=== PATIENT | female | born 1990 | race American Indian/Alaskan Native ===

== ENCOUNTER 2021-11-17 08:17 | Outpatient (CLI) | payer BC, SELFPAY ==
[2021-11-17 08:31] LABS: Glucose Fasting Check 85 mg/dl (60-115)
[2021-11-17 14:13] LABS: Glucose 1 Hour Gest 194 mg/dl (70-180)
[2021-11-17 14:13] LABS: Glucose GTT-Gestational 3 Hr 141 mg/dl (70-140)
== END 2021-11-17 08:18 | disposition home or self-care (01) ==
LOC: NFLDREF 08:18
PROVIDERS: Visit Provider Advanced Practice Midwife
DX: Z34.83 Encounter for supervision of other normal pregnancy, third trimester (principal); Z3A.31 31 weeks gestation of pregnancy
CPT/HCPCS: 82951; 82952

== ENCOUNTER 2021-12-27 08:40 | Outpatient (CLI) | payer BC, SELFPAY ==
--- OUTSIDE RECORDS SUMMARY | 2021-12-27 08:42 | XMS_ITS | Clinical Summary ---
:1990 Author Organization [address] [employer] [facility] [place] [address] Care Team Providers Name Role Phone Pierre Dyson MD Primary Care Provider [phone] Sang Vogt CNM Unavailable Allergies Active Allergy Reactions Severity Noted Date Comments Cats (Fur, Dander, Saliva) Throat Swelling/Closing High Cefaclor Hives 01/13/2020 Medications Medication Sig Dispensed Refills Start Date End Date Status albuterol HFA 90 Inhale 1-2 Puffs 1 Inhaler 0 01/13/2020 Active mcg/actuation inhaler by mouth every 4 hours if needed. fluticasone (50 mcg Inhale 2 Sprays 1 Bottle 0 01/13/2020 Active per actuation) nasal into both nostrils solution (FLONASE) once daily. flunisolide, 25 mcg INHALE 2 SPRAYS 25 mL 12 04/10/2021 Active per actuation, nasal INTO BOTH NOSTRILS (NASALIDE) 25 mcg TWO TIMES A DAY (0.025 %) nasal sprayIndications: Mild persistent asthma with exacerbation Breo Ellipta 100-25 INHALE ONE PUFF BY 60 Each 12 04/10/2021 Active mcg/dose MOUTH EVERY DAY inhalerIndications: Mild persistent asthma with exacerbation multivitamin Take 1 Tablet by 90 Tablet 3 05/25/2021 Active () 27 mg iron- mouth once daily 800 mcg with a meal. folicIndications: Encounter for supervision of other normal in first trimester Active Problems Problem Noted Date complicated by abdominal mass Estimated Date of Delivery Comments Yes 01/14/2022 Encounters Date Type Specialty Care Team Description 10/05/2021 Orders Only Scanner <No scans attac hed> 10/02/2021 Hospital Encounter [facility]idan Michel [facility] Travel from Last 3 Months Immunizations Name Administration Dates Next Due Influenza, IIV4 01/13/2020 Tdap 04/29/2018 Family History Medical History Relation Name Comments Diabetes Father Diabetes Mother Stroke Mother mini strokes Thyroid Disease Sister Relation Name Status Comments Father Alive Mother Alive Sister Social History Tobacco Use Types Packs/Day Years Used Date Never Smoker Smokeless Tobacco: Never Used Alcohol Use Standard Drinks/Week Comments Never 0 (1 standard drink = 0.6 oz pure alcoho l) Alcohol Habits Answer Date Recorded How often do you have a drink containing alcohol? Never 01/13/2020 How many drinks containing alcohol do you have on a typical Not asked day when you are drinking? How often do you have six or more drinks on one occasion? 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 See encounter summary. Progress Notes 05/25/2021 - 6w4d - Tiffany Ruiz RN OB Education. This is her 3 . H er significant other is involved. HPI: Currently she is feeling tired. Past Medical History: . Date ? ? Asthma ? ? Deaf ? ? Migraine headache ? ? Varicella OB History Para Term 3 2 2 There is no problem list on file for pablo s patient. Current Outpatient Rx Medication Sig Dispense Refill ? ? albuterol HFA 90 mcg/actuation inhaler Inhale 1-2 Puffs by mouth every 4 hours if needed. 1 Inhaler 0 ? ? Breo Ellipta 100-25 mcg/dose inhaler INHALE ONE PUFF BY MOUTH EVERY DAY 60 Each 12 ? ? Crutch For home use. 1 Device 0 ? ? flunisolide, 25 mcg per actuation, nasal (NASALIDE) 25 mcg (0.025 %) nasal spray INHALE 2 SPRAYS INTO BOTH NOSTRILS TWO TIMES A DAY 25 mL 12 ? ? fluticasone (50 mcg per actuation) nasal solution (FLONASE) Inhale 2 Sprays into both nostrils once daily. 1 Bottle 0 Medications have been reviewed by me and are current to the best of my knowledge and ability. Discussed and given written information on the following topics: 1. Alcohol/Chemical Use: none 2. She does not smoke, and has not smoke d in the past. Quit smoking: none 3. Physical Activity: discussed Current activity:walk 2 miles 4. Screened for Domestic Abuse: none 5. Mood:goodnone 6. Meds, Herbs, Vitamins: discussed Given list of over the counter medicatio n that could be used in at the approval of the OB provider. 7. Nutrition: discussed Calcium intake is adequate. She does not take supplements. Caffeine: discussed Sugar substitute:none Fish:counseled, information provided and discussed Lunch meats:counseled Avoid foods high in calories from sugar and fat. Iron/protein intake Fluids 8. Sleep: adequate 9. Toxoplasmosis Precaution: none Exposure to cats:allegries 10.Quad Screen: none 11. Ultrasound 18-20 weeks. 12. Avoidance of sauna/hot tubes emphasi zed. 13. Frequency of visits: Monthly until 28 weeks then biweekly unt il 36 weeks, then weekly until 40 weeks unless problems. 14. Usual weight gain: 25-35 for women s tarting with normal weight. 15. Need for Rhogam shots based on blood typing done with labwork today. Rhogam shots at 28 weeks and [address] if still for Rh - mothers. Another Rhogam within 72 hours of delive ry if baby Rh positive. 16. Discussed CEA classes and Babystop a long with given written information. Breast or bottle feeding: breast Discussed resources available, nurses, O Camryn JAEGER, lacatation healthcare network consultant and Babystop class. Advised to check on breastpumps with in surance. 17. Reviewed Bloodwork to be done at [facility] [place] OB: CBC, Hepatitis B, HIV, RPR, Gonorrhea, Chlamydia, UA, URINE CULTURE, Drug screen, TSH, Blood type. RPR testing also done at 28 weeks and delivery. RPR at 28 weeks and after delivery. Tdap shot at end of . 18. visits: Bring list of questions. Warning signs: vaginal bleeding, fluid l eaking from your vagina, severe abdominal pain, nausea/vomiting more than 4-5 times a day or if not able to keep anything down, fever more than 100.4, problems wi th urination and headache that doesn't g o away with tylenol. A/P: OB Education. OB labs are ordered. She is in need of a prescription for vitamins and she has her next OB visit scheduled with Dr. Ugarte . 90 minutes spent with patient and greate r than 50% was spent on counseling. Tiffany Ruiz RN .................... 05/25/2021 10:21 AM NESS OPERATIONS ANALYST Last Filed Vital Signs Vital Sign Reading Time Taken Comments Blood Pressure 108/63 03/15/2020 2:45 PM BUSINESS OPERATIONS ANALYST Pulse 110 03/15/2020 2:45 PM BUSINESS OPERATIONS ANALYST Temperature 36.6 ??C (97.9 ??F) 03/15/2020 1:15 PM BUSINESS OPERATIONS ANALYST Respiratory Rate 16 03/15/2020 3:00 PM BUSINESS OPERATIONS ANALYST Oxygen Saturation 99% 03/15/2020 2:45 PM BUSINESS OPERATIONS ANALYST Inhaled Oxygen Concentration - - Weight 66.2 kg (146 lb) 09/12/2020 10:39 AM CDT Height 157.5 cm (5' 2.01) 09/12/2020 10:39 AM CDT Body Mass Index 26.7 09/12/2020 10:39 AM CDT Plan of Treatment Health Maintenance Due Date Last Done Comments Pneumococcal series for age 19-64 09/08/1995 (1 - PCV) Hepatitis C screening for age 0509/08/2007 18-79 Pap test for age 21-65 2010 Depression screening for age 12+ 01/12/2021 01/13/2020 BMI (ht and wt on same day) for 09/12/2021 09/12/2020, 08/2020, age 18+ 03/10/2020, Additional history exists Influenza for age 9-49 12/28/2021 01/13/2020 Tetanus booster 04/29/2028 04/29/2018 Tdap Completed 04/29/2018 COVID-19 vaccine series Completed 04/19/2021, 09/02/2020, 08/11/2020 Medical Devices Implanted Type Area Millwright Helper Device Shelf Model / Identifier Expiration Serial / Date Lot Sys Meniscal Cvd 360 Fast-Fix - [id number] Left: Chavez Kelly nd Nephew 10/26/2022 [id number] / Implanted: Qty: 3 on 03/15/2020 by Marcello Arellano MD at [facility] / [id number] Description: From vendors stock Procedures Procedure Name Priority Date/Time Associated Diagnosis Comme nts SCAN-ULTRASOUND 10/05/2021 12:00 AM Resul ts for this REPORT CDT procedure are i n the results section. US OB DETAIL Routine 10/02/2021 1:46 PM High-risk pregna ncy Results for this ANATOMY SINGLE CDT in second trimester proced ure are in the results section. from Last 3 Months Results SCAN-ULTRASOUND REPORT (10/05/2021 12:00 AM CDT) Narrative This result has an attachment that is no t available. Scanner OTHER US OB DETAIL ANATOMY SINGLE (10/02/2021 1:46 PM CDT) Anatomical Region Laterality Modality , 2or 3 TRIMESTER Ult rasound Specimen (Source) Anatomical Collection Method Collection Time Re ceived Time Location / / Volume Laterality 10/02/2021 1:26 PM CDT Narrative 10/02/2021 1:50 PM CDT Referred By: SANG ??AUDELIA ??CNM Indications Code 24 weeks gestation of Z3A.24 Suspected right adrenal mass on ou tside ultrasound measuring 1.2 cm Normal NIPT Hx C/S x1 Pt is deaf Detail ultrasound IMPRESSION: Intrauterine at 24w 0d. presentation is Variable. EFW 678 grams, percentile: 53. ?? Growth parameters and estimated we ight are appropriate for gestational age. ? No major structural anomalies identified . No markers for aneuploidy identified. Normal Deepest Vertical Pocket of amniot ic fluid: 4.8 cm. Placental location: Anterior. ?? There is no evidence of placenta previa. The transabdominal cervical length is 3. 3 cm. ?? RECOMMENDATIONS: -Return to primary provider for continue d care. -No alterations in the delivery plan are necessary. -No medication changes are indicated. -No BPPs or NSTs suggested. -No further ultrasounds are necessary fo r the present indication. COMMENT: New government regulations related to Cures Act require that this note be released to the patient immediately, anai etimes before the referring provider has been contacted. ??The following information i s being provided to the patient. Present findings are reassuring. The cy ielivia was seen by the Perinatologist today. ??The previous ultrasound and the rec ords were reviewed. ??The results of today's ultrasound were communicated to the patient. Concern of adrenal mass in the fetus: No evidence of adrenal hemorrhage or masses were seen today. ??Although adrenal masses and hem orrhage are common causes of abdominal mass, I see no evidence of mass or hemorrhage. ??Ty pically a resolving hemorrhage will leave some residual area of echogenicity. ??When these resol ve, they rarely cause problems. ??Prior images were unable to be visualized for comparison reilly pedroza, however, detailed imaging as well as additional real-time ultrasound performed by myself are without any evidence of masses or abnormalities. ?? Reassurance was given. Patient was seen today with the assistan ce of an splicing technician. ??All questions were answered to her satisfact ion. Medical Decision Making: Low Level [address]0627 ?Limited Diagnoses including two or more self-limited problems, and concern of abdominal mass. ?Limited Data including review of p rior ultrasound and review of prior external notes ?Minimal risk of mortality to the f etus from additional testing. Services Provided: Procedures Code DETAIL ANATOMY 27607.0 Procedure Note Aidan Michel MD - 10/02/2021Format ting of this note might be different from the original. Referred By: SANG VOGT [facility] IndicationsCode 24 weeks gestation of [id number].24 Suspected right adrenal mass on ou tside ultrasound measuring 1.2 cm Normal NIPT Hx C/S x1 Pt is deaf Detail ultrasound IMPRESSION: Intrauterine at 24w 0d. presentation is Variable. EFW 678 grams, percentile: 53. Growth parameters and estimated we ight are appropriate for gestational age. No major structural anomalies identified . No markers for aneuploidy identified. Normal Deepest Vertical Pocket of amniot ic fluid: 4.8 cm. Placental location: Anterior. There is no evidence of placenta previa. The transabdominal cervical length is 3. 3 cm. RECOMMENDATIONS: -Return to primary provider for continue d care. -No alterations in the delivery plan are necessary. -No medication changes are indicated. -No BPPs or NSTs suggested. -No further ultrasounds are necessary fo r the present indication. COMMENT: New government regulations related to Cures Act require that this note be released to the patient immediately, anai etimes before the referring provider has been contacted. The following information is being provided to the patient. Present findings are reassuring. The pat ient was seen by the Perinatologist today. The previous ultrasound and the rec ords were reviewed. The results of today's ultrasound were communicated to the patient. Concern of adrenal mass in the fetus: No evidence of adrenal hemorrhage or masses were seen today. Although adrenal masses and hemor rhage are common causes of abdominal mass, I see no evidence of mass or hemorrhage. Typi ritu a resolving hemorrhage will leave some residual area of echogenicity. When these resolve , they rarely cause problems. Prior images were unable to be visualized for comparison t yovany, however, detailed imaging as well as additional real-time ultrasound performed by myself are without any evidence of masses or abnormalities. Reassurance was given. Patient was seen today with the assistan ce of an splicing technician. All questions were answered to her satisfact ion. Medical Decision Making: Low Level 50086 Limited Diagnoses including two or more self-limited problems, and concern of abdominal mass. Limited Data including review of prior ultrasound and review of prior external notes Minimal risk of mortality to the fetus from additional testing. Services Provided: ProceduresCode DETAIL [id number] Sang Vogt CNM from Last 3 Months Insurance Payer Benefit Plan / Subscriber ID Effective Dates Phone Addre ss Type AddThis [id number] 2019-Present [address] [place] [address] Advance Directives Latest Code Status on File Code Status Date Activated Date Inactivated Comments Full Code 03/15/2020 6:34 AM 03/15/2020 6:06 PM Code Status Discussion: Discussed Care Teams Certified Energy Manager Relationship Specialty Start Date End Date Pierre Dyson PCP - General Family Practice 03/01/20 MD [address] [place] [address] Sang Vogt CNM Referring Provider Certified Nurse Dimensional Integration Engineer 09/21/211999 [place] [address]
--- NOTE | 2021-12-27 08:45 | CRLHL7_ITS ---
For Patients: As a result of the Century Cures Act, medical imaging exams and procedure reports are released immediately into your electronic medical record. You may view this report before your referring provider. If you have questions, please contact your health care provider. INDICATION: Maternal care. TECHNIQUE: Ultrasound OB pelvis transabdominal. Real-time ayala-scale imaging of the fetus was performed without stress testing. COMPARISON: Ultrasound 09/11/2021. FINDINGS: Sonographic imaging demonstrates a single living intrauterine gestation. Fetus demonstrates a regular cardiac rate of 146 beats per minute. Fetus has a cephalic orientation. Amniotic fluid volume is normal with single deepest pocket measuring 7.1 cm. Placenta is anterior. Cervix is not visualized. Biometric measurements: Biparietal diameter: 9.3 cm, 37 week 6 day, 93rd percentile. Head circumference: 34.3 cm, 39 week 4 day, 91 percentile. Abdominal circumference: 35 cm, 38 week 5 day, greater than 97th percentile. Femur length: 6.8 cm, 34 week 5 day, 13th percentile. Estimated weight: 3322 grams, 89th percentile. Estimated ultrasound age by today`s measurements is 37 week 5 day. Amniotic fluid volume appears normal. breathing movements, motion, and tone were all observed. IMPRESSION: Single viable intrauterine with adequate interval growth. Fetus is 89th percentile based on estimated weight. Dictated by Fabricio Mason MD @ 12/27/2021 11:46:53 AM (Electronically Signed)
== END 2021-12-27 08:41 | disposition home or self-care (01) ==
LOC: US 08:41
PROVIDERS: Visit Provider Obstetrics & Gynecology
DX: O99.013 Anemia complicating pregnancy, third trimester (principal); Z3A.37 37 weeks gestation of pregnancy
CPT/HCPCS: 76816

== ENCOUNTER 2021-12-27 09:45 | Outpatient (CLI) | payer BC, SELFPAY ==
--- OUTSIDE RECORDS SUMMARY | 2021-12-27 09:46 | XMS_ITS | Clinical Summary ---
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 Advised to check on breastpumps with in surance. 17. Reviewed Bloodwork to be done at [facility] OB: CBC, Hepatitis B, HIV, RPR, Gonorrhea, [...] Tiffany Ruiz RN .................... 05/25/2021 10:21 AM AL FEEDER Last Filed Vital Signs Vital Sign Reading Time Taken Comments Blood Pressure 108/63 03/15/2020 2:45 PM ANIMAL FEEDER Pulse 110 03/15/2020 2:45 PM ANIMAL FEEDER Temperature 36.6 ??C (97.9 ??F) 03/15/2020 1:15 PM ANIMAL FEEDER Respiratory Rate 16 03/15/2020 3:00 PM ANIMAL FEEDER Oxygen Saturation 99% 03/15/2020 2:45 PM ANIMAL FEEDER Inhaled Oxygen Concentration - - Weight 66.2 [...] 09/02/2020, 08/11/2020 Medical Devices Implanted Type Area Molasses Coloring Operator Device Shelf Model / Identifier Expiration Serial / Date Lot Sys Meniscal Cvd 360 Fast-Fix - [id number] Left: Chavez Kelly nd Nephew 10/26/2022 [id number] / Implanted: Qty: 3 on 03/15/2020 by Marcello Arellano MD at [facility] / [id number] Description: From vendors stock Procedures Procedure Name [...] today with the assistan ce of an telecommunication systems designer. ??All questions were answered to her satisfact ion. Medical Decision Making: Low Level 77795 ?Limited Diagnoses including two or more self-limited problems, and concern of abdominal mass. ?Limited Data including review of p rior ultrasound and review of prior external notes ?Minimal risk of mortality to the f etus from additional testing. Services Provided: Procedures Code DETAIL ANATOMY 06460.0 Procedure Note Aidan Michel MD - 10/02/2021Format ting of this note might be different from the original. Referred By: SANG VOGT [facility] IndicationsCode 24 weeks gestation of [id number].24 Suspected right adrenal mass on ou tside [...] today with the assistan ce of an telecommunication systems designer. All questions were answered to her satisfact ion. Medical Decision Making: Low Level 18705 Limited Diagnoses including two or more self-limited problems, and concern of abdominal mass. Limited Data including review of prior ultrasound and review of prior external notes Minimal risk of mortality to the fetus from additional testing. Services Provided: ProceduresCode DETAIL [id number] Sang Vogt CNM from Last 3 Months Insurance Payer Benefit Plan / Subscriber ID Effective Dates Phone Addre ss Type Berg [id number] 2019-Present [address] [place] [address] Advance Directives Latest Code Status on File Code Status Date Activated Date Inactivated Comments Full Code 03/15/2020 6:34 AM 03/15/2020 6:06 PM Code Status Discussion: Discussed Care Teams Associate Professor Of Mathematics Relationship Specialty Start Date End Date Pierre Dyson PCP - General Family Practice 03/01/20 MD [address] [place] [address] Sang Vogt CNM Referring Provider Certified Nurse Logistics Support 09/21/211999 [place] [address]
[2021-12-28 11:39] LABS: Strep B DNA Probe NEGATIVE (Negative)
== END 2021-12-27 09:46 | disposition home or self-care (01) ==
LOC: NFLDREF 09:45
PROVIDERS: Visit Provider Obstetrics & Gynecology
DX: Z34.93 Encounter for supervision of normal pregnancy, unspecified, third trimester (principal)
CPT/HCPCS: 87081; 87653

== ENCOUNTER 2022-01-05 11:05 | Inpatient (IN) | payer BC, SELFPAY ==
[2022-01-05] VITALS (19 sets, daily range): BP systolic 106–125; BP diastolic 67–77; PULSE 86–104; RESP 16–20; TEMP 36.7–37.2; O2SAT 96–97; BMI 30.4
--- OUTSIDE RECORDS SUMMARY | 2022-01-05 10:56 | XMS_ITS | Clinical Summary ---
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 Advised to check on breastpumps with in surance. 17. Reviewed Bloodwork to be done at [facility] OB: CBC, Hepatitis B, [...] Tiffany Ruiz RN .................... 05/25/2021 10:21 AM AVING MACHINE OPERATOR Last Filed Vital Signs Vital Sign Reading Time Taken Comments Blood Pressure 108/63 03/15/2020 2:45 PM CONCAVING MACHINE OPERATOR Pulse 110 03/15/2020 2:45 PM CONCAVING MACHINE OPERATOR Temperature 36.6 ??C (97.9 ??F) 03/15/2020 1:15 PM CONCAVING MACHINE OPERATOR Respiratory Rate 16 03/15/2020 3:00 PM CONCAVING MACHINE OPERATOR Oxygen Saturation 99% 03/15/2020 2:45 PM CONCAVING MACHINE OPERATOR Inhaled Oxygen Concentration - - Weight 66.2 [...] wt on same day) for 09/12/2021 09/12/2020, 01/0 08/2020, age 18+ 03/10/2020, Additional history exists Influenza for age 9-49 12/28/2021 01/13/2020 Tetanus booster 04/29/2028 04/29/2018 Tdap Completed 04/29/2018 COVID-19 vaccine series Completed 04/19/2021, 09/02/2020, 08/11/2020 Medical Devices Implanted Type Area Collision Repair Technician Device Shelf Model / Identifier Expiration Serial / Date Lot Sys Meniscal Cvd 360 Fast-Fix - [id number] Left: Byrne A nd Nephew 10/26/2022 [id number] / Implanted: Qty: 3 on 03/15/2020 by Marcello Arellano MD at [facility] [employer] / [id number] Description: From vendors stock Procedures Procedure Name Priority Date/Time Associated Diagnosis Comme nts SCAN-ULTRASOUND 10/05/2021 12:00 AM Resul ts for this REPORT CDT procedure are i n the results section. from Last 3 Months Results SCAN-ULTRASOUND REPORT (10/05/2021 12:00 AM CDT) Narrative This result has an attachment that is no t available. Scanner OTHER from Last 3 Months Insurance Payer Benefit Plan / Subscriber ID Effective Dates Phone Addre ss Type Group [employer] [id number] 2019-Present [address] [place] [address] Advance Directives Latest Code Status on File Code Status Date Activated Date Inactivated Comments Full Code 03/15/2020 6:34 AM 03/15/2020 6:06 PM Code Status Discussion: Discussed Care Teams Inspector And Mender Relationship Specialty Start Date End Date Pierre Dyson PCP - General Family Practice 03/01/20 MD [address] [place] [address] Raine Vogt CNM Referring Provider Certified Nurse Student Services Counselor 09/21/211999 [place] [address]
[2022-01-05 12:00] LABS: Eosinophils Absolute Auto 0.03 K/uL (0.00-0.50); Eosinophils Percent Auto 0.3 % (0.0-7.0); Hematocrit 35.3 % (33.0-51.0); Hemoglobin* 12.1 gm/dL (12.0-16.0); Immature Granulocytes Abs Auto 0.02 K/uL (0.00-0.30); Lymphocytes Percent Auto 16.4 % (20-44); Mean Corpuscular HGB Conc 34 gm/dL (32-36); Mean Corpuscular Hemoglobin 32 pg (26-34); Mean Corpuscular Volume 92 fL (80-100); Monocytes Percent Auto 5.6 % (0.0-11.0); Neutrophils Percent Auto 77.5 % (42.0-72.0); Platelet Count* 212 K/uL (140-440); RDW Coefficient of Variation % 14.1 % (11.5-15.5); Red Blood Count 3.82 m/uL (4.00-5.20); White Blood Count* 9.26 K/uL (4.50-11.00)
[2022-01-05 12:02] LABS: Slide Review Reflex No
--- NOTE | 2022-01-05 12:24 | P.LDBA_ITS ---
Subjective History of Present Illness Time Seen by Provider: 12:25 Date Seen: 01/05/22 Narrative: Miriam is a 31yo with viable male fetus at 37w4d GA. SYLVAIN determined by sonogram at 7w4d, not consistent with LMP. She experieced SROM of copious clear fluid about 0800 today. movements normal. Some uterine contractions. course included late initiation of care with [facility] at 31w. Gestational diabetes with moderately good diet control. She took oral iron supplement for hemoglobin 10.6; declines blood transfusion. Flonase prn. GBS negative. Rh positive. Her first child was born vaginally, second was delivered by due to maternal exhaustion. She desires TOLAC; signed consent in clinic. Patient is being admitted to Labor and Delivery with SROM at 37w4d GA. Her full history and physical was dictated by Dr. Cassidy on 01.03.2022. Please see this for further details. Miriam is deaf; diplomatic interpreter/translator present. OB - H&P: Exam Physical Exam: Vital signs: Temp Pulse Resp BP Pulse Ox 98.9 F 88 16 107/69 96 01/05/22 11:54 01/05/22 11:54 01/05/22 11:54 01/05/22 11:54 01/05/22 10:18
--- NOTE | 2022-01-05 13:18 | PM.OBPNL ---
Pain Control Time Seen by Provider: 13:18 Date Seen: 01/05/22 Pain control: tolerating well Contractions Contraction pattern: Irregular Contraction intensity: Moderate Pelvic Exam Dilation (cm): 4 Effacement (%): 80 Station: -1 Comments: Copious fluid. Cervix soft, midposition. Fetus (Single) Amniotic Membrane Status: SROM status: Category l Assessment and Plan Comments: Will recheck cervix in 2-3 hours. Pitocin if no significant change. Check CBG 1H postprandial. If abnormal, consider insulin drip.
[2022-01-05 15:32] LABS: SARS PCR* Negative SARS-CoV-2 (Negative)
[2022-01-05] MEDS: LACTATED RINGERS 1000 ML 1,000 ML 125 ML IV (23:39)
[2022-01-05] MEDS: OXYTOCIN 30 unit/500 ML in NS 30 UNIT/500 ML BAG IVPB (23:40)
[2022-01-06] VITALS (16 sets, daily range): BP systolic 102–149; BP diastolic 59–86; PULSE 78–104; RESP 16–20; TEMP 36.6–37.1; O2SAT 95–96
[2022-01-06] MEDS: LIDOCAINE 1% MDV 20 ML INJECTION (03:28)
--- NOTE | 2022-01-06 04:00 | P.OBPRC_ITS ---
Procedure Delivery date: 01/06/22 Procedure Done: Global Procedure Details: Miriam is a 31yo now para 3003 who gave by to a vigorous viable male Violeta at 37w5d GA; baby is breastfed. SROM of clear fluid occurred about 0800 on 01.05.2022. Cervix was completely dilated at 0215 on 01.06.2022; she used nitrous oxide during Stage 2. Baby was born in OA position at 0309 on 01.06.2022. Placenta was spontaneous at 0313. A right lateral second-degree laceration was repaired in the usual fashion with 3- 0 Vicryl after adequate local anesthetic with lidocaine. QBL 150mL. Sponge and sharp counts correct. Mother and stable in room 202. She is GBS negative, Rh positive, rubella immune. Her was complicated history of for maternal exhaustion, by GDM A1--with excellent postprandial CBG at Center--as well as by mild anemia of treated with oral iron. 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
[2022-01-06] MEDS: IBUPROFEN 600 MG TABLET PO ×4 (05:41→22:16)
[2022-01-06] MEDS: bisacodyL 5 MG TABLET DR PO (21:33)
[2022-01-07] MEDS: IBUPROFEN 600 MG TABLET PO ×2 (05:22→11:15)
[2022-01-07 05:41] VITALS: BP 99/65; PULSE 84; RESP 16; TEMP 36.6; O2SAT 96
[2022-01-07 07:08] LABS: Hemoglobin* 11.2 gm/dL (12.0-16.0)
--- NOTE | 2022-01-07 10:33 | PM.OBDSVD1 ---
DS: Providers Provider Time Seen by Provider: 10:33 Date Seen: 01/07/22 Date of admission: 01/05/22 11:05 Primary care physician: Not a Local Provider Admitting Clinician: Jeremy Montenegro MD Attending Physician on discharge: Jeremy Montenegro MD Date of Discharge: 01/07/22 DS: Diagnosis Discharge Diagnosis (1) Gestational diabetes: Status: Acute Problem details: Diet controlled. (2) Deaf: Status: Acute Problem details: Needs ASL interpretor (3) Vaginal after (): Status: Acute Problem details: with right oblique second-degree perineal laceration DS: Medications Discharge Medications Other Medication Instructions: OTC ibuprofen 600mg PO Q6H PRN. OTC acetaminophen 500-1000mg PO Q6H PRN pain not relieved >1H after ibuprofen. Exam Const: Vital Signs, click to edit/add: Vital Signs - 24 hr 01/06/22 13:00 01/06/22 16:14 01/06/22 21:18 Temperature 98.2 F 98.4 F 97.8 F Pulse Rate [Pulse Oximeter] 88 86 90 Respiratory Rate 20 18 16 Blood Pressure [Ri ght Arm] 102/76 103/74 113/79 Pulse Oximetry 95 95 96 Oxygen Delivery Me thod Room Air Room Air Room Air 01/07/22 05:41 Temperature 97.8 F Pulse Rate [Pulse Oximeter] 84 Respiratory Rate 16 Blood Pressure [Ri ght Arm] 99/65 Pulse Oximetry 96 Oxygen Delivery Me thod Room Air Documenting provider has reviewed patient's vital signs: yes Common normals: no apparent distress and healthy appearing General appearance: cooperative, comfortable and well developed HENMT: General ear: hearing grossly impaired Neck & C-Spine: Common normals: full ROM General: normal visual inspection Resp: Common normals: normal respiratory effort and no use of accessory muscles Cardio: Common normals: regular rate Rate: regular rate Extremity: Common normals: normal to inspection and full ROM Neuro: Common normals: CN's II-XII intact bilaterally Psych: Common normals: mental status grossly normal, cooperative and affect normal OB - DS: Summary Hospital Course Hospital Course: Miriam wright a 31 year old now P 3003 who was admitted to the Center on 01/05/22 for TOLAC after onset of spontaneous labor. She gave to a viable vigorous male Violeta by vaginal delivery on 01.06.2022. A right oblique second-degree perineal laceration was repaired in the usual fashion. PPD#1 hemoglobin 11.2. Uterine and perineal pain is well controlled. Lochia is moderate and decreasing. She is voiding completely. Passing flatus; no N/v. She is breast feeding, and has a pump at home. She is Rh positive, rubella immune; she received Tdap in October. Asthma stable with daily Flonase. Peripartum Data complications: none [place] Gender: Male Discharge Plan: Home Time Spent with Patient Time attestation: Total time spent providing and/or coordinating discharge services: Discharge Plan Discharge Disposition: Home, Self-Care Date of Admission: 01/05/22 11:05 Attending Provider on Discharge: Jeremy Montenegro Primary Care Provider: Provider,Not a Local Condition: Stable Anticipated Discharge Date/Time: 01/07/22 00:29 Discharge Medications: New acetaminophen 500 mg Tablet 1,000 mg PO Q6H PRN (Reason: refractory pain 1H after NSAID) Qty: 1 0RF bisacodyl [Gentle Laxative (bisacodyl)] 5 mg Tablet,Delayed Release (Dr/Ec) 5 mg PO BID PRN (Reason: constipation) Qty: 1 0RF guaifenesin [Mucinex] 600 mg Tablet Extended Release 12hr 1,200 mg PO BID Qty: 1 0RF ibuprofen 600 mg Tablet 600 mg PO Q6H Qty: 1 0RF pramoxine 1 % Foam 1 applic topical QID PRNQty: 15 0RF Lanolin (HPA) 100 % Cream 1 applic topical Q1H PRNQty: 7 0RF Continued fluticasone furoate-vilanterol 100-25 mcg/dose blister with device 1 inh inhalation DAILY prenat.vits,david,[id number] Tablet 1 tab PO QDAY fluticasone propionate [Flonase Allergy Relief] 50 mcg/actuation spray,suspension 1 spray intranasal QDAY Rx Instructions: administer into each nostril Discontinued ferrous sulfate 325 mg (65 mg iron) tablet 325 mg PO QDAY Qty: 60 1RF (DME) Blood Glucose Meter Misc See Rx Instructions .MEDSUPPLY Qty: 1 0RF Rx Instructions: As directed (DME) lancets Misc See Rx Instructions .MEDSUPPLY Qty: 100 3RF Rx Instructions: Test blood sugar 4 times daily. (DME) Blood Glucose Meter Misc See Rx Instructions .MEDSUPPLY Qty: 1 0RF Rx Instructions: As directed (DME) Test Strips Misc See Rx Instructions .MEDSUPPLY Qty: 100 3RF Rx Instructions: Test blood sugar 4 times daily. Discharge Orders: Discharge Order (Routine); Ordered 01/07/22 Ordered By: Jeremy Montenegro Patient Education: OB Vaginal/Breast Feeding Activity Level: Activity as Tolerated Discharge Diet: High Fiber Follow Up Appointments: Provider,Not a Local [Primary Care Provider] - Forms: MyHealth Info Instructions
== END 2022-01-07 11:49 | disposition home or self-care (01) | DRG 560 ==
LOC: OB CLI 11:15 → OB 11:15
PROVIDERS: Admitting Provider Obstetrics & Gynecology; Visit Provider Obstetrics & Gynecology
DX: O34.211 Maternal care for low transverse scar from previous cesarean delivery (principal); O24.420 Gestational diabetes mellitus in childbirth, diet controlled; O70.1 Second degree perineal laceration during delivery; O99.02 Anemia complicating childbirth; D64.9 Anemia, unspecified; H91.90 Unspecified hearing loss, unspecified ear; Z3A.37 37 weeks gestation of pregnancy; Z37.0 Single live birth
CPT/HCPCS: 36415; 85018; 85025; 86850; 86900; 86901; 87635; 99213; A9270; J7120

== ENCOUNTER 2023-06-03 08:40 | Outpatient (CLI) | payer BC, SELFPAY ==
--- OUTSIDE RECORDS SUMMARY | 2023-06-03 08:42 | XMS_ITS | Clinical Summary ---
Author Name Unknown Organization [facility] Address [place], [place] [address] Care Team Providers Care Websphere Commerce Developer Name Role Phone Pierre Dyson MD Primary Care Provider Raine Vogt CNM Unavailable [phone] Allergies Active Allergy Reactions Criticality Noted Date Comments Cats (Fur, Dander, Saliva) Throat Swelling/Closing High 01/13/2020 Cefaclor Hives 01/13/2020 Medications Medication Sig Dispensed Refills Start Date End Date Status fluticasone (50 mcg per actuation) nasal solution (FLONASE) Inhale 2 Sprays into both nostrils once daily. 1 Bottle 0 01/13/2020 Active multivitamin () 27 mg iron- 800 mcg folicIndications:Enco unter for supervision of other normal in first trimester Take 1 Tablet by mouth once daily with a meal. 90 Tablet 3 05/25/2021 Active levothyroxine (SYNTHROID) 75 mcg tabletIndications:Hyp othyroidism (acquired) Take 1 Tablet (75 mcg) by mouth before breakfast. 90 Tablet 3 09/10/2022 Active diclofenac topical (VOLTAREN) 1 % gelIndications:Acute pain of left knee,Knee strain, left, initial encounter Apply 4 g topically to affected area(s) four times daily. 50 g 0 03/15/2023 Active albuterol HFA (PRO-AIR; VENTOLIN; PROVENTIL) 90 mcg/actuation inhalerIndications:Mi ld persistent asthma with exacerbation Inhale 2 Puffs by mouth every 4 hours if needed for Shortness Of Breath. 18 g 12 04/10/2023 Active flunisolide, 25 mcg per actuation, nasal (NASALIDE) 25 mcg (0.025 %) nasal sprayIndications:Mild persistent asthma with exacerbation Inhale 2 Sprays to both nostrils two times daily. 50 mL 12 04/10/2023 Active fluticasone furoate-vilanteroL (Breo Ellipta) 100-25 mcg/dose inhalerIndications:Mi ld persistent asthma with exacerbation Inhale 1 Puff by mouth once daily. 120 Each 04/10/2023 Active Active Problems Problem Noted Date Diagnosed Date Primary osteoarthritis of left knee 05/10/2023 Chondromalacia of left knee 05/10/2023 Bodies, loose, joint, knee, left 05/10/2023 Bilateral sensorineural hearing loss 04/02/2022 ASCUS with positive high risk HPV cervical 02/02 Overview: 01/30/2022: NIL/HPV 18+ 03/05/2022: Charlotte and ECC - NED 1 04/10/2023: ASCUS/HPV 18+ Plan: Colposcopy complicated by abdominal mass Comments Yes Encounters Date Type Department Care Team Description 05/10/2023 9:00 AM MULTICULTURAL SERVICES LIBRARIAN Office Visit [facility] [address] [phone] Marcello Valenzuela MD Follow Up (left knee MRI results) 05/09/2023 Travel 05/08/2023 11:00 AM MULTICULTURAL SERVICES LIBRARIAN - 05/08/2023 11:59 PM MULTICULTURAL SERVICES LIBRARIAN Hospital Encounter [facility] [address] [place] [address] Marcello Valenzuela MD Acute pain of left knee 05/08/2023 Travel 04/25/2023 Telephone [facility] [address] [place] [address] Pierre Dyson MD Pap Plan (Colposcopy ) 04/10/2023 1:20 PM MULTICULTURAL SERVICES LIBRARIAN Office Visit [facility] [address] [place] [address] Pierre Dyson MD Physical; Immunization/Injecti on (COVID-19 vaccine) 04/10/2023 Travel 03/18/2023 4:20 PM MULTICULTURAL SERVICES LIBRARIAN Ancillary Procedure [facility] [address] [place] [phone] 03/18/2023 4:00 PM MULTICULTURAL SERVICES LIBRARIAN Office Visit [facility] [address] [place] [phone] Marcello Valenzuela MD [facility] Med (Left Knee- 03/14/2023) 03/18/2023 Travel 03/15/2023 3:10 PM MULTICULTURAL SERVICES LIBRARIAN Ancillary [address] [address] 03/15/2023 2:20 PM MULTICULTURAL SERVICES LIBRARIAN Office Visit [facility] [address] [place] [address] [place] [phone] Jose Hirsch PA Knee Injury (L knee injury; WC 03/14/23 s/p turning quickly to tend to child she felt her knee lock up, immediate pain and could not bear weight on L leg. ) 03/15/2023 12:30 PM MULTICULTURAL SERVICES LIBRARIAN Office Visit [facility] [address] [place] [address] [place] [phone] No Show 03/15/2023 Travel from Last 3 Months Immunizations Name Administration Dates Next Due COVID-19 Vaccine Spikevax (M oderna 50mcg/0.5mL) 12YO+ [id number] Formula PF 04/10/2023 COVID-19 vaccine (Smarty RingBio NTech 30mcg/0.3mL) 12YO+ BIVALENT PF, MDV 01/30/2022 Influenza, IIV4 01/28/2023, 2,06/09/2021,2019 Pneumococcal Conj 20-valent (Prevnar 20) 04/10/2023 Tdap 11/09/2021,04/29/2018 Family History Medical History Relation Name Comments No Known Problems Brother No Known Problems Daughter Diabetes Father No Known Problems Half-Brother No Known Problems Half-Sister No Known Problems Maternal Aunt No Known Problems Maternal Grandfather No Known Problems Maternal Grandmother No Known Problems Maternal Uncle Diabetes Mother Stroke Mother mini strokes No Known Problems Other No Known Problems Paternal Aunt No Known Problems Paternal Grandfather No Known Problems Paternal Grandmother No Known Problems Paternal Uncle Thyroid Disease Sister No Known Problems Son Relation Name Status Comments Brother Daughter Father Alive Half-Brother Half-Sister Maternal Aunt Maternal Grandfather Maternal Grandmother Maternal Uncle Mother Alive Other Paternal Aunt Paternal Grandfather Paternal Grandmother Paternal Uncle Sister Son Social History Tobacco Use Types Packs/Day Years Used Date Smoking Tobacco: Never Smokeless Tobacco: Never Alcohol Use Standard Drinks/Week Comments Never 0 (1 standard drink = 0.6 oz pur e alcohol) PHQ-2 Answer Date Recorded PHQ-2 TOTAL SCORE 0 04/10/2023 Social Connections Answer Date Recorded Frequency of Communication with Friends and Fami ly 0 07/24/2022 Financial Resource Strain Answer Date R ecorded Difficulty of Paying Living Expenses 3 07/24/2022 Difficulty of Paying Living Expenses Not on file 07/24/2022 Food Insecurity Answer Date Recorded Worried About Running Out of Food in the Last Ye ar 1 07/24/2022 Transportation Needs Answer Date Record ed Lack of Transportation (Medical) 1 07/24/2022 Housing Stability Answer Date Recorded Unable to Pay for Housing in the Last Year 1 07/24/2022 Comments Yes Sex and Gender Information Value Date Recorded Sex Assigned at Female 04/30/2020 1:15 PM MULTICULTURAL SERVICES LIBRARIAN Gender Identity Female 04/30/2020 1:15 PM MULTICULTURAL SERVICES LIBRARIAN Sexual Orientation Choose not to disclose 2020 9:29 PM MULTICULTURAL SERVICES LIBRARIAN Obstetrics History Para Term AB IAB SAB Ectopic Multiple Livin g Live Births 4 2 2 Date Outcome GA Total Labor Labor/2nd/3rd Weight Sex Delivery Anes PTL Naomie A1 A5 Name Cl in Term F CS-Class i david Term M Vag Current Summary Episode Dates Number of Fetuses Estimated Date of Delivery 05/10/2023 - Present (06/03/2023) Unknown Dating Summary Based On SYLVAIN GA Diff Last Menstrual Period on 03/29/2023 (Exact Date) 01/03/2024 Last Filed Vital Signs Vital Sign Reading Time Taken Comments Blood Pressure 104/80 04/10/2023 1:32 PM MULTICULTURAL SERVICES LIBRARIAN Pulse 84 04/10/2023 1:32 PM MULTICULTURAL SERVICES LIBRARIAN Temperature 36.7 ??C (98 ??F) 03/15/2023 2:31 PM MULTICULTURAL SERVICES LIBRARIAN Respiratory Rate 18 03/15/2023 2:31 PM MULTICULTURAL SERVICES LIBRARIAN Oxygen Saturation 98% 03/15/2023 2:31 PM MULTICULTURAL SERVICES LIBRARIAN Inhaled Oxygen Concentration - - Weight 74.4 kg (164 lb) 04/10/2023 1:32 PM MULTICULTURAL SERVICES LIBRARIAN Height 160 cm (5' 3) 04/10/2023 1:32 PM MULTICULTURAL SERVICES LIBRARIAN Body Mass Index 29.05 04/10/2023 1:32 PM MULTICULTURAL SERVICES LIBRARIAN Plan of Treatment Upcoming Encounters Date Type Department Care Team (Late st Contact Info) Description 06/14/2023 11:15 AM MULTICULTURAL SERVICES LIBRARIAN OB Encounter [facility] [address] [place] [address] Jeanna Hernandez MD [address] [place] [address] Health Maintenance Due Date Last Done Comments HIV for age 15-65 2004 BMI (ht and wt on same day) for age 18+ 04/10/2024 04/10/2023, 09/06/2022, 07/24/2022, Additional history exists Depression screening for age 12+ 04/10/2024 04/10/2023, 01/30/2022, 01/09/2022, Additional history exists Pap test for age 21-65 04/10/2024 , 04/10/2023, 03/05/2022, Additional history exists Tetanus booster 11/10/2031 11/09/2021, 04/29/2018 Tdap Completed 11/09/2021, 04/29/2018 Hepatitis C screening for ag e 18-79 Completed 01/30/2022 Influenza for age 9-49 Completed 3, 01/30/2022, 06/09/2021, Additional history exists COVID-19 vaccine series Completed 04/10/20 23, 01/30/2022, 04/19/2021, Additional history exists Pneumococcal series for age 6-64 Completed 04/10/20 23 Medical Devices Implanted Type Area Mercury Recoverer Device Identifier Shelf Expiration Date Model / Serial / Lot Sys Meniscal Cvd 360 Fast-Fix - [id number] Implanted:Qty: 2 on 03/15/2020 by Marcello Valenzuela MD at [facility] Left: Knee [employer] 11/09/2022 [id number] / / [id number] Sys Meniscal Rev Cvd 360 Fast-Fix - [id number] Implanted:Qty: 1 on 03/15/2020 by Marcello Valenzuela MD at [facility] Left: Knee [employer] 05/27/2020 [id number] / / [id number] Sys Meniscal Cvd 360 Fast-Fix - [id number] Implanted:Qty: 3 on 03/15/2020 by Marcello Valenzuela MD at [facility] Left: Knee [employer] 10/26/2022 [id number] / / [id number] Description:From vendors sto ck Procedures Procedure Name Priority Date/Time Associated Diagnosis Comments MR KNEE LEFT WO Routine 05/08/2023 11:33 AM MULTICULTURAL SERVICES LIBRARIAN Acute pain of left knee STEAM HOIST OPERATOR THIN PREP PAP SCREEN IMAGED Routine 04/10/2023 5:30 PM MULTICULTURAL SERVICES LIBRARIAN Pap smear for cervical cancer screening HPV THIN PREP Routine 04/10/2023 5:30 PM MULTICULTURAL SERVICES LIBRARIAN Pap smear for cervical cancer screening TSH Routine 04/10/2023 2:24 PM MULTICULTURAL SERVICES LIBRARIAN Hypothyroidism (acquired) XR KNEE 1 VIEW LEFT Routine 03/18/2023 3 :59 PM MULTICULTURAL SERVICES LIBRARIAN Acute pain of left knee XR KNEE 3 VIEWS LEFT STAT 03/15/2023 3:23 PM MULTICULTURAL SERVICES LIBRARIAN Acute pain of left knee from Last 3 Months Results * MR KNEE LEFT WO CONTRAST (05/08/2023 11:33 AM MULTICULTURAL SERVICES LIBRARIAN) Anatomical Region Laterality Modality KNEE L Magnetic Resonan ce 05/09/2023 12:5 5 PM MULTICULTURAL SERVICES LIBRARIAN Impressions 05/09/2023 12:55 PM MULTICULTURAL SERVICES LIBRARIAN 1. Interval partial medial meniscectomy without recurrent meniscal tear. 2. ACL graft is again identified and is intact. 3. Loose bodies in the posterior aspect of the intercondylar notch and anterior aspect of the medial compartment are new in the interval. 4. Slight progression of the lateral compartment chondromalacia including focal area of full thickness chondromalacia. 5. Mild chondromalacia in the medial compartment. 6. Small knee joint effusion. Dictated by Eleuterio Massey MD @ 05/09/2023 12:55:48 PM (Electronically Signed) Narrative 05/09/2023 12:55 PM MULTICULTURAL SERVICES LIBRARIAN For Patients: ??As a result of the Century Cures Act, medical imaging exams and procedure reports are released immediately into your electronic medical record. ??You may view this report before your referring provider. ??If you have questions, please contact your health care provider. INDICATION: Acute knee pain. History of ACL and meniscal repairs. COMPARISON: 01/20/2020 MRI. TECHNIQUE: Unenhanced MRI of the left knee. FINDINGS: Medial compartment: Interval partial medial meniscectomy with resection of the bucket-handle fragment. No recurrent medial meniscal tear. The root attachments are intact. Articular cartilage: Mild chondral fissuring and thinning centrally remains unchanged. Lateral compartment: Lateral meniscus: Intact. Articular cartilage: High-grade partial thickness chondromalacia posteriorly including a focal 1.3 centimeter area full thickness chondromalacia. Findings have progressed the interval. Mild thinning and fissuring centrally. Patellofemoral compartment: Articular cartilage: The articular surfaces are smooth without focal articular cartilage defect or subchondral marrow changes. The patellofemoral compartment. Ligaments: Anterior cruciate ligament: The ACL graft is again identified. The graft is intact without tear or arthrofibrosis. Posterior cruciate ligament: Intact. Medial collateral ligament and posteromedial corner complex: Medial collateral ligament: Normal. The medial head of the gastrocnemius and semimembranosus tendons: Normal. The lateral collateral ligament complex and posterior lateral corner complex: Fibular collateral ligament: Normal. Biceps femoris tendon complex: Normal. Iliotibial band: Normal. Popliteus tendon: Normal. Posterolateral corner capsule: Normal. Extensor mechanism: Distal quadriceps tendon: Normal. Patellar tendon: Normal. Medial patellar retinaculum and medial patellofemoral ligament: Normal. Lateral patellar retinaculum: Normal. No patellar tilt or subluxation. Joint space and capsule: There are 2 new intra-articular bodies. There is an intra-articular body posterior to the PCL that measures up to 0.9 cm in size and a 2nd loose body at the anterior medial margin of the medial compartment adjacent to the medial femoral condyle that measures up to 1.1 cm in size. Small knee joint effusion. No popliteal cyst. Bones and soft tissues: No fracture or contusion. No osseous lesion. No subcutaneous edema or hematoma. Procedure Note Eleuterio Massey MD - 05/09/2023 For Patients: As a result of the Cures Act, medical imagingexams and procedure reports are released immediately into your electronicmedical record. You may view this report before your referring provider.If you have questions, please contact your health care provider. INDICATION: Acute knee pain. History of ACL and meniscal repairs. COMPARISON: 01/20/2020 MRI. TECHNIQUE: Unenhanced MRI of the left knee. FINDINGS: Medial compartment: Interval partial medial meniscectomy with resection ofthe bucket-handle fragment. No recurrent medial meniscal tear. The rootattachments are intact. Articular cartilage: Mild chondral fissuring and thinning centrallyremains unchanged. Lateral compartment: Lateral meniscus: Intact. Articular cartilage: High-grade partial thickness chondromalaciaposteriorly including a focal 1.3 centimeter area full thicknesschondromalacia. Findings have progressed the interval. Mild thinning andfissuring centrally. Patellofemoral compartment: Articular cartilage: The articular surfaces are smooth without focalarticular cartilage defect or subchondral marrow changes. The patellofemoral compartment. Ligaments: Anterior cruciate ligament: The ACL graft is again identified. The graftis intact without tear or arthrofibrosis. Posterior cruciate ligament: Intact. Medial collateral ligament and posteromedial corner complex: Medial collateral ligament: Normal. The medial head of the gastrocnemius and semimembranosus tendons:Normal. The lateral collateral ligament complex and posterior lateral cornercomplex: Fibular collateral ligament: Normal. Biceps femoris tendon complex: Normal. Iliotibial band: Normal. Popliteus tendon: Normal. Posterolateral corner capsule: Normal. Extensor mechanism: Distal quadriceps tendon: Normal. Patellar tendon: Normal. Medial patellar retinaculum and medial patellofemoral ligament: Normal. Lateral patellar retinaculum: Normal. No patellar tilt or subluxation. Joint space and capsule: There are 2 new intra-articular bodies. There isan intra-articular body posterior to the PCL that measures up to 0.9 cm insize and a 2nd loose body at the anterior medial margin of the medialcompartment adjacent to the medial femoral condyle that measures up to 1.1cm in size. Small knee joint effusion. No popliteal cyst. Bones and soft tissues: No fracture or contusion. No osseous lesion. Nosubcutaneous edema or hematoma. IMPRESSION: 1. Interval partial medial meniscectomy without recurrent meniscal tear. 2. ACL graft is again identified and is intact. 3. Loose bodies in the posterior aspect of the intercondylar notch andanterior aspect of the medial compartment are new in the interval. 4. Slight progression of the lateral compartment chondromalacia includingfocal area of full thickness chondromalacia. 5. Mild chondromalacia in the medial compartment. 6. Small knee joint effusion. Dictated by Eleuterio Massey MD @ 05/09/2023 12:55:48 PM (Electronically Signed) Marcello Valenzuela MD MR * (ABNORMAL) STEAM HOIST OPERATOR THIN PREP PAP SCREEN IMAGED (04/10/2023 5:30 PM MULTICULTURAL SERVICES LIBRARIAN) Case Report Gynecologic Cytology Report ? Case: [id number] ? Authorizing Provider: ??Pierre Dyson MD Collected: ? 04/10/2023 1730 ? [facility] ?Received: ?04/10/2023 1730 ? Clinic ? First Screen: ?Shanthi Bustamante ? Rescreen: ?Chappell, Swati ? Pathologist: ? Chely Jameson ? MD Arlette ? Specimen: ?STEAM HOIST OPERATOR ThinPrep Vial Screening, Cervical ? 04/24/2023 3:13 PM MULTICULTURAL SERVICES LIBRARIAN [facility] INTERPRETATION/ RESULT ATYPICAL SQUAMOUS CELLS OF UNDETERMINED SIGNIFICANCE (ASCUS)(A) (none) 04/24/2023 3:13 PM MULTICULTURAL SERVICES LIBRARIAN [facility] R NON-NEOPLASTIC FINDING(S) Parakeratosis 04/24/2023 3:13 PM MULTICULTURAL SERVICES LIBRARIAN [facility] SPECIMEN ADEQUACY Satisfactory for evaluation Endocervical component present 04/24/2023 3:13 PM MULTICULTURAL SERVICES LIBRARIAN [facility] ENTRAL LABORATORY HPV REQUEST HPV and PAP 04/24/2023 3:13 PM MULTICULTURAL SERVICES LIBRARIAN [facility] ENTRAL LABORATORY Date of LMP 03/29/2023 04/24/2023 3:13 PM MULTICULTURAL SERVICES LIBRARIAN [facility] ENTRAL LABORATORY Last Pap Date 01/30/22 04/24/2023 3:13 PM MULTICULTURAL SERVICES LIBRARIAN [facility] ENTRAL LABOR[facility]ORY Last Pap Result NIL 3:13 PM MULTICULTURAL SERVICES LIBRARIAN [facility] ENTRAL LABORATORY Abnormal Pap or Charlotte Bx in last 5 years Yes 04/24/2023 3:13 PM MULTICULTURAL SERVICES LIBRARIAN [facility] ENTRAL LABORATORY Menstrual Status Regular Periods 04/24/2023 3:13 PM MULTICULTURAL SERVICES LIBRARIAN [facility] ENTRDE LABORATORY Charlotte Bx Done Today No 04/24/2023 3:13 PM MULTICULTURAL SERVICES LIBRARIAN [facility] LAB[facility] Additional Information None given 04/24/2023 3:13 PM MULTICULTURAL SERVICES LIBRARIAN [facility] ENTRAL LABORATORY Comment: Cytology is screened at [facility] - [address] [address] and [facility] [place] [facility] - [address] [address] and [facility] - [address] [place] [address] Interpreted at [facility] - [address], [place] [address] Automated Review Successful 04/24/2023 3:13 PM MULTICULTURAL SERVICES LIBRARIAN [facility] ENTRDE LABORATORY Comment:Specimen processed s uccessfully by automated manager cable device, ThinPrep Imaging System, [employer] ANCILLARY TESTING STEAM HOIST OPERATOR HPV Ordered, Please see separate report 04/24/2023 3:13 PM MULTICULTURAL SERVICES LIBRARIAN [facility] Note The pap test is a screening technique, not a diagnostic procedure. It is used primarily to screen for squamous cancers and precursor lesions. Published studies have shown that it is subject to both false negative and false positive results. The pap test should not be used as the sole means to diagnose or exclude pre-malignant and malignant lesions. 04/24/2023 3:13 PM MULTICULTURAL SERVICES LIBRARIAN [facility] EN[facility]AL LABORAT[facility] Other (Cervical) Non-Blood / Unknown 04/10/2023 5:30 PM MULTICULTURAL SERVICES LIBRARIAN 04/10/2023 5:30 PM MULTICULTURAL SERVICES LIBRARIAN Pierre Dyson MD PATHOLOGY/CYTOL OGY Performing Organization Address [facility]/ZIP Co de Phone Number [facility] [address] [place] [address], * (ABNORMAL) HPV HIGH RISK (04/10/2023 5:30 PM MULTICULTURAL SERVICES LIBRARIAN) TYPE 16 Negative Negative 04/15/2023 11:31 AM MULTICULTURAL SERVICES LIBRARIAN [facility] TRAL LABORATORY TYPE 18 Positive(A) Negative 04/15/2023 11:31 AM MULTICULTURAL SERVICES LIBRARIAN [facility] TRAL LABORAT[facility] OTHER HIGH RISK TYPES Negative Negative 04/15/2023 11:31 AM MULTICULTURAL SERVICES LIBRARIAN [facility] TRA LABORATORY Other (Cervical) Non-Blood / Unknown 04/10/2023 5:30 PM MULTICULTURAL SERVICES LIBRARIAN 04/11/2023 2:46 PM MULTICULTURAL SERVICES LIBRARIAN Narrative [facility] - 04/15/2023 11:31 AM MULTICULTURAL SERVICES LIBRARIAN Specimen is positive for HPV type 18 DNA. ??HPV types 16, 31, 33, 35, 39, 45, 51, 52, 56, 58, 59, 66 and 68 DNA were undetectable or below the pre-set threshold. Methodology: Mee Omar 4800 HPV Test Pierre Dyson MD MICROBIOLOGY Performing Organization Address City/[facility]/ZIP Co de Phone Number [facility] [address] [place] [address], * TSH (04/10/2023 2:24 PM MULTICULTURAL SERVICES LIBRARIAN) TSH 0.44 0.27 - 4.20 uIU/mL 04/10/2023 3:06 PM MULTICULTURAL SERVICES LIBRARIAN [facility] Blood BLOOD SPECIMEN / Unknown Venipuncture / Unknown 04/10/2023 2:24 PM MULTICULTURAL SERVICES LIBRARIAN 04/10/2023 2:25 PM MULTICULTURAL SERVICES LIBRARIAN Narrative [facility] - 04/10/2023 3:06 PM MULTICULTURAL SERVICES LIBRARIAN In Adults, TSH values between 5.00 and 10.00 uIU/ml do not necessarily indicate the presence of Hypothyroidism. Correlation with clinical findings such as presence of goiter and/or Thyroperoxidase (TPO) Antibody may be helpful. For more information please refer to CLEMENTE 2004; 291: 228-238. Pierre Dyson MD CHEMISTRY [facility] [address] [place] [address] * XR KNEE 1 VIEW LEFT (03/18/2023 3:59 PM MULTICULTURAL SERVICES LIBRARIAN) Anatomical Region Laterality Modality KNEE L Computed Radiogr aphy 03/19/2023 7:22 AM MULTICULTURAL SERVICES LIBRARIAN Narrative 03/19/2023 7:22 AM MULTICULTURAL SERVICES LIBRARIAN For Patients: ??As a result of the Cures Act, medical imaging exams and procedure reports are released immediately into your electronic medical record. ??You may view this report before your referring provider. ??If you have questions, please contact your health care provider. INDICATION: Acute left knee pain. TECHNIQUE: One view left knee. COMPARISON: 03/15/2023. FINDINGS: Gerber weightbearing view. Arthritic spurring medial and lateral compartment with mild medial compartment narrowing. Prior ACL repair. No subarticular defects identified. Dictated by Jairo Valenzuela MD @ 03/19/2023 7:22:08 AM (Electronically Signed) Procedure Note Ochoa Valenzuela MD - 03/19/2023 For Patients: As a result of the Cures Act, medical imagingexams and procedure reports are released immediately into your electronicmedical record. You may view this report before your referring provider.If you have questions, please contact your health care provider. INDICATION: Acute left knee pain. TECHNIQUE: One view left knee. COMPARISON: 03/15/2023. FINDINGS: Gerber weightbearing view. Arthritic spurring medial and lateralcompartment with mild medial compartment narrowing. Prior ACL repair. Nosubarticular defects identified. Dictated by Jairo Valenzuela MD @ 03/19/2023 7:22:08 AM (Electronically Signed) Marcello Valenzuela MD GENERAL IMAGING * XR KNEE 3 VIEWS LEFT (03/15/2023 3:23 PM MULTICULTURAL SERVICES LIBRARIAN) Anatomical Region Laterality Modality KNEES, KNEE L Computed Radiogr aphy 03/15/2023 3:33 PM MULTICULTURAL SERVICES LIBRARIAN Narrative 03/15/2023 3:33 PM MULTICULTURAL SERVICES LIBRARIAN For Patients: ??As a result of the Cures Act, medical imaging exams and procedure reports are released immediately into your electronic medical record. ??You may view this report before your referring provider. ??If you have questions, please contact your health care provider. Indication: Acute pain of the left knee Technique: Three views Comparison: Left knee 01/25/2020 Findings/Impression: Bones: No evidence of fracture. Joint spaces: Status post anterior cruciate ligament repair with screw in the proximal tibia. Small marginal osteophytes at the medial and lateral compartments with moderate knee effusion. Soft tissues: Unremarkable. Dictated by Fabricio Newsome MD @ 03/15/2023 3:33:42 PM (Electronically Signed) Procedure Note Fabricio Newsome MD - 03/15/2023 For Patients: As a result of the Cures Act, medical imagingexams and procedure reports are released immediately into your electronicmedical record. You may view this report before your referring provider.If you have questions, please contact your health care provider. Indication: Acute pain of the left knee Technique: Three views Comparison: Left knee 01/25/2020 Findings/Impression: Bones: No evidence of fracture. Joint spaces: Status post anterior cruciate ligament repair with screw inthe proximal tibia. Small marginal osteophytes at the medial and lateralcompartments with moderate knee effusion. Soft tissues: Unremarkable. Dictated by Fabricio Newsome MD @ 03/15/2023 3:33:42 PM (Electronically Signed) [facility] from Last 3 Months Advance Directives Latest Code Status on File Code Status Date Activated Date Inactivated Comments Full Code 03/15/2020 6:34 AM 03/15/2020 6:06 PM Question Answer Comments Code Status Discussion: Discussed Care Teams Websphere Commerce Developer Relationship Specialty Start Date [place] [address] PCP - General Family Practice 03/01/20 Raine Vogt CNM [address] [place] [address] Referring Provider Certified Nurse Metal Window Frame Maker 09/21/21
--- NOTE | 2023-06-03 08:45 | CRLHL7_ITS ---
For Patients: As a result of the Cures Act, medical imaging exams and procedure reports are released immediately into your electronic medical record. You may view this report before your referring provider. If you have questions, please contact your health care provider. INDICATION: First trimester scan, establish dates. COMPARISON: None. TECHNIQUE: Real-time ayala-scale imaging of the pelvis was performed. FINDINGS: Sonographic imaging demonstrates a single living intrauterine gestation. The embryo demonstrates a regular cardiac rate measuring 166 beats per minute. The embryo`s crown-rump length measurement of 1.4 cm corresponds to a gestational age of 7 weeks 4 days with a sonographic due date of 01/22/2022. There is a normal-appearing yolk sac. There are no gross abnormalities noted within the embryo at this early state of development. The gestational sac has a normal appearance. There is a 0.4 x 1.3 x 1.7 cm perigestational hemorrhage. The amount of fluid within the sac appears appropriate for gestational age. The cervix is closed. The myometrium appears normal. The ovaries are of normal size. There are no suspicious fluid collections noted in the cul-de-sac. IMPRESSION: Single living intrauterine with sonographic gestational age 7 weeks 4 days and sonographic due date 01/22/2022. Small inferior subchorionic hemorrhage measuring 4 x 13 x 17 millimeters. Dictated by Filemon Siddiqui MD @ 06/03/2023 11:28:52 AM (Electronically Signed)
== END 2023-06-03 08:41 | disposition home or self-care (01) ==
LOC: US 08:41
PROVIDERS: Visit Provider Advanced Practice Midwife
DX: Z34.91 Encounter for supervision of normal pregnancy, unspecified, first trimester (principal); O20.9 Hemorrhage in early pregnancy, unspecified; Z3A.01 Less than 8 weeks gestation of pregnancy
CPT/HCPCS: 76817; 84443; 86703; 86706; 86803; 86850; 86900; 86901; 87086; 87340

== ENCOUNTER 2023-06-03 10:04 | Outpatient (CLI) | payer BC, SELFPAY ==
--- OUTSIDE RECORDS SUMMARY | 2023-06-03 10:08 | XMS_ITS | Clinical Summary ---
Author Name Unknown Organization [facility] Address [place], [place] [address] Care Team Providers Care Digital Media Designer Name Role Phone Pierre Dyson MD Primary Care Provider Raine Vogt CNM Unavailable [phone] Allergies Active Allergy Reactions Criticality Noted Date [...] cervical 02/02 Overview: 01/30/2022: NIL/HPV 18+ 03/05/2022: [place]amm[place] and ECC - NED 1 04/10/2023: ASCUS/HPV 18+ Plan: Colposcopy complicated by abdominal mass Comments Yes Encounters Date Type Department Care Team Description 05/10/2023 9:00 AM JAIL OFFICER Office Visit [facility] [address] [address] Marcello Valenzuela MD Follow Up (left knee MRI results) 05/09/2023 Travel 05/08/2023 11:00 AM JAIL OFFICER - 05/08/2023 11:59 PM JAIL OFFICER Hospital Encounter [facility] [address] [place] [address] Marcello Valenzuela MD Acute pain of left knee 05/08/2023 Travel 04/25/2023 Telephone [facility] [address] [place] [address] Pierre Dyson MD Pap Plan (Colposcopy ) 04/10/2023 1:20 PM JAIL OFFICER Office Visit [facility] [address] [place] [address] Pierre Dyson MD Physical; Immunization/Injecti on (COVID-19 vaccine) 04/10/2023 Travel 03/18/2023 4:20 PM JAIL OFFICER Ancillary Procedure [facility] [address] [place] [address] 03/18/2023 4:00 PM JAIL OFFICER Office Visit [facility] [address] [place] [address] Marcello Valenzuela MD [facility] (Left Knee- 03/14/2023) 03/18/2023 Travel 03/15/2023 3:10 PM JAIL OFFICER Ancillary Procedure [address] [address] 03/15/2023 2:20 PM JAIL OFFICER Office Visit [facility] [address] [place] [address] [place] [address] Jose Hirsch PA Knee Injury (L knee injury; WC 03/14/23 s/p turning quickly to tend to child she felt her knee lock up, immediate pain and could not bear weight on L leg. ) 03/15/2023 12:30 PM JAIL OFFICER Office Visit [facility] [address] [place] [address] [place] [address] No Show 03/15/2023 Travel from Last 3 Months Immunizations Name Administration Dates Next Due COVID-19 Vaccine Spikevax (M oderna 50mcg/0.5mL) 12YO+ 9912-0529 Formula PF 04/10/2023 COVID-19 vaccine (getbetter!Bio NTech 30mcg/0.3mL) 12YO+ BIVALENT PF, MDV 01/30/2022 [...] Sex Assigned at Female 04/30/2020 1:15 PM JAIL OFFICER Gender Identity Female 04/30/2020 1:15 PM JAIL OFFICER Sexual Orientation Choose not to disclose 2020 9:29 PM JAIL OFFICER Obstetrics History Para Term AB IAB SAB [...] Comments Blood Pressure 104/80 04/10/2023 1:32 PM JAIL OFFICER Pulse 84 04/10/2023 1:32 PM JAIL OFFICER Temperature 36.7 ??C (98 ??F) 03/15/2023 2:31 PM JAIL OFFICER Respiratory Rate 18 03/15/2023 2:31 PM JAIL OFFICER Oxygen Saturation 98% 03/15/2023 2:31 PM JAIL OFFICER Inhaled Oxygen Concentration - - Weight 74.4 kg (164 lb) 04/10/2023 1:32 PM JAIL OFFICER Height 160 cm (5' 3) 04/10/2023 1:32 PM JAIL OFFICER Body Mass Index 29.05 04/10/2023 1:32 PM JAIL OFFICER Plan of Treatment Upcoming Encounters Date Type Department Care Team (Late st Contact Info) Description 06/14/2023 11:15 AM JAIL OFFICER OB Encounter [facility] [address] [place] [address] Jeanna Hernandez MD [address] [place] [address] Health Maintenance Due Date Last Done Comments [...] 04/10/20 23 Medical Devices Implanted Type Area Biomedical Service Engineer Device Identifier Shelf Expiration Date Model / Serial / Lot Sys Meniscal Cvd 360 Fast-Fix - [id number] Implanted:Qty: 2 on 03/15/2020 by Marcello Valenzuela MD at [facility] Left: Knee [employer] 11/09/2022 [id number] / / [id number] Sys Meniscal Rev Cvd 360 Fast-Fix - [id number] Implanted:Qty: 1 on 03/15/2020 by Marcello Valenzuela MD at [facility] Left: Knee [employer] 05/27/2020 [id number]# / / [id number] Sys Meniscal Cvd 360 Fast-Fix - [id number] Implanted:Qty: 3 on 03/15/2020 by Marcello Valenzuela MD at [facility] Left: Knee [employer] 10/26/2022 [id number] / / [id number] Description:From vendors sto ck Procedures Procedure Name Priority Date/Time Associated Diagnosis Comments MR KNEE LEFT WO Routine 05/08/2023 11:33 AM JAIL OFFICER Acute pain of left knee [facility] THIN PREP PAP SCREEN IMAGED Routine 04/10/2023 5:30 PM JAIL OFFICER Pap smear for cervical cancer screening HPV THIN PREP Routine 04/10/2023 5:30 PM JAIL OFFICER Pap smear for cervical cancer screening TSH Routine 04/10/2023 2:24 PM JAIL OFFICER Hypothyroidism (acquired) XR KNEE 1 VIEW LEFT Routine 03/18/2023 3 :59 PM JAIL OFFICER Acute pain of left knee XR KNEE 3 VIEWS LEFT STAT 03/15/2023 3:23 PM JAIL OFFICER Acute pain of left knee from Last 3 Months Results * MR KNEE LEFT WO CONTRAST (05/08/2023 11:33 AM JAIL OFFICER) Anatomical Region Laterality Modality KNEE L Magnetic Resonan ce 05/09/2023 12:5 5 PM JAIL OFFICER Impressions 05/09/2023 12:55 PM JAIL OFFICER 1. Interval partial medial meniscectomy without recurrent [...] PM (Electronically Signed) Narrative 05/09/2023 12:55 PM JAIL OFFICER For Patients: ??As a result of the [...] Signed) Marcello Valenzuela MD MR * (ABNORMAL) [facility] THIN PREP PAP SCREEN IMAGED (04/10/2023 5:30 PM JAIL OFFICER) Case Report Gynecologic Cytology Report ? Case: [id number] ? Authorizing Provider: ??Pierre Dyson MD Collected: ? 04/10/2023 1730 ? Ordering Location: ? [facility] ?Received: ?04/10/2023 1730 ? Clinic ? First Screen: ?Shanthi Bustamante ? Rescreen: ?Chappell, Swati ? Pathologist: ? Chely Jameson ? MD Arlette ? Specimen: ?[facility] ThinPrep Vial Screening, Cervical ? 04/24/2023 3:13 PM JAIL OFFICER [facility] INTERPRETATION/ RESULT ATYPICAL SQUAMOUS CELLS OF UNDETERMINED SIGNIFICANCE (ASCUS)(A) (none) 04/24/2023 3:13 PM JAIL OFFICER [facility] R NON-NEOPLASTIC FINDING(S) Parakeratosis 04/24/2023 3:13 PM JAIL OFFICER [facility] [employer] [facility] ENTRAL LABORATORY SPECIMEN ADEQUACY Satisfactory for evaluation Endocervical component present 04/24/2023 3:13 PM JAIL OFFICER [facility] ENTRAL LABORATORY HPV REQUEST HPV and PAP 04/24/2023 3:13 PM JAIL OFFICER [facility] EN[facility]AL LAB[facility] Date of LMP 03/29/2023 04/24/2023 3:13 PM JAIL OFFICER [facility] Last Pap Date 01/30/22 04/24/2023 3:13 PM JAIL OFFICER [facility] EN[facility] Last Pap Result NIL 3:13 PM JAIL OFFICER [facility] EN[facility] LAB[facility] Abnormal Pap or Mammoth Bx in last 5 years Yes 04/24/2023 3:13 PM JAIL OFFICER [facility] EN[facility] LAB[facility]ORY Menstrual Status Regular Periods 04/24/2023 3:13 PM JAIL OFFICER [facility] LAB[facility] Mammoth Bx Done Today No 04/24/2023 3:13 PM JAIL OFFICER [facility] Additional Information None given 04/24/2023 3:13 PM JAIL OFFICER [facility] EN[facility]AL LABOR[facility]ORY Comment: Cytology is screened at [facility] - [address] [address] and [facility] - [address] [place] [address] and [facility] - [address] [place] [address] Interpreted at [facility] - [address], [place] [address] Automated Review Successful 04/24/2023 3:13 PM JAIL OFFICER [facility] Comment:Specimen processed s uccessfully by automated cutter operator tile device, ThinPrep Imaging System, [employer] ANCILLARY TESTING [facility] HPV Ordered, Please see separate report 04/24/2023 3:13 PM JAIL OFFICER [facility] Note The pap test is a screening technique, not a diagnostic procedure. It is used primarily to screen for squamous cancers and precursor lesions. Published studies have shown that it is subject to both false negative and false positive results. The pap test should not be used as the sole means to diagnose or exclude pre-malignant and malignant lesions. 04/24/2023 3:13 PM JAIL OFFICER [facility] ENTRAL LABORATORY Other (Cervical) Non-Blood / Unknown 04/10/2023 5:30 PM JAIL OFFICER 04/10/2023 5:30 PM JAIL OFFICER Pierre Dyson MD PATHOLOGY/CYTOL OGY Performing Organization Address [facility]/ZIP Co de Phone Number [facility] [address] [place] [address], * (ABNORMAL) HPV HIGH RISK (04/10/2023 5:30 PM JAIL OFFICER) TYPE 16 Negative Negative 04/15/2023 11:31 AM JAIL OFFICER [facility] TR[facility] TYPE 18 Positive(A) Negative 04/15/2023 11:31 AM JAIL OFFICER [facility] OTHER HIGH RISK TYPES Negative Negative 04/15/2023 11:31 AM JAIL OFFICER [facility] TRA [facility] Other (Cervical) Non-Blood / Unknown 04/10/2023 5:30 PM JAIL OFFICER 04/11/2023 2:46 PM JAIL OFFICER Narrative [facility] - 04/15/2023 11:31 AM JAIL OFFICER Specimen is positive for HPV type 18 DNA. ??HPV types 16, 31, 33, 35, 39, 45, 51, 52, 56, 58, 59, 66 and 68 DNA were undetectable or below the pre-set threshold. Methodology: Mee Omar 4800 HPV Test Pierre Dyson MD MICROBIOLOGY Performing Organization Address City/[facility]/ZIP Co de Phone Number [facility] [address] [place] [address], * TSH (04/10/2023 2:24 PM JAIL OFFICER) TSH 0.44 0.27 - 4.20 uIU/mL 04/10/2023 3:06 PM JAIL OFFICER [facility] Blood BLOOD SPECIMEN / Unknown Venipuncture / Unknown 04/10/2023 2:24 PM JAIL OFFICER 04/10/2023 2:25 PM JAIL OFFICER Narrative [facility] - 04/10/2023 3:06 PM JAIL OFFICER In Adults, TSH values between 5.00 and 10.00 uIU/ml do not necessarily indicate the presence of Hypothyroidism. Correlation with clinical findings such as presence of goiter and/or Thyroperoxidase (TPO) Antibody may be helpful. For more information please refer to CLEMENTE 2004; 291: 228-238. Pierre Dyson MD CHEMISTRY [facility] [address] [place] [address] * XR KNEE 1 VIEW LEFT (03/18/2023 3:59 PM JAIL OFFICER) Anatomical Region Laterality Modality KNEE L Computed Radiogr aphy 03/19/2023 7:22 AM JAIL OFFICER Narrative 03/19/2023 7:22 AM JAIL OFFICER For Patients: ??As a result of the [...] KNEE 3 VIEWS LEFT (03/15/2023 3:23 PM JAIL OFFICER) Anatomical Region Laterality Modality KNEES, KNEE L Computed Radiogr aphy 03/15/2023 3:33 PM JAIL OFFICER Narrative 03/15/2023 3:33 PM JAIL OFFICER For Patients: ??As a result of the [...] Comments Code Status Discussion: Discussed Care Teams Digital Media Designer Relationship Specialty Start Date [place] [address] PCP - General Family Practice 03/01/20 Raine Vogt CNM [address] [place] [address] Referring Provider Certified Nurse End Worker 09/21/21
== END 2023-06-03 10:05 | disposition home or self-care (01) ==
PROVIDERS: PCP Advanced Practice Midwife; Visit Provider Advanced Practice Midwife
DX: Z34.81 Encounter for supervision of other normal pregnancy, first trimester (principal)
CPT/HCPCS: 84443; 86592; 86703; 86704; 86706; 86762; 86787; 86803; 86850; 86900; 86901; 87086; 87340

== ENCOUNTER 2023-07-22 09:39 | Outpatient (CLI) | payer BC, SELFPAY | END 2023-07-22 09:40 | disposition home or self-care (01) | LOC: NFLDREF 09:40 | PROVIDERS: Visit Provider Advanced Practice Midwife | DX: Z34.92 Encounter for supervision of normal pregnancy, unspecified, second trimester (principal); Z3A.16 16 weeks gestation of pregnancy | CPT/HCPCS: 81511 ==

== ENCOUNTER 2023-12-31 12:56 | Outpatient (CLI) | payer BC, SELFPAY ==
--- OUTSIDE RECORDS SUMMARY | 2023-12-31 12:58 | XMS_ITS | Clinical Summary ---
Author Organization [facility] Address [place], [place] [address] Care Team Providers Care Hand Stoner Name Role Phone Pierre Dyson MD Primary Care Provider Raine Vogt CNM Unavailable [phone] Allergies Active Allergy Reactions Criticality Noted Date Comments Cats (Fur, Dander, Saliva) Throat Swelling/Closing High 01/13/2020 Cefaclor Hives 01/13/2020 Medications Medication Sig Dispensed Refills Start Date End Date Status fluticasone (50 mcg per actuation) nasal solution (FLONASE) Inhale 2 Sprays into both nostrils once daily. 1 Bottle 01/13/2020 Active multivitamin () 27 mg iron- 800 mcg folicIndications:Enco unter for supervision of other normal in first trimester Take 1 Tablet by mouth once daily with a meal. 90 Tablet 3 05/25/2021 Active diclofenac topical (VOLTAREN) 1 % gelIndications:Acute pain of left knee,Knee strain, left, initial encounter Apply 4 g topically to affected area(s) four times daily. 50 g 03/15/2023 Active albuterol HFA (PRO-AIR; VENTOLIN; PROVENTIL) [...] Puff by mouth once daily. 120 Each 12 04/10/2023 Active levothyroxine (SYNTHROID) 75 mcg tabletIndications:Hyp othyroidism (acquired) Take 1 Tablet (75 mcg) by mouth before breakfast. 30 Tablet 1 10/17/2023 Active Active Problems Problem Noted Date Diagnosed Date Primary osteoarthritis of left knee 05/10/2023 Chondromalacia of left knee 05/10/2023 Bodies, loose, joint, knee, left 05/10/2023 Bilateral sensorineural hearing loss 04/02/2022 ASCUS with positive high risk HPV cervical 02/02 Overview: 01/30/2022: NIL/HPV 18+ 03/05/2022: [place] and ECC - NED 1 04/10/2023: ASCUS/HPV 18+ Plan: Colposcopy complicated by abdominal mass Encounters Date Type Department Care Team Description 12/18/2023 1:15 PM CDT Orders Only [facility] [address] [place] [address] Lab, [place] [facility] 12/18/2023 Travel 12/16/2023 Travel 10/16/2023 Refill [facility] [address] [place] [address] Pierre Dyson MD Refill Request (Levothyroxine) from Last 3 Months Immunizations Name Administration Dates Next Due COVID-19 Vaccine Spikevax (M oderna 50mcg/0.5mL) 12YO+ 6427-1252 Formula PF 04/10/2023 COVID-19 vaccine (ExtendEvent-Bio NTech 30mcg/0.3mL) 12YO+ BIVALENT PF, MDV 01/30/2022 [...] of Communication with Friends and Fami ly Not on file 07/29/2023 Financial Resource Strain Answer Date R ecorded [...] Housing in the Last Year 1 07/24/2022 Sex and Gender Information Value Date Recorded Sex Assigned at Female 04/30/2020 1:15 PM ELEVATOR BUILDER Gender Identity Female 04/30/2020 1:15 PM ELEVATOR BUILDER Sexual Orientation Choose not to disclose 2020 9:29 PM ELEVATOR BUILDER Obstetrics History Para Term AB IAB SAB Ectopic Multiple Livin g Live Births 4 2 2 Date Outcome GA Total Labor Labor/2nd/3rd Weight Sex Type Anes PTL Naomie A1 A5 Name Clin Term F CS-Clas sical Term M Vag Summary Episode Dates Number of Fetuses Estimated Date of Delivery 05/10/2023 - Present (12/31/2023) Unknown Dating Summary Based On SYLVAIN GA Diff Last Menstrual Period on 03/29/2023 (Exact Date) 01/03/2024 Vitals Date GA Fund Present FHR Mvmt BP Weight Edema Alb Glu Ket Dil/ Eff/Sta 09/18/2023 Inpatient data n ot displayed here. See encounter summary. Last Filed Vital Signs Vital Sign Reading Time Taken Comments Blood Pressure 122/90 09/03/2023 1:05 PM CDT Pulse 80 09/03/2023 1:04 PM CDT Temperature 36.7 ??C (98 ??F) 09/03/2023 1:04 PM CDT Respiratory Rate 18 03/15/2023 2:31 PM ELEVATOR BUILDER Oxygen Saturation 98% 03/15/2023 2:31 PM ELEVATOR BUILDER Inhaled Oxygen Concentration - - Weight 70.8 kg (156 lb) 09/03/2023 1:04 PM CDT Height 160 cm (5' 3) 09/03/2023 1:04 PM CDT Body Mass Index 27.63 09/03/2023 1:04 PM CDT Plan of Treatment Health Maintenance Due Date Last Done Comments HIV for age 15-65 2004 Influenza for age 9-49 12/29/2023 , 01/30/2022, 06/09/2021, Additional history exists Depression screening for age 12+ 04/10/2024 04/10/2023, 01/30/2022, 01/09/2022, Additional history exists Pap test for age 21-65 04/10/2024 , 04/10/2023, 03/05/2022, Additional history exists BMI (ht and wt on same day) for age 18+ 09/02/2024 09/03/2023, 04/10/2023, 09/06/2022, Additional history exists Tetanus booster 11/10/2031 11/09/2021, 04/29/2018 Tdap Completed 11/09/2021, 04/29/2018 Hepatitis C screening for age 18-79 Completed 01/30/2022 COVID-19 vaccine series Completed 04/10/20 23, 01/30/2022, 04/19/2021, Additional history exists Pneumococcal series for age 6-64 Aged Out 04/10/2023 No longer eligible based on patient's age to complete this topic Medical Devices Implanted Type Area Consulting Property Manager Device Identifier Shelf Expiration Date Model / Serial / Lot Sys Meniscal Cvd 360 Fast-Fix - [id number] Implanted:Qty: 2 on 03/15/2020 by Marcello Valenzuela MD at [facility] Left: Knee [employer] 11/09/2022 [id number] / / [id number] Sys Meniscal Rev Cvd 360 Fast-Fix - [id number] Implanted:Qty: 1 on 03/15/2020 by Marcello Valenzuela MD at [facility] Left: Knee [employer] 05/27/2020 [id number] / / [id number] Sys Meniscal Cvd 360 Fast-Fix - [id number] Implanted:Qty: 3 on 03/15/2020 by Marcello Valenzuela MD at [facility] Left: Knee [employer] 10/26/2022 [id number] / / [id number] Description:From vendors sto ck Procedures Procedure Name Priority Date/Time Associated Diagnosis Comments TSH Routine 12/18/2023 1:05 PM CDT Hypothyroidism (acquired) HPV THIN PREP Routine 04/10/2023 5:30 PM ELEVATOR BUILDER Pap smear for cervical cancer screening ANTI HCV Routine 01/30/2022 2:51 PM CDT Need for hepatitis C screening test from Last 3 Months or Most Recently Relevant to Health Maintenance Results * TSH (12/18/2023 1:05 PM CDT) TSH 0.32 0.27 - 4.20 uIU/mL 12/19/2023 12:16 AM CDT [facility] Blood BLOOD SPECIMEN / Unknown Venipuncture / Unknown 12/18/2023 1:05 PM CDT 12/18/2023 1:06 PM CDT Narrative [facility]-CEN[facility]AL LAB[facility] - 12/19/2023 12:16 AM CDT In Adults, TSH values between 5.00 and 10.00 uIU/ml do not necessarily indicate the presence of Hypothyroidism. Correlation with clinical findings such as presence of goiter and/or Thyroperoxidase (TPO) Antibody may be helpful. For more information please refer to CLEMENTE 2004; 291: 228-238. Pierre Dyson MD CHEMISTRY Performing Organization Address City/[facility]/ZIP Co de Phone Number [facility] Is That [facility] [address] [place] [address], * (ABNORMAL) HPV HIGH RISK (04/10/2023 5:30 PM ELEVATOR BUILDER) TYPE 16 Negative Negative 04/15/2023 11:31 AM ELEVATOR BUILDER [facility] TYPE 18 Positive(A) Negative 04/15/2023 11:31 AM ELEVATOR BUILDER [facility] TRAL LABORATORY OTHER HIGH RISK TYPES Negative Negative 04/15/2023 11:31 AM ELEVATOR BUILDER [facility] Other (Cervical) Non-Blood / Unknown 04/10/2023 5:30 PM ELEVATOR BUILDER 04/11/2023 2:46 PM ELEVATOR BUILDER Narrative [facility] - 04/15/2023 11:31 AM ELEVATOR BUILDER Specimen is positive for HPV type 18 DNA. ??HPV types 16, 31, 33, 35, 39, 45, 51, 52, 56, 58, 59, 66 and 68 DNA were undetectable or below the pre-set threshold. Methodology: Mee Omar 4800 HPV Test Pierre Dyson MD MICROBIOLOGY Performing Organization Address [facility] Co de Phone Number [facility] Is That [facility] [address] [place] [address] * ANTI HCV (01/30/2022 2:51 PM CDT) HEPATITIS C ANTIBODY Non-React edgar Non-React edgar 02/01/2022 12:31 AM CDT [facility] Comment:Antibodies to HCV no t detected; does not exclude the possibility of exposure to HCV. Blood BLOOD SPECIMEN / Unknown Venipuncture / Unknown 01/30/2022 2:51 PM CDT 01/30/2022 2:54 PM CDT Pierre Dyson MD SEND OUTS Performing Organization Address City/[facility]/ZIP Co de Phone Number [facility] Is That [facility] [address] [place] [address], from Last 3 Months or Most Recently Relevant to Health Maintenance Advance Directives * Full Code (Latest Code Status on File) Date Activated Date Inactivated Comments 03/15/2020 6:34 AM 03/15/2020 6:06 PM Question Answer Comments Code Status Discussion: Discussed Care Teams Hand Stoner Relationship Specialty Start Date End Date Pierre Dyson MD [address] [place] [id number] PCP - General Family Practice 03/01/20 Raine Vogt CNM [address] [place] [address] Referring Provider Certified Nurse Account Manager 09/21/21
--- NOTE | 2023-12-31 13:00 | CRLHL7_ITS ---
For Patients: As a result of the Cures Act, medical imaging exams and procedure reports are released immediately into your electronic medical record. You may view this report before your referring provider. If you have questions, please contact your health care provider. INDICATION: First trimester scan, establish dates. TECHNIQUE: Real-time ayala-scale imaging of the pelvis was performed. FINDINGS: Sonographic imaging demonstrates a single living intrauterine gestation. The embryo demonstrates a regular cardiac rate measuring 171 beats per minute. The embryo`s crown-rump length measurement of 2 cm corresponds to a gestational age of 8 weeks 4 days with a sonographic due date of 08/07/2024. There is a normal-appearing yolk sac. IMPRESSION: Normal first trimester OB ultrasound exam. Gestational age calculated at 8 weeks 4 days with a sonographic due date of 08/07/2024. Dictated by Yeimi Mcwilliams MD @ 12/31/2023 3:35:26 PM (Electronically Signed)
== END 2023-12-31 12:57 | disposition home or self-care (01) ==
LOC: US 12:56
PROVIDERS: Visit Provider Physician Assistant
DX: Z34.91 Encounter for supervision of normal pregnancy, unspecified, first trimester (principal); Z3A.08 8 weeks gestation of pregnancy
CPT/HCPCS: 76817; 84443; 86592; 86703; 86704; 86706; 86762; 86787; 86803; 86850; 86900; 86901; 87086; 87340; 87491; 87591

== ENCOUNTER 2023-12-31 14:11 | Outpatient (CLI) | payer BC, SELFPAY ==
--- OUTSIDE RECORDS SUMMARY | 2023-12-31 14:14 | XMS_ITS | Clinical Summary ---
Author Organization [facility] Address [place], [place] [address] Care Team Providers Care Recycling Or Rubbish Collector Name Role Phone Pierre Dyson MD Primary Care Provider Raine Vogt CNM Unavailable [phone] Allergies Active Allergy Reactions Criticality Noted Date [...] cervical 02/02 Overview: 01/30/2022: NIL/HPV 18+ 03/05/2022: [place] and [facility] - NED 1 04/10/2023: ASCUS/HPV 18+ Plan: Colposcopy complicated by abdominal mass Encounters Date Type Department Care Team Description 12/18/2023 1:15 PM CDT Orders Only [facility] [address] [place] [address] Lab, [place] [facility] 12/18/2023 Travel 12/16/2023 Travel 10/16/2023 Refill [facility] [address] [place] [address] Pierre Dyson MD Refill Request (Levothyroxine) from Last 3 Months Immunizations Name Administration Dates Next Due COVID-19 Vaccine Spikevax (M oderna 50mcg/0.5mL) 12YO+ 9752-0630 Formula PF 04/10/2023 COVID-19 vaccine (Roovyn-Bio NTech 30mcg/0.3mL) 12YO+ BIVALENT PF, MDV 01/30/2022 [...] Sex Assigned at Female 04/30/2020 1:15 PM BALE PILER Gender Identity Female 04/30/2020 1:15 PM BALE PILER Sexual Orientation Choose not to disclose 2020 9:29 PM BALE PILER Obstetrics History Para Term AB IAB SAB [...] CDT Respiratory Rate 18 03/15/2023 2:31 PM BALE PILER Oxygen Saturation 98% 03/15/2023 2:31 PM BALE PILER Inhaled Oxygen Concentration - - Weight 70.8 [...] this topic Medical Devices Implanted Type Area Cornice Maker Device Identifier Shelf Expiration Date Model / Serial / Lot Sys Meniscal Cvd 360 Fast-Fix - [id number] Implanted:Qty: 2 on 03/15/2020 by Marcello Valenzuela MD at [facility] Left: [employer] 11/09/2022 [id number] / / [id number] Sys Meniscal Rev Cvd 360 Fast-Fix - [id number] Implanted:Qty: 1 on 03/15/2020 by Marcello Valenzuela MD at [facility] Left: [employer] 05/27/2020 [id number] / / [id number] Sys Meniscal Cvd 360 Fast-Fix - [id number] Implanted:Qty: 3 on 03/15/2020 by Marcello Valenzuela MD at [facility] Left: [employer] 10/26/2022 [id number] / / [id number] Description:From vendors sto ck Procedures Procedure Name Priority Date/Time Associated Diagnosis Comments TSH Routine 12/18/2023 1:05 PM CDT Hypothyroidism (acquired) HPV THIN PREP Routine 04/10/2023 5:30 PM BALE PILER Pap smear for cervical cancer screening ANTI HCV Routine 01/30/2022 2:51 PM CDT Need for hepatitis C screening test from Last 3 Months or Most Recently Relevant to Health Maintenance Results * TSH (12/18/2023 1:05 PM CDT) TSH 0.32 0.27 - 4.20 uIU/mL 12/19/2023 12:16 AM CDT [facility] Blood BLOOD SPECIMEN / Unknown Venipuncture / Unknown 12/18/2023 1:05 PM CDT 12/18/2023 1:06 PM CDT Narrative [facility] - 12/19/2023 12:16 AM CDT In Adults, TSH values between 5.00 and 10.00 uIU/ml do not necessarily indicate the presence of Hypothyroidism. Correlation with clinical findings such as presence of goiter and/or Thyroperoxidase (TPO) Antibody may be helpful. For more information please refer to CLEMENTE 2004; 291: 228-238. Pierre Dyson MD CHEMISTRY Performing Organization Address City/[facility]/ZIP Co de Phone Number [facility] [address] [place] [address], * (ABNORMAL) HPV HIGH RISK (04/10/2023 5:30 PM BALE PILER) TYPE 16 Negative Negative 04/15/2023 11:31 AM [facility] P[facility]ER [facility] TYPE 18 Positive(A) Negative 04/15/2023 11:31 AM BALE PILER [facility] OTHER HIGH RISK TYPES Negative Negative 04/15/2023 11:31 AM BALE PILER [facility] Other (Cervical) Non-Blood / Unknown 04/10/2023 5:30 PM BALE PILER 04/11/2023 2:46 PM BALE PILER Narrative [facility] - 04/15/2023 11:31 AM BALE PILER Specimen is positive for HPV type 18 DNA. ??HPV types 16, 31, 33, 35, 39, 45, 51, 52, 56, 58, 59, 66 and 68 DNA were undetectable or below the pre-set threshold. Methodology: Mee Omar 4800 HPV Test Pierre Dyson MD MICROBIOLOGY Performing Organization Address [facility] Co de Phone Number [facility] [address] [place] [address] * ANTI HCV (01/30/2022 2:51 PM CDT) HEPATITIS C ANTIBODY Non-React edgar Non-React edgar 02/01/2022 12:31 AM CDT [facility] Comment:Antibodies to HCV no t detected; does not exclude the possibility of exposure to HCV. Blood BLOOD SPECIMEN / Unknown Venipuncture / Unknown 01/30/2022 2:51 PM CDT 01/30/2022 2:54 PM CDT Pierre Dyson MD SEND OUTS Performing Organization Address City/[facility]/ZIP Co de Phone Number [facility] [address] [place] [address], from Last 3 Months or Most Recently Relevant to Health Maintenance Advance Directives * Full Code (Latest Code Status on File) Date Activated Date Inactivated Comments 03/15/2020 6:34 AM 03/15/2020 6:06 PM Question Answer Comments Code Status Discussion: Discussed Care Teams Recycling Or Rubbish Collector Relationship Specialty Start Date End Date Pierre Dyson MD [address] [place] [id number] PCP - General Family Practice 03/01/20 Raine Vogt CNM [address] [place] [address] Referring Provider Certified Nurse Documentation Coordinator 09/21/21
[2023-12-31 22:29] LABS: Chlamydia DNA Amplified* NOT DETECTED (No Detected); GC DNA Amplified* NOT DETECTED (No Detected)
== END 2023-12-31 14:12 | disposition home or self-care (01) ==
PROVIDERS: Visit Provider Physician Assistant
DX: Z12.4 Encounter for screening for malignant neoplasm of cervix (principal)
CPT/HCPCS: 84443; 86592; 86703; 86704; 86706; 86762; 86787; 86803; 86850; 86900; 86901; 87086; 87340; 87491; 87591; 87624

== ENCOUNTER 2024-03-20 13:43 | Outpatient (CLI) | payer BC, SELFPAY ==
--- OUTSIDE RECORDS SUMMARY | 2024-03-22 14:21 | XMS_ITS | Clinical Summary ---
Author Organization [facility] Address [address] [place] [address]. [place] [address] Care Team Providers Care Account Planner Name Role Phone Pierre Dyson Primary Care Provider [phone] Silvana Avilez MD Unavailable [phone] Sonja Martinez MD Unavailable [phone] Allergies Active Allergy Reactions Criticality Noted Date Comments Cefaclor Hives,Anaphylaxis,Ot her (See Comments) High 01/06/2015 Unknown Itchy Medications levothyroxine (SYNTHROID/LEVOT HROID) 75 MCG tablet Take 75 mcg by mouth daily. 01/10/2024 Active predniSONE (DELTASONE) 10 MG tablet Take 10 mg by mouth daily. 02/03/2024 Active 27-1 MG TABS Take by mouth daily. Active fluticasone-moy nterol (BREO ELLIPTA) 100-25 MCG/ACT inhaler Inhale 1 puff into the lungs daily. 04/10/2023 Active Active Problems Problem Noted Date Diagnosed Date 02/04/2024 Estimated Date of Delivery Comme nts Yes 08/07/2024 Based on last me nstrual period of 11/01/2023 Encounters Date Type Department Care Team Description 03/06/2024 9:15 AM ELECTRONIC CONSOLE DISPLAY OPERATOR Office Visit [facility] [place] [address] [place] [phone] Sonja Martinez MD related condition in second trimester (Primary Dx); Cervical cerclage suture present in second trimester; History of delivery, currently ; Hypothyroidism affecting in second trimester; Bilateral hearing loss, unspecified hearing loss type 03/06/2024 8:45 AM ELECTRONIC CONSOLE DISPLAY OPERATOR Office Visit [facility] [address] [place] [phone] Marisol Dhaliwal 03/06/2024 8:41 AM ELECTRONIC CONSOLE DISPLAY OPERATOR - 03/06/2024 11:59 PM ELECTRONIC CONSOLE DISPLAY OPERATOR Hospital Encounter [facility] [address] [facility] [address] [place] [address] Sonja Martinez MD History of delivery, currently , first trimester Discharge Disposition: Home or Self Care 03/06/2024 Travel 03/01/2024 Travel 02/13/2024 MyC Medical Advice [facility] [address] [facility] [address] [place] [address] Cadence Jones 02/06/2024 Telephone [facility] Medicine [facility] [address] [place] [address] Mery Balbuena, RN Letter for School/Work 02/04/2024 9:26 AM CDT Anesthesia Event [facility] [address] [place] [address] RADHA HEMPHILL [phone] Yasmin Montgomery MD Navarro, Amanda, DO 02/04/2024 9:00 AM CDT Office Visit [facility] [address] [place] [phone] Yumiko Dhaliwalah 02/04/2024 8:30 AM CDT Hospital Encounter [facility] [address] [place] [address] RADHA HEMPHILL [phone] Raine Franklin MD 02/04/2024 8:30 AM CDT - 02/04/2024 9:30 AM CDT Surgery [facility] [address] [place] [address] RADHA HEMPHILL [phone] Raine Franklin MD CERCLAGE, CERVIX, VAGINAL APPROACH 02/04/2024 6:40 AM CDT - 02/04/2024 1:09 PM CDT Hospital Encounter [facility] [place] [phone] Raine Franklin MD Discharge Disposition: Home or Self Care 02/04/2024 6:30 AM CDT Office Visit [facility] [place] [phone] Sierra Wall 02/04/2024 Travel 02/03/2024 MyC Medical Advice [facility] [address] [place] [phone] Cadence Jones GC 01/27/2024 Telephone [facility] [address] [place] [address] Sravani Delgado, RN Appointment 01/23/2024 Telephone [facility] [address] [place] [address] Sravani Delgado, RN Appointment 01/23/2024 Transcribe Orders [facility] [address] [place] [phone] Provider, Generic External Data Family history of malignant neoplasm of breast (Primary Dx) 01/23/2024 Transcribe Orders [facility] [address] [place] [address] [address],[place] [phone] Provider, Generic External Data 01/22/2024 12:50 PM CDT Lab [facility] [address] [place] [phone] Silvana Avilez MD Encounter for screening of mother; Encounter of female for testing for genetic disease carrier status for procreative management 01/22/2024 11:45 AM CDT Office Visit [facility] [address] [place] [address] Silvana Avilez MD Cervical insufficiency during in first trimester, antepartum (Primary Dx); History of delivery, currently , first trimester 01/22/2024 10:15 AM CDT Office Visit [facility] [address] [place] [phone] Shona Oakes 01/22/2024 10:15 AM CDT Office Visit [facility] [place] [address] [place] [address] Silvana Avilez MD Stoner, Natalie E, GC Encounter for screening of mother (Primary Dx); History of delivery, currently , first trimester; Encounter of female for testing for genetic disease carrier status for procreative management; Encounter for procreative genetic counseling and testing; Deafness congenital; Family history of malignant neoplasm of breast; Family history of hypertrophic cardiomyopathy 01/22/2024 10:13 AM CDT - 01/22/2024 11:59 PM CDT Hospital Encounter [facility] Medicine [place] [address] [place] [phone] Silvana Avilez MD History of delivery, currently , first trimester Discharge Disposition: Home or Self Care 01/22/2024 Medical Correspondence [facility] [address] [place] [address] Scan, Non-Provider 01/22/2024 Orders Only [facility] [address] [place] [address] Makenzie Bowser RN History of delivery, currently , first trimester (Primary Dx) 01/22/2024 Travel 01/14/2024 PRE VISIT [facility] [place] [address] [place] [address] Ana Jenkins, CRUZ Genetic Counseling (Hx PTD and demise at 21 weeks); Ultrasound (NT-Hx PTD and demise at 21 weeks); Consult (Hx PTD and demise at 21 weeks) 01/08/2024 Orders Only [facility] [place] [address] [place] [address] Marisol Mooney RN History of delivery, currently , first trimester (Primary Dx) 01/01/2024 Transcribe Orders [facility] [place] [address] [facility] [address] [place] [address] TiffanieJuly related condition, antepartum (Primary Dx) 12/31/2023 Medical Correspondence [facility] [address] [facility] [address] [place] [address] Scan, Non-Provider [facility] PROVIDER SERVICE REQUEST- OUTPATIENT from Last 3 Months Family History Medical History Relation Comments Hypertrophic cardiomyopathy Father Relation Status Comments Father Social History Tobacco Use Types Packs/Day Years Used Date Smoking Tobacco: Never Tobacco Cessation:Counseling Given: Not Answered Alcohol Use Standard Drinks/Week Comments Never 0 (1 standard drink = 0.6 oz pur e alcohol) Food Insecurity Answer Date Recorded Within the past 12 months, d id you worry that your food would run out before you got money to buy more? No 02/04/2024 Within the past 12 months, d id the food you bought just not last and you didn t have money to get more? No 02/04/2024 Housing Stability Answer Date Recorded Do you have housing? (Induin g is defined as stable permanent housing and does not include staying ouside in a car, in a tent, in an abandoned building, in an overnight intermediate, or couch-surfing.) Yes 02/04/2024 Are you worried about losing your housing? No 02/04/2024 Financial Resource Strain Answer Date R ecorded Within the past 12 months, h ave you or your family members you live with been unable to get utilities (heat, electricity) when it was really needed? No 02/04/2024 Transportation Needs Answer Date Record ed Within the past 12 months, h as lack of transportation kept you from medical appointments, getting your medicines, non-medical meetings or appointments, work, or from getting things that you need? No 02/04/2024 Interpersonal Safety Answer Date Record ed Do you feel physically and e motionally safe where you currently live? Yes 02/04/2024 Within the past 12 months, h ave you been hit, slapped, kicked or otherwise physically hurt by someone? No 02/04/2024 Within the past 12 months, h ave you been humiliated or emotionally abused in other ways by your partner or ex-partner? No 02/04/2024 Estimated Date of Delivery Comme nts Yes 08/07/2024 Based on last me nstrual period of 11/01/2023 Sex and Gender Information Value Date Recorded Sex Assigned at Not on file Legal Sex Female 12:20 PM CDT Gender Identity Not on file Sexual Orientation Not on file Last Filed Vital Signs Vital Sign Reading Time Taken Comments Blood Pressure 122/78 02/04/2024 12:02 PM CDT Pulse 77 02/04/2024 11:15 AM CDT Temperature 36.9 C (98.4 F) 02/04/2024 12:02 PM CDT Respiratory Rate 18 02/04/2024 12:02 PM CDT Oxygen Saturation 100% 02/04/2024 11:08 AM CDT Inhaled Oxygen Concentration - - Weight 75.3 kg (166 lb) 02/04/2024 7:10 AM CDT Height 157.5 cm (5' 2) 02/04/2024 7:10 AM CDT Body Mass Index 30.36 02/04/2024 7:10 AM CDT Plan of Treatment Health Maintenance Due Date Last Done Comments ADVANCE CARE PLANNING 1989 ANNUAL REVIEW OF HM ORDERS 1989 TSH W/FREE T4 REFLEX 1989 HIV SCREENING 2004 HEPATITIS C SCREENING 09/08/2007 HEPATITIS B IMMUNIZATION (1 of 3 - 19+ 3-dose series) 2008 HPV IMMUNIZATION (2 - 3-dose series) 01/03/2016 12/06/2015 PHQ-2 (once per calendar year) 2023 COVID-19 Vaccine ( season) 2023 04/10/2023, 01/30/2022, 04/19/2021, Additional history exists INFLUENZA VACCINE (#1) 2023 , 01/30/2022, 06/09/2021, Additional history exists YEARLY PREVENTIVE VISIT 04/10/2024 04/10/20, 01/30/2022, 10/27/2018, Additional history exists PAP 12/30/2026 12/31/2023, 090 06/2023, 04/10/2023, Additional history exists DTAP/TDAP/TD IMMUNIZATION (5 - Td or Tdap) 11/10/2031 11/09/2021, 04/29/2018, 03/25/2018, Additional history exists Pneumococcal Vaccine: Pediatrics (0 to 5 Years) and At-Risk Patients (6 to 64 Years) Aged Out 04/10/2023 No longer eligible based on patient's age to complete this topic MATERNAL SCREENING DISCUSSION Completed 01/22/2024 MENINGITIS IMMUNIZATION Aged Out No l onger eligible based on patient's age to complete this topic RSV MONOCLONAL ANTIBODY Aged Out No l onger eligible based on patient's age to complete this topic RSV VACCINE (No Doses Required) Completed Procedures Procedure Name Priority Date/Time Associated Diagnosis Comments [facility] COMPREHENSIVE SINGLE Routine 03/06/2024 9:46 AM ELECTRONIC CONSOLE DISPLAY OPERATOR History of delivery, currently , first trimester ANE SPINAL BLOCK FORM Routine 02/04/2024 9:29 AM CDT CERCLAGE, CERVIX, VAGINAL APPROACH 02/04/2024 9:25 AM CDT History of delivery, currently , first trimester ABO/RH TYPE AND SCREEN STAT 4 8:07 AM CDT TYPE AND SCREEN, ADULT STAT 4 8:07 AM CDT CBC WITH PLATELETS STAT 02/04/2024 8: 07 AM CDT Lively CARRIER SCREENING FORESIGHT Routine 01/22/2024 12:57 PM CDT Encounter of female for testing for genetic disease carrier status for procreative management Lively NON-INVASIVE SCREENING PREQUEL Routine 01/22/2024 12:57 PM CDT Encounter for screening of mother [facility] NUCHAL TRANSLUCENCY Routine 01/22/2024 11:48 AM CDT History of delivery, currently , first trimester from Last 3 Months Results * [facility] US Comprehensive Single (03/06/2024 9:46 AM ELECTRONIC CONSOLE DISPLAY OPERATOR) Anatomical Region Laterality Modality Ultrasound 03/06/2024 8:46 AM ELECTRONIC CONSOLE DISPLAY OPERATOR Impressions 03/06/2024 5:55 PM ELECTRONIC CONSOLE DISPLAY OPERATOR IMPRESSION ----- 1. Schreiber at 18w 0d gestational age. 2. No anomalies commonly detected by ultrasound were identified in the detailed anatomic survey within the limits of ultrasound. 3. Growth parameters and estimated weight were consistent with gestational age predicted by assigned SYLVAIN. 4. The amniotic fluid volume appeared normal. 5. On transvaginal imaging the cervix appeared closed and stable in length. The cerclage suture is visualized. 6. There is a circumvallate placenta. Narrative 03/06/2024 5:55 PM ELECTRONIC CONSOLE DISPLAY OPERATOR Comprehensive ----- Pat. Name: KENNEDY ANTONIO Study Date: 03/06/2024 8:46am Pat. 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 (Transvaginal ultrasound examination was required to adequately complete the exam.). View: Sufficient ----- Schreiber . Number of fetuses: 1 DATING ----- Date Details Gest. age SYLVAIN LMP 11/01/2023 18 w + 0 d 08/07/2024 Previous U/S 12/31/2023 GA, GA 8 w + 4 d 18 w + 0 d 08/07/2024 U/S 03/06/2024 based upon AC, BPD, Femur, HC 18 w + 4 d 08/03/2024 Assigned dating based on the LMP, selected on 03/06/2024 18 w + 0 d 08/07/2024 GENERAL EVALUATION ----- Cardiac activity present. FHR 143 bpm. movements: present. Presentation: Variable Placenta: No Previa, > 2 cm from internal os, Anterior. Circumvallate placenta. Umbilical cord: 3 vessel cord Amniotic fluid: Amount of AF: normal. MVP 5.4 cm BIOMETRY ----- BPD 42.6 mm 18w 6d Hadlock OFD 52.6 mm 17w 5d Nicolaides HC 151.3 mm 18w 1d Hadlock Cerebellum tr 17.7 mm 17w 5d Nicolaides Nuchal fold 4.1 mm AC 129.4 mm 18w 3d 64% Hadlock Femur 27.9 mm 18w 4d Hadlock Humerus 26.3 mm 18w 2d Sharon Weight Calculation: EFW 243 g 75% Hadlock EFW (lb,oz) 0 lb 9 oz EFW by Hadlock ([id number]) Head / Face / Neck Biometry: Electro Mechanical Engineer 7.4 mm CM 3.8 mm Nasal bone 5.8 mm ANATOMY ----- The following structures appear normal: Head / Neck Cranium. Head size. Head shape. Lateral ventricles. Choroid plexus. Midline falx. Cavum septi pellucidi. Cerebellum. Cisterna magna. Parenchyma. Thalami. Vermis. Neck. Nuchal fold. Face Lips. Profile. Nose. Maxilla. Mandible. Orbits. Lens. Heart / Thorax 4-chamber view. RVOT view. LVOT view. 3-vessel view. 1-jkzmur-xpxbftk view. Situs. Aortic arch view. Bicaval view. Ductal arch view. Superior vena cava. Inferior vena cava. Cardiac position. Cardiac size. Cardiac rhythm. Right lung. Left lung. Diaphragm. Abdomen Abdom. wall. Cord insertion. Stomach. Kidneys. Bladder. Liver. Bowel. Genitals. Spine Cervical spine. Thoracic spine. Lumbar spine. Sacral spine. Extremities / Skeleton Arms. Right arm. Right hand. Left arm. Left hand. Legs. Right leg. Right foot. Left leg. Left foot. MATERNAL STRUCTURES ----- Cervix Visualized Appearance: Appears Closed Approach - Transvaginal Cervical cerclage present Right Ovary Visualized Left Ovary Visualized RECOMMENDATION ----- Thank-you for referring your patient for ultrasound assessment. I discussed the findings on today's ultrasound with the patient. I reviewed the limitations of ultrasound both in detecting aneuploidy and structural abnormalities. Ultrasound can routinely detect 80-90% of structural abnormalities. She had low risk cell free DNA for genetic screening this . She has declined amniocentesis to evaluate for fetus affected by GJB2-related DFNB1 nonsyndromic deafness. We reviewed that the placenta appears to be circumvallate. We discussed that this occurs when the chorionic membrane does not insert at the edge of the placenta but rather some inward distance from the placental margin giving it a rolled or curled appearance. We discussed that this is typically an incidental finding but may be associated with an increased risk of growth restriction. We would recommend a growth ultrasound at 28 and 34 weeks to re-evaluate growth. I presume these will be scheduled in your office. The cervix appears closed today and stable in length on transvaginal imaging, and the prior cerclage suture is visualized. Do not recommend additional US surveillance of cervical length. Recommend removal of cerclage in office at 36-37 weeks gestation. Strict cerclage precautions were reviewed. Return to primary provider for continued care. If you have questions regarding today's evaluation or if we can be of further service, please contact the Maternal[facility] Medicine Center. I spent a total of 15 minutes on the date of this encounter including preparing to see the patient (reviewing medical records/tests), counseling and discussing the plan of care, documenting the visit in the electronic medical record, and communicating with other health intensive care nurse and/or care coordination. Procedure Note Sonja Martinez MD - 03/06/2024 Comprehensive ----- Pat. Name: KENNEDY ANTONIO Study Date: 03/06/2024 8:46am Pat. 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 View: Sufficient ----- Schreiber . Number of fetuses: 1 DATING ----- DateDetailsGest. age SYLVAIN LMP w + 0 d 08/07/2024 Previous U/S 12/31/2023 GA, GA8 w + 4 d18 w + 0 d 08/07/2024 U/S 03/06/2024ased upon AC, BPD, Femur, HC18 w + 4 d 08/03/2024 Assigned dating based on the LMP, selected on w + 0 d 08/07/2024 GENERAL EVALUATION ----- Cardiac activity present. FHR 143 bpm. movements: present.Presentation: Variable Placenta: No Previa, > 2 cm from internal os, Anterior. Circumvallateplacenta. Umbilical cord: 3 vessel cord Amniotic fluid: Amount of AF: normal. MVP 5.4 cm BIOMETRY ----- BPD 42.6mm 18w 6dHadlock OFD 52.6mm 17w 5dNicolaides HC 151.3mm 18w 1dHadlock Cerebellum tr 17.7mm 17w 5dNicolaides Nuchal fold 4.1mm AC 129.4mm 18w 3d 64%Hadlock Femur 27.9mm 18w 4dHadlock Humerus 26.3mm 18w 2dJeanty Weight Calculation: EFW 243g 75%Hadlock EFW (lb,oz) 0 lb 9oz EFW by Hadlock([id number]) Head / Face / Neck Biometry: Electro Mechanical Engineer 7.4mm CM 3.8mm Nasal bone 5.8mm ANATOMY ----- The following structures appear normal: Head / Neck Cranium. Head size. Head shape.Lateral ventricles. Choroid plexus. Midline falx. Cavum septi pellucidi.Cerebellum. Cisterna magna. Parenchyma. Thalami. Vermis. Neck. Nuchal fold. Face Lips. Profile. Nose. Maxilla.Mandible. Orbits. Lens. Heart / Thorax 4-chamber view. RVOT view. LVOT view.3-vessel view. 7-ffhhru-fiatmmf view. Situs. Aortic arch view. Bicavalview. Ductal arch view. Superior vena cava. Inferior vena cava.Cardiac position. Cardiac size. Cardiac rhythm. Right lung. Left lung.Diaphragm. Abdomen Abdom. wall. Cord insertion. Stomach.Kidneys. Bladder. Liver. Bowel. Genitals. Spine Cervical spine. Thoracic spine.Lumbar spine. Sacral spine. Extremities / Skeleton Arms. Right arm. Right hand. Left arm.Left hand. Legs. Right leg. Right foot. Left leg. Left foot. MATERNAL STRUCTURES ----- Cervix Visualized Appearance: Appears Closed Approach - Transvaginal Cervical cerclage present Right Ovary Visualized Left Ovary Visualized RECOMMENDATION ----- Thank-you for referring your patient for ultrasound assessment. I discussed the findings on today's ultrasound with the patient. Ireviewed the limitations of ultrasound both in detecting aneuploidy andstructural abnormalities. Ultrasound can routinely detect 80-90% of structural abnormalities. She had low riskcell free DNA for genetic screening this . She has declinedamniocentesis to evaluate for fetus affected by GJB2-related DFNB1 nonsyndromic deafness. We reviewed that the placenta appears to be circumvallate. We discussedthat this occurs when the chorionic membrane does not insert at the edgeof the placenta but rather some inward distance from the placental margin giving it a rolledor curled appearance. We discussed that this is typically an incidentalfinding but may be associated with an increased risk of growth restriction. We wouldrecommend a growth ultrasound at 28 and 34 weeks to re-evaluate fetalgrowth. I presume these will be scheduled in your office. The cervix appears closed today and stable in length on transvaginalimaging, and the prior cerclage suture is visualized. Do not recommendadditional US surveillance of cervical length. Recommend removal of cerclage in office at 36-37 weeksgestation. Strict cerclage precautions were reviewed. Return to primary provider for continued care. If you have questions regarding today's evaluation or if we can be offurther service, please contact the [facility] Center. I spent a total of 15 minutes on the date of this encounter includingpreparing to see the patient (reviewing medical records/tests), counselingand discussing the plan of care, documenting the visit in the electronic medical record, andcommunicating with other health intensive care nurse and/or carecoordination. IMPRESSION ----- 1. Schreiber at 18w 0d gestational age. 2. No anomalies commonly detected by ultrasound were identified inthe detailed anatomic survey within the limits of prenatalultrasound. 3. Growth parameters and estimated weight were consistent withgestational age predicted by assigned SYLVAIN. 4. The amniotic fluid volume appeared normal. 5. On transvaginal imaging the cervix appeared closed and stable inlength. The cerclage suture is visualized. 6. There is a circumvallate placenta. us Raine Franklin MD [facility] US ORDERABLES Edit ed Result - Final * Spinal Block (02/04/2024 9:29 AM CDT) Narrative Redd RiggsandaDO - 02/04/2024 9:29 AM CDT Sandhya Riggs DO 02/04/2024 12:09 PM Intrathecal injection Procedure Note Pre-Procedure Staff - Anesthesiologist: Yasmin Montgomery MD Resident/Fellow: Sandhya Riggs DO Performed By: resident and with residents Procedure performed by resident/fellow/HAND FUNNEL COATER in presence of a teaching physician. Location: OB Procedure Start/Stop Times: 02/04/2024 9:29 AM and 02/04/2024 9:33 AM Pre-Anesthestic Checklist: patient identified, IV checked, risks and benefits discussed, informed consent, monitors and equipment checked, pre-op evaluation, at physician/surgeon's request and post-op pain management Timeout: Correct Patient: Yes Correct Procedure: Yes Correct Site: Yes Correct Position: Yes Procedure Documentation Procedure: intrathecal injection Patient Position: sitting Skin prep: Chloraprep Insertion Site: L3-4. (midline approach). Needle Gauge: 25. Needle Length (Inches): 3.5 Spinal Needle Type: Pencan Introducer used Introducer: 20 G # of attempts: 2 and # of redirects: 2 Assessment/Narrative Paresthesias: No. Sensory Level: T10 CSF fluid: clear. Opening pressure was cmH2O while Sitting. Medication(s) Administered 1.6 mL BUPivacaine 0.75% in dextrose 8.25% (intrathecal) 0.75-8.25 % 2% Chloroprocaine PF (Intrathecal) - Intrathecal 60 mg - 02/04/2024 9:33:00 AM Medication Administration Time: 02/04/2024 9:29 AM FOR [facility] ONLY: Pain Team Contact information: please page the Pain Team Via [employer]. Search Pain. During daytime hours, please page the attending first. At night please page the resident first. Yasmin Montgomery MD [place] ANESTHESIA Edited Result - Final * Adult Type and Screen (02/04/2024 8:07 AM CDT) ABO/RH(D) B POS 02/04/2024 8:05 AM CDT UR BLOOD BANK Antibody Screen Negative Negative 02/04/2024 8:05 AM CDT UR BLOOD BANK SPECIMEN EXPIRATION DATE [id number] 02/04/2024 8:05 AM CDT UR BLOOD BANK Blood BLOOD SPECIMEN / Unknown Venipuncture / Unknown 02/04/2024 8:07 AM CDT 02/04/2024 8:20 AM CDT us Raine Franklin MD LAB - BLOOD BANK TEST ORDE R Final Result UR BLOOD BANK [facility] Blood Components Lab [address] [facility], [address] [place] [address] * (ABNORMAL) CBC with platelets (02/04/2024 8:07 AM CDT) WBC Count 8.2 4.0 - 11.0 10e3/uL 02/04/2024 8:23 AM CDT UR LABORATORY RBC Count 3.73(L) 3.80 - 5.20 10e6/uL 02/04/2024 8:23 AM CDT UR LABORATORY Hemoglobin 11.6(L) 11.7 - 15.7 g/dL 02/04/2024 8:23 AM CDT UR LABORATORY Hematocrit 33.2(L) 35.0 - 47.0 % 02/04/2024 8:23 AM CDT UR LABORATORY MCV 89 78 - 100 fL 02/04/2024 8:23 AM CDT UR LABORATORY MCH 31.1 26.5 - 33.0 pg 02/04/2024 8:23 AM CDT UR LABORATORY MCHC 34.9 31.5 - 36.5 g/dL 02/04/2024 8:23 AM CDT UR LABORATORY RDW 12.7 10.0 - 15.0 % 02/04/2024 8:23 AM CDT UR LABORATORY Platelet Count 236 150 - 450 10e3/uL 02/04/2024 8:23 AM CDT UR LABORATORY Blood BLOOD SPECIMEN / Unknown Venipuncture / Unknown 02/04/2024 8:07 AM CDT 02/04/2024 8:20 AM CDT us Raine Franklin MD LAB - BLOOD ORDERABLES Fin al Result UR LABORATORY [facility] Acute Care Lab [address] [facility], [address] [place] [address], [facility] * Myriad Non-Invasive Screening???Prequel (01/22/2024 12:57 PM CDT) See Scanned Result MYRIAD NON-INVASIVE SCREENING PREQUEL-Scann ed 02/03/2024 9:13 AM CDT [facility] Blood STRUCTURE OF LEFT UPPER LIMB / Unknown Venipuncture / Unknown 01/22/2024 12:57 PM CDT 01/22/2024 12:57 PM CDT us Cadence Jones GC LAB - BLOOD ORDERABLES Final Result Performing Organization Address [facility]/ZIP Co de Phone Number [facility] [address] [phone] * (ABNORMAL) Myriad Carrier Screening???Foresight (01/22/2024 12:57 PM CDT) See Scanned Result MYRIAD CARRIER SCREENING FORESIGHT-Sca nned(A) 02/07/2024 11:15 AM CDT [facility] Blood STRUCTURE OF LEFT UPPER LIMB / Unknown Venipuncture / Unknown 01/22/2024 12:57 PM CDT 01/22/2024 12:57 PM CDT us Cadence Jones GC LAB - BLOOD ORDERABLES Final Result Performing Organization Address City/[facility]/ZIP Co de Phone Number [facility] [address] [phone] * Maternal Nuchal Translucency (01/22/2024 11:48 AM CDT) Anatomical Region Laterality Modality Ultrasound 01/22/2024 11:1 3 AM CDT Impressions 01/22/2024 4:09 PM CDT IMPRESSION ----- 1. Schreiber at 11w 5d gestational age. 2. The nuchal translucency measurement is within the normal range. 3. The nasal bone was visualized. 4. Sonographic biometry agrees with gestational age predicted by assigned SYLVAIN. 5. Visualized anatomy appropriate for early gestational age. Narrative 01/22/2024 4:09 PM CDT NT ----- Pat. Name: KENNEDY ANTONIO Study Date: 01/22/2024 11:13am Pat. NO: [id number] Referring MD: RAFY CONRAD Site: Fusion Operator: Андрей Francis RDMS : 1990 Age: 33 ----- INDICATION ----- History of deliver with demise at 21 weeks. METHOD ----- Transabdominal ultrasound examination. View: Sufficient ----- Schreiber . Number of fetuses: 1 DATING ----- Date Details Gest. age SYLVAIN LMP 11/01/2023 11 w + 5 d 08/07/2024 Previous U/S 12/31/2023 GA, GA 8 w + 4 d 11 w + 5 d 08/07/2024 U/S 01/22/2024 based upon CRL 12 w + 0 d 08/05/2024 Assigned dating based on the LMP, selected on 01/22/2024 11 w + 5 d 08/07/2024 GENERAL EVALUATION ----- Cardiac activity present Placenta: anterior Cord vessels: normal insertion Amniotic fluid: normal amount BIOMETRY ----- FHR 159 bpm CRL 53.2 mm 12w 0d Hadlock NT 1.50 mm ANATOMY ----- Face: Nasal bone present Neck: Normal Nuchal Translucency The following structures appear normal: Cranium. Abdominal wall. Stomach. Bladder. Arms. Legs. MATERNAL STRUCTURES ----- Cervix Visualized Appearance: Appears Closed Approach - Transabdominal Right Ovary Visualized Left Ovary Visualized RECOMMENDATION ----- Thank-you for referring your patient for MFM consult & ultrasound assessment. I discussed the findings on today's ultrasound with the patient. Your patient had cell free DNA screening today. The results of this screen will be forwarded to you as soon as they are available. Because cell free DNA screening does not screen for open neural tube defects, the patient should be offered MSAFP screening at 15-20 weeks gestation. Comprehensive ultrasound is recommended at 18-20 weeks which has been scheduled with our office. Please see separate note in Epic for full details from today's consult visit including recommendations for ongoing management. Return to primary provider for continued care. If you have questions regarding today's evaluation or if we can be of further service, please contact the [facility]. anomalies may be present but not detected Procedure Note Silvana Avilez MD - 01/22/2024 NT ----- Pat. Name: KENNEDY ANTONIO Study Date: 01/22/2024 11:13am Pat. NO: [id number] Referring MD: RAFY CONRAD Site: Fusion Operator: Андрей Francis RDMS : 1990 Age: 33 ----- INDICATION ----- History of deliver with demise at 21 weeks. METHOD ----- Transabdominal ultrasound examination. View: Sufficient ----- Schreiber . Number of fetuses: 1 DATING ----- DateDetailsGest. age SYLVAIN LMP w + 5 d 08/07/2024 Previous U/S 12/31/2023 GA, GA8 w + 4 d11 w + 5 d 08/07/2024 U/S 01/22/2024ased upon CRL12 w + 0 d 08/05/2024 Assigned dating based on the LMP, selected on w + 5 d 08/07/2024 GENERAL EVALUATION ----- Cardiac activity present Placenta: anterior Cord vessels: normal insertion Amniotic fluid: normal amount BIOMETRY ----- FHR 159bpm CRL 53.2mm 12w 0dHadlock NT 1.50mm ANATOMY ----- Face: Nasal bone present Neck: Normal Nuchal Translucency The following structures appear normal: Cranium. Abdominal wall. Stomach. Bladder. Arms. Legs. MATERNAL STRUCTURES ----- Cervix Visualized Appearance: Appears Closed Approach - Transabdominal Right Ovary Visualized Left Ovary Visualized RECOMMENDATION ----- Thank-you for referring your patient for MFM consult & ultrasoundassessment. I discussed the findings on today's ultrasound with the patient. Your patient had cell free DNA screening today. The results of this screenwill be forwarded to you as soon as they are available. Because cell freeDNA screening does not screen for open neural tube defects, the patient should be offered MSAFPscreening at 15-20 weeks gestation. Comprehensive ultrasound is recommended at 18-20 weeks which has beenscheduled with our office. Please see separate note in Epic for full details from today's consultvisit including recommendations for ongoing management. Return to primary provider for continued care. If you have questions regarding today's evaluation or if we can be offurther service, please contact the [facility]. anomalies may be present but not detected IMPRESSION ----- 1. Schreiber at 11w 5d gestational age. 2. The nuchal translucency measurement is within the normal range. 3. The nasal bone was visualized. 4. Sonographic biometry agrees with gestational age predicted by assignedEDD. 5. Visualized anatomy appropriate for early gestational age. us Raine Franklin MD [facility] ORDERABLES Edit ed Result - Final from Last 3 Months Insurance [facility] [facility] [place] Address: [facility] [address] [place] [address] Care Teams Account Planner Relationship Specialty Start Date End Date Pierre Dyson [address] [place] [id number] PCP - General Family Medicine 02/04/24 Silvana Avilez MD [address] [id number] Assigned OBGYN Provider 02/19/24 Sonja Martinez MD [address], [place] [address] Assigned Pediatric Specialist Provider 03/21/24
--- OUTSIDE RECORDS SUMMARY | 2024-03-22 14:22 | XMS_ITS | Encounter Summary ---
Author Organization [place] Address [address] [place] [address]. [place] [address] Care Team Providers Care Naval Aircrewman Name Role Phone Pierre Dyson Primary Care Provider [phone] Encounter Details Date Type Department Care Team (Late st Contact Info) Description 02/04/2024 9:00 AM CDT Office Visit [facility] [employer] [address] [place] [phone] Marisol Dhaliwal Social History Tobacco Use Types Packs/Day Years Used Date Smoking Tobacco: Never Alcohol Use Standard Drinks/Week Comments [...] in an abandoned building, in an overnight alf, or couch-surfing.) Yes 02/04/2024 Are you worried [...] on file Sexual Orientation Not on file documented as of this encounter Plan of Treatment Not on file documented as of this encounter Visit Diagnoses Not on filedocumented in this encounter Care Teams Naval Aircrewman Relationship Specialty Start Date End Date Pierre Dyson [address] [facility] [place] [address] PCP - General Family Medicine 02/04/24 documented as of this encounter
--- OUTSIDE RECORDS SUMMARY | 2024-03-22 14:22 | XMS_ITS | Encounter Summary ---
Author Organization [place] Address [address] [facility] [place] [address] Care Team Providers Care Floor Coverer Name Role Phone No Ref-Primary, Physician Primary Care Provider Reason for Referral * Consultation (Routine: Next available opening) - Pending Review Specialty Diagnoses / Procedures Referred By Kathy t Referred To Contact Pediatric Genetics Diagnoses Family history of malignant neoplasm of breast Cadence Jones GC [address] [place] [address] Phone: tel: fax: Referral ID Status Reason Start Date Expiration Date V isits Requested Visits Authorized [id number] Pending Review 01/23/2024 01/22/2025 1 1 Scheduling Instructions Correction, please place Pediatric Genetics and Metabolism referral (General Genetics) - Per Nurse Stuart Michelle Question Answer Reason for Referral: Other My Clinical Question Is: Family history of malignant neoplasm of breast Scheduling Instructions: [facility] will call you to coordinate your care as prescribed by your provider. If you don't hear from a business development representative within 2 business days, please call . Additional Information: RETRANSCRIBED / REF BY: Cadence Jones GC / DX: Family history of malignant neoplasm of breast Comments RETRANSCRIBED FROM GENETIC COUNSELING/ONC, Per Nurse Emmanuelleator REF BY: Cadence Jones GC DX: Family history of malignant neoplasm of breast We will make every effort to schedule with your recommended provider. However, to minimize your waiting time for the appointment, we may offer an appointment with an alternative provider. Please be aware that coverage of these services is subject to the terms and limitations of your health insurance plan. Call member services at your health plan with any benefit or coverage questions. [facility] will call you to coordinate your care as prescribed by your provider. If you don't hear from a business development representative within 2 business days, please call . Encounter Details Date Type Department Care Team (Late st Contact Info) Description 01/23/[address] [facility] [address] [place] [phone] Provider, Generic External Data Family history of malignant neoplasm of breast (Primary Dx) Social History Tobacco Use Types Packs/Day Years Used Date Smoking Tobacco: Never Alcohol Use Standard Drinks/Week Comments Never 0 (1 standard drink = 0.6 oz pur e alcohol) Estimated Date of Delivery Comme nts Yes 08/07/2024 Based on last me nstrual period of 11/01/2023 Sex and Gender Information Value Date Recorded Sex Assigned at Not on file Legal Sex Female 12:20 PM CDT Gender Identity Not on file Sexual Orientation Not on file documented as of this encounter Plan of Treatment Scheduled Referrals Name Type Priority Associated Diagnoses Orde r Schedule Peds Genetics and Metabolism Shooter Helper Referral Referral Routine: Next available opening Family history of malignant neoplasm of breast Ordered: 01/23/2024 documented as of this encounter Visit Diagnoses Diagnosis Family history of malignant neoplasm of breast- Primary documented in this encounter Care Teams Floor Coverer Relationship Specialty Start Date End Date No Ref-Primary, Physician PCP - General 01/01/24 02/03/24 documented as of this encounter
--- OUTSIDE RECORDS SUMMARY | 2024-03-22 14:22 | XMS_ITS | Encounter Summary ---
Author Organization [facility] Address [address] [place] [address] Care Team Providers Care Instrumentation And Controls Technician Name Role Phone No Ref-Primary, Physician Primary Care Provider Reason for Referral * Diagnostic Imaging Ultrasound (Routine) - Pending Review Specialty Diagnoses / Procedures Referred By Kathy grover Referred To Contact Radiology. Diagnoses History of delivery, currently , first trimester Procedures Maternal Nuchal Translucency Raine Franklin MD [address] [facility] [address] [place] [address] Phone: tel: fax: Referral ID Status Reason Start Date Expiration Date V isits Requested Visits Authorized [id number] Pending Review 01/08/2024 01/07/2025 1 1 Reason for Visit * Diagnostic Imaging Ultrasound (Routine) - Pending Review Specialty Diagnoses / Procedures Referred By Contac t Referred To Contact Radiology. Diagnoses History of delivery, currently , first trimester Procedures Maternal Nuchal Translucency Raine Franklin MD [address] [place] [address] Phone: tel: fax: Referral ID Status Reason Start Date Expiration Date V isits Requested Visits Authorized [id number] Pending Review 01/08/2024 01/07/2025 1 1 Encounter Details Date Type Department Care Team (Latest Contact Info) Description 01/22/2024 10:13 AM CDT - 01/22/2024 11:59 PM CDT Hospital Encounter [facility] [place] [address] [facility] [address] [place] [address] Silvana Avilez MD [address] [place] [address] History of delivery, currently , first trimester Discharge Disposition: Home or Self Care Social History Tobacco Use Types Packs/Day Years [...] on file documented as of this encounter Medications at Time of Discharge fluticasone-vilan terol (BREO ELLIPTA) 100-25 MCG/ACT inhaler Inhale 1 puff into the lungs daily. 04/10/2023 levothyroxine (SYNTHROID/LEVOTH ROID) 75 MCG tablet Take 75 mcg by mouth daily. 01/10/2024 documented as of this encounter Plan of Treatment Not on file documented as of this encounter Procedures Procedure Name Priority Date/Time Associated Diagnosis Comments MFM NUCHAL TRANSLUCENCY Routine 01/22/2024 11:48 AM CDT History of delivery, currently , first trimester documented in this encounter Results * Maternal Nuchal Translucency (01/22/2024 11:48 AM [...] PM CDT NT ----- Pat. Name: KENNEDY PRICE Study Date: 01/22/2024 11:13am Pat. NO: [id number] Referring MD: RAFY CONRAD Site: Logistics Center Manager: Андрей Francis RDMS : 1990 Age: 33 [...] - 01/22/2024 NT ----- Pat. Name: KENNEDY PRICE Study Date: 01/22/2024 11:13am Pat. NO: [id number] Referring MD: RAFY CONRAD Site: Logistics Center Manager: Андрей Francis RDMS : 1990 Age: 33 [...] ----- Thank-you for referring your patient for M consult & ultrasoundassessment. I discussed the findings [...] early gestational age. us Raine Franklin MD [facility] US ORDERABLES Edit ed Result - Final documented in this encounter Visit Diagnoses Diagnosis History of delivery, currently , first trimester documented in this encounter Care Teams Instrumentation And Controls Technician Relationship Specialty Start Date End Date No Ref-Primary, Physician PCP - General 01/01/24 02/03/24 documented as of this encounter
--- OUTSIDE RECORDS SUMMARY | 2024-03-22 14:22 | XMS_ITS | Encounter Summary ---
Author Organization [place] Address [facility] access hospital[facility] [place] [address] Care Team Providers Care Judge Name Role Phone No Ref-Primary, Physician Primary Care Provider Reason for Visit * Reason Onset Date Comments Appointment 01/27/2024 Encounter Details Date Type Department Care Team (Late st Contact Info) Description 01/27/[address] [facility] [address] [place] [address] Sravani Delgado, CRUZ Appointment Social History Tobacco Use Types Packs/Day Years [...] on file documented as of this encounter Miscellaneous Notes * Telephone Encounter - Sravani Delgado RN - 01/27/2024 4:01 PM CDT Spoke with Miriam, informed pt Dr. Franklin would like to move her cerclage on 02/03 from 1030 to 0830.Pt agreeable, reviewed NPO guidelines and arrival time of 0630. PT CIRA. Sravani Delgado RN documented in this encounter Plan of Treatment Not on file documented as of this encounter Visit Diagnoses Not on filedocumented in this encounter Care Teams Judge Relationship Specialty Start Date End Date No Ref-Primary, Physician PCP - General 01/01/24 02/03/24 documented as of this encounter
--- OUTSIDE RECORDS SUMMARY | 2024-03-22 14:22 | XMS_ITS | Encounter Summary ---
Author Organization [facility] Address [address] [place] [address]. [place] [address] Care Team Providers Care Law Firm Administrator Name Role Phone No Ref-Primary, Physician Primary Care Provider Encounter Details Date Type Department Care Team (Late st Contact Info) Description 01/23/2024 Transcribe Orders [facility] [address] [facility] [address],[place] [phone] Provider, Generic External Data Social History Tobacco Use Types Packs/Day Years [...] on filedocumented in this encounter Care Teams Law Firm Administrator Relationship Specialty Start Date End Date No Ref-Primary, Physician PCP - General 01/01/24 02/03/24 documented as of this encounter
--- OUTSIDE RECORDS SUMMARY | 2024-03-22 14:22 | XMS_ITS | Referral Summary ---
Author Organization [facility] Address [address] [place] [address] Care Team Providers Care Automobile Repair Service Estimator Name Role Phone Pierre Dyson Primary Care Provider Silvana Avilez MD Unavailable [phone] Sonja Martinez MD Unavailable [phone] Encounters Date Type Department Care Team Description 03/06/2024 Travel 03/06/2024 8:45 AM STEEL CHECKER Office Visit [facility] [employer] [address] [place] [phone] Marisol Dhaliwal 03/06/2024 9:15 AM STEEL CHECKER Office Visit [facility] [address] [facility] [address] [place] [phone] Sonja Martinez MD related condition in second trimester (Primary Dx); Cervical cerclage suture present in second trimester; History of delivery, currently ; Hypothyroidism affecting in second trimester; Bilateral hearing loss, unspecified hearing loss type 03/06/2024 8:41 AM STEEL CHECKER - 03/06/2024 11:59 PM STEEL CHECKER Hospital Encounter [facility] Maternal Medicine [facility] [address] [facility] [address] [place] [phone] Sonja Martinez MD History of delivery, currently , first trimester Discharge Disposition: Home or Self Care 03/01/2024 Travel 02/13/2024 MyC Medical Advice [facility] Maternal Medicine [facility] [address] [place] [address] Cadence Jones, GC 02/06/2024 Telephone [facility] Maternal Medicine [facility] [address] [place] [address] Mery Balbuena, RN Letter for School/Work 02/04/2024 8:30 AM CDT Hospital Encounter [facility] [address] [phone] Raine Franklin MD 02/04/2024 Travel 02/04/2024 9:00 AM CDT Office Visit [facility] [employer] [address] [place] [phone] Marisol Dhaliwal 02/04/2024 6:30 AM CDT Office Visit [facility] [employer] [address] [place] [phone] Sierra Wall 02/04/2024 8:30 AM CDT - 02/04/2024 9:30 AM CDT Surgery [facility] [address] [phone] Raine Franklin MD CERCLAGE, CERVIX, VAGINAL APPROACH 02/04/2024 9:26 AM CDT Anesthesia Event [facility] [address] [phone] Yasmin Montgomery MD Navarro, Amanda, DO 02/04/2024 6:40 AM CDT - 02/04/2024 1:09 PM CDT Hospital Encounter [facility] [address] [phone] Raine Franklin MD Discharge Disposition: Home or Self Care 02/03/2024 MyC Medical Advice [facility] Maternal Medicine [facility] [address] [place] [address] Cadence Jones, GC 01/27/2024 Telephone [facility] [place] [address] [place] [address] Sravani Delgado, CRUZ Appointment 01/23/2024 Telephone [facility] [place] [address] [place] [address] Sravani Delgado, RN Appointment 01/23/2024 Transcribe Orders [facility] [address] [place] [phone] Provider, Generic External Data Family history of malignant neoplasm of breast (Primary Dx) 01/23/2024 Transcribe Orders [facility] [address] [phone] Provider, Generic External Data 01/22/2024 Medical Correspondence [facility] [address] [facility] [address] [place] [address] Scan, Non-Provider 01/22/2024 12:50 PM CDT Lab [facility] [address] [place] [phone] Silvana Avilez MD Encounter for screening of mother; Encounter of female for testing for genetic disease carrier status for procreative management 01/22/2024 Orders Only [facility] Maternal Medicine [facility] [address] [place] [address] Makenzie Bowser RN History of delivery, currently , first trimester (Primary Dx) 01/22/2024 Travel 01/22/2024 10:15 AM CDT Office Visit [facility] [employer] [address] [place] [phone] Shona Oakes 01/22/2024 10:13 AM CDT - 01/22/2024 11:59 PM CDT Hospital Encounter [facility] Maternal Medicine [facility] [address] [facility] [address] [place] [phone] Silvana Avilez MD History of delivery, currently , first trimester Discharge Disposition: Home or Self Care 01/22/2024 11:45 AM CDT Office Visit [place] [address] [address] [facility] [address] [place] [phone] Silvana Avilez MD Cervical insufficiency during in first trimester, antepartum (Primary Dx); History of delivery, currently , first trimester 01/22/2024 10:15 AM CDT Office Visit [place] [address] [address] [facility] [address] [place] [phone] Silvana Avilez MD Stoner, Natalie E, GC Encounter for screening of mother (Primary Dx); History of delivery, currently , first trimester; Encounter of female for testing for genetic disease carrier status for procreative management; Encounter for procreative genetic counseling and testing; Deafness congenital; Family history of malignant neoplasm of breast; Family history of hypertrophic cardiomyopathy 01/14/2024 PRE VISIT [place] [address] [address] [facility] [address] [place] [phone] Ana Jenkins RN Genetic Counseling (Hx PTD and demise at 21 weeks); Ultrasound (NT-Hx PTD and demise at 21 weeks); Consult (Hx PTD and demise at 21 weeks) 01/08/2024 Orders Only [facility] [address] [place] [address] Marisol Mooney RN History of delivery, currently , first trimester (Primary Dx) 01/01/2024 Transcribe Orders [facility] [place] [address] [address] [facility] [address] [place] [phone] Wandy Conrad related condition, antepartum (Primary Dx) 12/31/2023 Medical Correspondence [facility] Management [address] [place] [address] [address] [place] [address] Scan, Non-Provider [facility] [place] PROVIDER SERVICE REQUEST- OUTPATIENT from Last 3 Months Allergies Active Allergy Reactions Criticality Noted Date [...] on last me nstrual period of 11/01/2023 Social History Tobacco Use Types Packs/Day Years [...] Answer Date Recorded Do you have housing? (Housin g is defined as stable permanent housing and does not include staying ouside in a car, in a tent, in an abandoned building, in an overnight [place] [facility], or couch-surfing.) Yes 02/04/2024 Are you worried [...] 02/04/2024 7:10 AM CDT Plan of Treatment Not on file Procedures Procedure Name Priority Date/Time Associated Diagnosis Comments [facility] COMPREHENSIVE SINGLE Routine 03/06/2024 9:46 AM STEEL CHECKER History of delivery, currently , first trimester ANE SPINAL BLOCK FORM Routine 02/04/2024 9:29 AM CDT CERCLAGE, CERVIX, VAGINAL APPROACH 02/04/2024 9:25 AM CDT History of delivery, currently , first trimester ABO/RH TYPE AND SCREEN STAT 8:07 AM CDT TYPE AND SCREEN, ADULT STAT 8:07 AM CDT CBC WITH PLATELETS STAT 02/04/2024 8: 07 AM CDT [facility] CARRIER SCREENING FORESIGHT Routine 01/22/2024 12:57 PM CDT Encounter of female for testing for genetic disease carrier status for procreative management [facility] NON-INVASIVE SCREENING PREQUEL Routine 01/22/2024 12:57 PM CDT Encounter for screening of mother [facility] NUCHAL TRANSLUCENCY Routine 01/22/2024 11:48 AM CDT History of delivery, currently , first trimester from Last 3 Months Results * [facility] US Comprehensive Single (03/06/2024 9:46 AM STEEL CHECKER) Anatomical Region Laterality Modality Ultrasound 03/06/2024 8:46 AM STEEL CHECKER Impressions 03/06/2024 5:55 PM STEEL CHECKER IMPRESSION ----- 1. Schreiber at 18w 0d [...] a circumvallate placenta. Narrative 03/06/2024 5:55 PM STEEL CHECKER Comprehensive ----- Pat. Name: KENNEDY ANTONIO Study Date: 03/06/2024 8:46am Pat. NO: [id number] Referring MD: WANDY CONRAD Site: Corporate Sales Manager: Key Fam RDMS : 1990 Age: 33 [...] 4d Hadlock Humerus 26.3 mm 18w 2d [facility] Weight Calculation: EFW 243 g 75% Hadlock EFW (lb,oz) 0 lb 9 oz EFW by Hadlock ([id number]) Head / Face / Neck Biometry: Commercial Credit Specialist 7.4 mm CM 3.8 mm Nasal bone 5.8 mm ANATOMY ----- The following structures appear normal: Head / Neck Cranium. Head size. Head shape. Lateral ventricles. Choroid plexus. Midline falx. Cavum septi pellucidi. Cerebellum. Cisterna magna. Parenchyma. Thalami. Vermis. Neck. Nuchal fold. Face Lips. Profile. Nose. Maxilla. Mandible. Orbits. Lens. Heart / Thorax 4-chamber view. RVOT view. LVOT view. 3-vessel view. 1-ijsojx-ipqzujc view. Situs. Aortic arch view. Bicaval view. [...] medical record, and communicating with other health care management assistant and/or care coordination. Procedure Note Sonja Martinez MD - 03/06/2024 Comprehensive ----- Pat. Name: KENNEDY ANTONIO Study Date: 03/06/2024 8:46am Pat. NO: [id number] Referring MD: WANDY CONRAD Site: Corporate Sales Manager: Key Fam RDMS : 1990 Age: 33 [...] EFW (lb,oz) 0 lb 9oz EFW by Hadlock([id number]) Head / Face / Neck Biometry: Commercial Credit Specialist 7.4mm CM 3.8mm Nasal bone 5.8mm ANATOMY ----- The following structures appear normal: Head / Neck Cranium. Head size. Head shape.Lateral ventricles. Choroid plexus. Midline falx. Cavum septi pellucidi.Cerebellum. Cisterna magna. Parenchyma. Thalami. Vermis. Neck. Nuchal fold. Face Lips. Profile. Nose. Maxilla.Mandible. Orbits. Lens. Heart / Thorax 4-chamber view. RVOT view. LVOT view.3-vessel view. 0-rfqgqa-lbjscmq view. Situs. Aortic arch view. Bicavalview. Ductal [...] electronic medical record, andcommunicating with other health care management assistant and/or carecoordination. IMPRESSION ----- 1. Schreiber at [...] a circumvallate placenta. us Raine Franklin MD IMG [facility] ORDERABLES Edit ed Result - Final * Spinal Block (02/04/2024 9:29 AM CDT) Narrative Sandhya Riggs DO - 02/04/2024 9:29 AM CDT Sandhya Riggs DO 02/04/2024 12:09 PM Intrathecal injection Procedure Note Pre-Procedure Staff - Anesthesiologist: Yasmin Montgomery MD Resident/Fellow: Sandhya Riggs DO Performed By: resident and with residents Procedure performed by resident/fellow/OPTIMIZATION ENGINEER in presence of a teaching physician. Location: [...] Medication Administration Time: 02/04/2024 9:29 AM FOR [facility] ([facility]) ONLY: Pain Team Contact information: please page the Pain Team Via [employer]. Search Pain. During daytime hours, please page the attending first. At night please page the resident first. us Yasmin Montgomery MD MD ANESTHESIA Edited Result - Final * Adult Type and Screen (02/04/2024 8:07 AM CDT) Pathologist [facility] ABO/RH(D) B POS 02/04/2024 8:05 AM CDT UR BLOOD BANK Antibody Screen Negative Negative 02/04/2024 8:05 AM CDT UR BLOOD BANK SPECIMEN EXPIRATION DATE [id number] 02/04/2024 8:05 AM CDT UR BLOOD BANK Blood BLOOD SPECIMEN / Unknown Venipuncture / Unknown 02/04/2024 8:07 AM CDT 02/04/2024 8:20 AM CDT us Raine Franklin MD LAB - BLOOD BANK TEST ORDE R Final Result UR BLOOD BANK [facility] [address] [facility] [place] [address] * (ABNORMAL) CBC with platelets (02/04/2024 8:07 AM CDT) [facility] WBC Count 8.2 4.0 - 11.0 10e3/uL [...] 8:07 AM CDT 02/04/2024 8:20 AM CDT Raine Franklin MD LAB - BLOOD ORDERABLES Fin al Result UR LABORATORY [facility] Acute Care Lab [address] [facility] [place] [address] * [facility] Non-Invasive Screening???Prequel (01/22/2024 12:57 PM CDT) See Scanned Result [facility] NON-INVASIVE SCREENING PREQUEL-Scann ed 02/03/2024 9:13 AM CDT [facility] Blood STRUCTURE OF LEFT UPPER LIMB / Unknown Venipuncture / Unknown 01/22/2024 12:57 PM CDT 01/22/2024 12:57 PM CDT us Cadence Jones GC LAB - BLOOD ORDERABLES Final Result [facility] [address] [place], [place] [id number] [place] [address] * (ABNORMAL) My[facility] Carrier Screening???Foresight (01/22/2024 12:57 PM CDT) See Scanned Result [facility] CARRIER SCREENING FORESIGHT-Sca nned(A) 02/07/2024 11:15 AM CDT [facility] Blood STRUCTURE OF LEFT UPPER LIMB / Unknown Venipuncture / Unknown 01/22/2024 12:57 PM CDT 01/22/2024 12:57 PM CDT us Cadence Jones LAB - BLOOD ORDERABLES Final Result [facility] [place] [address], [facility] [phone] * Maternal Nuchal Translucency (01/22/2024 11:48 AM [...] ANTONIO Study Date: 01/22/2024 11:13am Pat. NO: [id number] Referring MD: WANDY CONRAD Site: Corporate Sales Manager: Андрей Francis RDMS : 1990 Age: [...] ANTONIO Study Date: 01/22/2024 11:13am Pat. NO: [id number] Referring MD: WANDY HOUSTON Site: Corporate Sales Manager: Андрей Francis RDMS : 1990 Age: [...] early gestational age. us Raine Franklin MD [facility] ORDERABLES Edit ed Result - Final from Last 3 Months Insurance BLUE PLUS Care Teams Automobile Repair Service Estimator Relationship Specialty Start Date End Date Pierre Dyson [address] [place] [address] [place] [address] PCP - General Family Medicine 02/04/24 Silvana Avilez MD [address] [place] [address] [address] Assigned OBGYN Provider 02/19/24 Sonja Martinez MD [address] [place], [place] [address] [address] Assigned Pediatric Specialist Provider 03/21/24
--- OUTSIDE RECORDS SUMMARY | 2024-03-22 14:22 | XMS_ITS | Encounter Summary ---
Author Organization [place] Address [address] [place] [address] Care Team Providers Care Political Research Scientist Name Role Phone Pierre Dyson Primary Care Provider [phone] Silvana Avilez MD Unavailable [phone] Sonja Martinez MD Unavailable [phone] Encounter Details Date Type Department Care Team (Late st Contact Info) Description 02/13/2024 MyC Medical Advice [facility] Maternal Medicine [facility] [place] [address] [facility] [address] [place] [address] Cadence Jones, [address] [address] [place], [place] [id number] Social History Tobacco Use Types Packs/Day Years [...] in an abandoned building, in an overnight [facility], or couch-surfing.) Yes 02/04/2024 Are you worried [...] on filedocumented in this encounter Care Teams Political Research Scientist Relationship Specialty Start Date End Date Pierre Dyson [address] [place] [address] PCP - General Family Medicine 02/04/24 Silvana Avilez MD [address] [place], [place] [address] Assigned OBGYN Provider 02/19/24 Sonja Martinez MD [address] [address] Assigned Pediatric Specialist Provider 03/21/24 documented as of this encounter
--- OUTSIDE RECORDS SUMMARY | 2024-03-22 14:22 | XMS_ITS | Encounter Summary ---
Author Organization [facility] Address [address] [place] [address]. [place] [address] Care Team Providers Care Wafer Substrate Tester Name Role Phone Pierre Dyson Primary Care Provider [phone] Reason for Visit * Auth/Cert (Routine) Specialty Diagnoses / Procedures Referred By Contac t Referred To Contact wad compressor operator adjuster Diagnoses History of delivery, currently , first trimester History of delivery, currently , first trimester [O09.891] Procedures ZZC REVISION OF CERVIX,NON OBSTETRICAL MA CERCLAGE CERVIX DURING , VAGINAL CERCLAGE, CERVIX, VAGINAL APPROACH [facility] [address] [place], [place] [address] [id number] Phone: tel: Referral ID Status Reason Start Date Expiration Date Visits Re quested Visits Authorized [id number] 1 1 Encounter Details Date Type Department Care Team (Late st Contact Info) Description 02/04/2024 9:26 AM CDT Anesthesia Event [facility] [address] [place] [address] [place] [id number] Yasmin Montgomery MD [address] [place] [id number] Sandhya Riggs, [address] [facility] [address] [place], [place] [address] Anesthesia Record Procedure Summary Procedure Name Responsible Anesthesiologist Anesthesia Start Time Anesthesia Stop Time CERCLAGE, CERVIX, VAGINAL APPROACH (Cervix) Yasmin Montgomery MD 02/04/24 0902/04/24 1030 Events Date Time Event Comment 02/04/2024 0836 CO CHAIRMAN Ready for Procedure 0926 An Start Anesthesia Star t is defined as when the anesthesia provider assumed care, began anesthesia prep, remained continuously present with the patient, and excludes all time for performing the pre-anesthesia evaluation. The Pre-Anesthesia Evaluation was completed before Anesthesia Start. 09 An Start Data 0927 AN REASSESS I attest that I have identified and re-evaluated the patient immediately before the induction of anesthesia and I am satisfied that the anesthetic plan is suitable for the patient's condition and procedure. The first vital signs recorded are pre- induction. Sandhya Riggs DO 0939 Anesthesia Ready for Procedu re 1021 an stop data 1030 An Stop Electronically signed by Sandhya Riggs DO on February 04, 2024 10:30 AM Meds Name Total ondansetron 2 mg/mL 4 mg 2% Chloroprocaine PF (Intrathecal) 60 mg * Agents Name N2O Air * Blood No blood administrations on file. Lines, Drains, and Airways Type Details Placement Removal Peripheral IV 02/04/24; 42; 20 G ; BD; Anterior, Left; Hand; Chlorhexidine; 1; Tolerated well 02/04/24 0742 by Lorna Back RN 02/04/24 1136 by Lorna Back, RN documented in this encounter Social History Tobacco Use Types Packs/Day Years [...] Answer Date Recorded Do you have housing? (Indualexia g is defined as stable permanent housing and does not include staying ouside in a car, in a tent, in an abandoned building, in an overnight correction, or couch-surfing.) Yes 02/04/2024 Are you worried [...] on file documented as of this encounter OR Notes * Anesthesia Postprocedure Evaluation - Yasmin Montgomery MD - 02/08/2024 9:02 AM CDT Patient: Miriam De La Cruz Procedure: Procedure(s): CERCLAGE, CERVIX, VAGINAL APPROACH Anesthesia Type: Spinal Note: Disposition: Outpatient Postop Pain Control: Uneventful Sign Out: Well controlled pain PONV: No Neuro/Psych: Uneventful Sign Out: Acceptable/Baseline neuro status Airway/Respiratory: Uneventful Sign Out: Acceptable/Baseline resp. status CV/Hemodynamics: Uneventful Sign Out: Acceptable CV status; No obvious hypovolemia; No obvious fluid overload Other NRE: NONE DID A NON-ROUTINE EVENT OCCUR? No Last vitals: Vitals Value Taken Time BP 119/89 02/04/24 1121 Temp 36.9 ??C (98.5 ??F) 02/04/24 1027 Pulse 77 02/04/24 1115 Resp 18 02/04/24 1121 SpO2 100 % 02/04/24 1108 Electronically Signed By: Yasmin Montgomery MD February 08, 2024 9:02 AM * Anesthesia Procedure Notes - Sandhya Riggs DO - 02/04/2024 9:57 AM CDT Associated Order(s): Spinal Block Intrathecal injection Procedure Note Pre-Procedure Staff - Anesthesiologist: Yasmin Montgomery MD Resident/Fellow: Sandhya Riggs DO Performed By: resident and with residents Procedure performed by resident/fellow/CO CHAIRMAN in presence of a teaching physician. Location: [...] Time: 02/04/2024 9:29 AM FOR [facility] ([facility] ONLY: Pain Team Contact information: please page the Pain Team Via [employer]Search Pain. During daytime hours, please page the attending first. At night please page the resident first. * Anesthesia Preprocedure Evaluation - Sandhya Riggs DO - 02/03/2024 5:08 PM CDT Anesthesia Pre-Procedure Evaluation Patient: Miriam De La Cruz : 1990 Procedure : Procedure(s): CERCLAGE, CERVIX, VAGINAL APPROACH Past Medical History: Diagnosis Date Hypothyroidism Past Surgical History: Procedure Laterality Date SECTION KNEE SURGERY Left ACL XR KNEE SURGERY BRIDGETTE LEFT Left Allergies Allergen Reactions Cefaclor Hives, Anaphylaxis and Other (See Comments) Unknown Itchy Social History Tobacco Use Smoking status: Never Smokeless tobacco: Not on file Substance Use Topics Alcohol use: Never Wt Readings from Last 1 Encounters: No data found for Wt Anesthesia Evaluation Pt has had prior anesthetic. Type: General and Regional. No history of anesthetic complications ROS/MED HX ENT/Pulmonary: - neg pulmonary ROS Neurologic: - neg neurologic ROS Cardiovascular: - neg cardiovascular ROS METS/Exercise Tolerance: Hematologic: - neg hematologic ROS Musculoskeletal: - neg musculoskeletal ROS GI/Hepatic: - neg GI/hepatic ROS Renal/Genitourinary: - neg Renal ROS Endo: (+) thyroid problem, hypothyroidism, Psychiatric/Substance Use: - neg psychiatric ROS Infectious Disease: - neg infectious disease ROS Malignancy: - neg malignancy ROS Other: Comment: , hx of PPROM, PTD Hx of C/S x1 and x2 (+) Possibly , , , Physical Exam Airway Mallampati: II Neck ROM: full Mouth opening: > 3 cm Respiratory Devices and Support Dental (+) Completely normal teeth Cardiovascular cardiovascular exam normal Pulmonary pulmonary exam normal OUTSIDE LABS: CBC: No results found for: WBC, HGB, HCT, PLT BMP: No results found for: NA, POTASSIUM, CHLORIDE, CO2, BUN, CR, GLC COAGS: No results found for: PTT, INR, FIBR POC: No results found for: BGM, HCG, HCGS HEPATIC: No results found for: ALBUMIN, PROTTOTAL, ALT, AST, GGT, ALKPHOS, BILITOTAL,BILIDIRECT, RAMYA OTHER: No results found for: PH, LACT, A1C, SANDOVAL, PHOS, MAG, LIPASE, AMYLASE, TSH,T4, T3, CRP, SED Anesthesia Plan ASA Status: 2 Anesthesia Type: Spinal. Consents Anesthesia Plan(s) and associated risks, benefits, and realistic alternatives discussed. Questions answered and patient/enrollment representative(s) expressed understanding. - Discussed: - Discussed with: Patient Postoperative Care Comments: Sandhya Riggs DO I have reviewed the pertinent notes and labs in the chart from the past 30 days and (re)examined the patient. Any updates or changes from those notes are reflected in this note. documented in this encounter Miscellaneous Notes * Anesthesia Care Transfer Note - Sandhya Riggs DO - 02/04/2024 10:30 AM CDT Patient: Miriam De La Cruz Procedure: Procedure(s): CERCLAGE, CERVIX, VAGINAL APPROACH Diagnosis: History of delivery, currently , first trimester [O09.891] Diagnosis Additional Information: No value filed. Anesthesia Type: Spinal Note: Oropharynx: oropharynx clear of all foreign objects and spontaneously breathing Level of Consciousness: awake Oxygen Supplementation: room air Independent Airway: airway patency satisfactory and stable Dentition: dentition unchanged Vital Signs Stable: post-procedure vital signs reviewed and stable Report to RN Given: handoff report given Patient transferred to: Phase II Handoff Report: Identifed the Patient, Identified the Reponsible Provider, Reviewed the pertinent medical history, Discussed the surgical course, Reviewed Intra-OP anesthesia mangement and issues during anesthesia, Set expectations for post-procedure period and Allowed opportunity for questions andacknowledgement of understanding Vitals: Vitals Value Taken Time BP 109/77 02/04/24 1027 Temp 36.9 ??C (98.5 ??F) 02/04/24 1027 Pulse 91 02/04/24 1030 Resp 11 02/04/24 1030 SpO2 100 % 02/04/24 1030 Vitals shown include unfiled device data. Electronically Signed By: Sandhya Riggs DO February 04, 2024 10:30 AM documented in this encounter Plan of Treatment Not on file documented as of this encounter Procedures Procedure Name Priority Date/Time Associated Diagnosis Comments ANE SPINAL BLOCK FORM Routine 02/04/2024 9:29 AM CDT documented in this encounter Results * Spinal Block (02/04/2024 9:29 AM CDT) Narrative Sandhya Riggs DO - 02/04/2024 9:29 AM CDT Sandhya Riggs DO 02/04/2024 12:09 PM Intrathecal injection Procedure Note Pre-Procedure Staff - Anesthesiologist: Yasmin Montgomery MD Resident/Fellow: Sandhya Riggs DO Performed By: resident and with residents Procedure performed by resident/fellow/CO CHAIRMAN in presence of a teaching physician. Location: [...] Time: 02/04/2024 9:29 AM FOR [facility] ([facility] ONLY: Pain Team Contact information: please page the Pain Team Via [employer]. Search Pain. During daytime hours, please page the attending first. At night please page the resident first. us Yasmin Chugaieva MD MA ANESTHESIA Edited Result - Final documented in this encounter Visit Diagnoses Not on filedocumented in this encounter Administered Medications Inactive Administered Medications - up to 3 most recent administrations Medication Order MAR Action Action Date Dose Rate Site chloroprocaine (PF) (NESACAINE) 2 % injection Intrathecal, Starting on Sat02/04/24 at 0933, Anesthesia Intra-op $Given 02/04/2024 9:33 AM CDT 60 mg ondansetron (ZOFRAN) injection Intravenous, PRN, Administer over 2-5 Minutes, Starting on Sat02/04/24 at 0939, Anesthesia Intra-op $Given 02/04/2024 9:39 AM CDT 4 mg documented in this encounter Care Teams Wafer Substrate Tester Relationship Specialty Start Date End Date Pierre Dyson [address] [place] [address] PCP - General Family Medicine 02/04/24 documented as of this encounter
--- OUTSIDE RECORDS SUMMARY | 2024-03-22 14:22 | XMS_ITS | Encounter Summary ---
Author Organization [facility] Address [address] [place] [address]. 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 Diagnoses History of delivery, currently , first trimester History of delivery, currently , first trimester [O09.891] Procedures ZZC REVISION OF CERVIX,NON OBSTETRICAL MI CERCLAGE CERVIX DURING , VAGINAL CERCLAGE, CERVIX, VAGINAL APPROACH [facility] [address] [place] [id number] Phone: tel: Referral ID Status Reason Start Date Expiration Date Visits Re quested Visits Authorized [id number] 1 1 Encounter Details Date Type Department Care Team (Late st Contact Info) Description 02/04/2024 8:30 AM CDT - 02/04/2024 9:30 AM CDT Surgery [facility] [address] [place] [phone] Raine Franklin MD [address] [facility] [address] [place] [address] CERCLAGE, CERVIX, VAGINAL APPROACH Surgery Details Date/Time Status Location OR Service Patient Class Case Cl ass Case Type Trauma Case? 02/04/2024 8:30 AM Posted UR L+D UR Z LD 01 Gynecology Outpatient Elective Panel 1 Procedure LRB Anes Op Region Wound Class Comments CERCLAGE, CERVIX, VAGINAL APPROACH N/A Spinal Cervi x I-Clean Surgeon Surgeon Role Service Panel Raine Franklin MD Primary Gynecology 1 Marisol Tamayo MD Resident - Assisting Obstetrics 1 documented in this encounter Social History Tobacco [...] Answer Date Recorded Do you have housing? (Amisha g is defined as stable permanent housing and does not include staying ouside in a car, in a tent, in an abandoned building, in an overnight group home, or couch-surfing.) Yes 02/04/2024 Are you worried [...] on file documented as of this encounter Last Filed Vital Signs Vital Sign Reading Time Taken Comments Blood Pressure 102/66 02/04/2024 7:10 AM CDT Pulse 90 02/04/2024 7:10 AM CDT Temperature 37.1 C (98.7 F) 02/04/2024 7:10 AM CDT Respiratory Rate 18 02/04/2024 7:10 AM CDT Oxygen Saturation - - Inhaled Oxygen Concentration - - Weight 75.3 kg (166 lb) 02/04/2024 7:10 AM CDT Height 157.5 cm (5' 2) 02/04/2024 7:10 AM CDT Body Mass Index 30.36 02/04/2024 7:10 AM CDT documented in this encounter Discharge Instructions * Discharge Instructions* Lorna Back RN - 02/04/2024 10:53 AM CDT * Attachments The following attachments cannot be sent through Care Everywhere. * Cervical Cerclage: Post-op (Liberian) documented in this encounter Medications at Time of Discharge fluticasone-vilan terol (BREO ELLIPTA) 100-25 MCG/ACT inhaler Inhale 1 puff into the lungs daily. 04/10/2023 levothyroxine (SYNTHROID/LEVOTH ROID) 75 MCG tablet Take 75 mcg by mouth daily. 01/10/2024 predniSONE (DELTASONE) 10 MG tablet Take 10 mg by mouth daily. 02/03/2024 27-1 MG TABS Take by mouth daily. documented as of this encounter Progress Notes * Latoya Magaña RN - 02/04/2024 7:33 AM CDT Pt admit today with partner naz, and mindy, science interpreter, here for cerclage. Last eaten 02/02 1900, last liquids 0630. Report given to a bill ARROYO documented in this encounter H&P Notes * Raine Franklin MD - 02/04/2024 8:35 AM CDT [facility] OB History and Physical Miriam De La Cruz Age: [age] year old Date of : 1990 HPI: Ms. Miriam De La Cruz is a 33 year old at 13w4d by 8w4d US, who presents for scheduled cerclage. Interviewed with science interpreter. She has a history notable for delivery at 21w5d ([id number]). She had food poisoning in this then presented 2 weeks later with spotting, back pain and feelings of a vaginal bulge. She was found to be completely dilated. She shortly thereafter had PPROM and had an induction termination and subsequent uncomplicated . Pathology consistent with chorioamnionitis. She is doing well. She denies contractions, vaginal bleeding, and loss of fluid. + normal movement. Complications: - H/o CS x1 - H/o x3 - Hypothyroidism - H/o gestational diabetes - Congenital deafness Labs: Lab Results Component Value Date HGB 11.6 (L) 02/04/2024 Ultrasounds Nuchal Translucency Ultrasound (01/22/24) IMPRESSION 1. Schreiber at 11w 5d gestational age. 2. The nuchal translucency measurement is within the normal range. 3. The nasal bone was visualized. 4. Sonographic biometry agrees with gestational age predicted by assigned SYLVAIN. 5. Visualized anatomy appropriate for early gestational age. OB History OB History Para Term AB Living 5 4 3 1 0 3 SAB IAB Ectopic Multiple Live Births 0 0 0 0 4 # Outcome Date GA Lbr Brandon/2nd Weight Sex Type Anes PTL Lv 5 Current 4 08/26/23 ND 3 Term 2021 TRINITY 2 Term 06/21/18 38w5d / 06:44 3.105 kg (6 lb 13.5 oz) F CS-LTranv EPI N TRINITY Complications: Failure to Progress in Second Stage Name: ROSIE GRIMM Apgar1: 8 Apgar5: 9 1 Term 08/01/15 37w4d 30:20 / 04:02 2.778 kg (6 lb 2 oz) M Vag-Spont EPI N TRINITY Apgar1: 9 Apgar5: 9 PMHx: Past Medical History: Diagnosis Date Hypothyroidism PSHx: Past Surgical History: Procedure Laterality Date SECTION KNEE SURGERY Left ACL XR KNEE SURGERY BRIDGETTE LEFT Left Meds: Medications Prior to Admission Medication Sig Dispense Refill Last Dose fluticasone-vilanterol (BREO ELLIPTA) 100-25 MCG/ACT inhaler Inhale 1 puff into the lungs daily. levothyroxine (SYNTHROID/LEVOTHROID) 75 MCG tablet Take 75 mcg by mouth daily. predniSONE (DELTASONE) 10 MG tablet Take 10 mg by mouth daily. 27-1 MG TABS Take by mouth daily. Allergies: Allergies Allergen Reactions Cefaclor Hives, Anaphylaxis and Other (See Comments) Unknown Itchy FmHx: Family History Problem Relation Age of Onset Hypertrophic cardiomyopathy Father ROS: Complete 10-point ROS negative except as noted in HPI PE: Vit: Patient Vitals for the past 4 hrs: BP Temp Temp src Pulse Resp Height Weight 02/04/24 0710 102/66 98.7 ??F (37.1 ??C) Oral 90 18 1.575 m (5' 2) 75.3 kg (166 lb) Gen: Well-appearing, NAD, comfortable CV: Regular rate, well perfused Pulm: Breathing comfortably on room air Abd: Gravid FHT: Dop tones reassuring pre-operatively Assessment/Plan Miriam De La Cruz is a 33 year old female at 13w4d by 8w4d US here for scheduled history indicated cerclage. Complications: - H/o PTD (21w5d) 2/2 previable PPROM - H/o CS x1 - H/o x3 - Hypothyroidism - H/o gestational diabetes - Congenital deafness # Scheduled History Indicated Cerclage H/o PTD x1 (21w5d). Discussed risks of a cerclage including but not limited to: bleeding, infection(including chorioamnionitis), damage to surrounding structures including but not limited to bowel, bladder, cervix, risk of PPROM, failure of cerclage to prevent pre-viable, margy-viable or . Consent signed including consent for blood transfusion PRN. - to OR for history indicated cerclage placement - Doptones before and after the procedure - No preoperative antibiotics indicated - Discussed ideal plan for removal at 36-37 weeks gestation which can be with primary OB. If her primary OB is uncomfortable removing the cerclage, she can return to [facility] for removal. - Discussed postoperative return precautions: bleeding, loss of fluid, contractions, decreased movement, irregular vaginal discharge - Discussed pelvic rest for duration of with minimization of valsalva (avoid constipation, antitussives for URI). Discussed that bedrest is not recommended. - Plan for comprehensive ultrasound with assessment of the cervical cerclage at 19 weeks gestation. The patient was discussed with Dr. Franklin who is in agreement with the treatment plan. Marisol Tamayo MD Medical Billing Supervisor PGY-3 02/04/24 8:34 AM Physician Attestation I saw this patient with the resident and agree with the resident/fellow's findings and plan of careas documented in the note. Sánchez findings: 33 year old female at 13w4d by 8w4d US here for scheduled history indicated cerclage. Discussed the risks, benefits and alternatives of history indicated cerclage in detail. We discussed that cervical cerclage cannot prevent all births or PPROM. Miriam desires to proceed with cervical cerclage today. Discussed that following cervical cerclage that would recommend pelvic rest, avoidance of heavy lifting and strenuous exercise. Recommend follow up with MFM for comprehensive ultrasound and assessment of the cervical cerclage on 03/06/2024. Recommend cerclage removal at 36-37 weeks gestation, or earlier if any concerns for labor, PPROM or infection. 40 MINUTES SPENT BY ME on the date of service doing chart review, history, exam, documentation & further activities per the note. I have personally reviewed the following data over the past 24 hrs: 8.2 \ 11.6 (L) / 236 N/A N/A N/A / N/A N/A N/A N/A \ Raine Franklin MD Date of Service (when I saw the patient): 02/04/24 documented in this encounter Miscellaneous Notes * Op Note - Raine Franklin MD - 02/04/2024 1:09 PM CDT Operative Note: Cervical Cerclage Pre-Op Diagnosis: 1) Single intrauterine at 13w4d by 8w4d 2) History of PPROM and PTD at 21w5d Post-Op Diagnosis: 1) Same Procedure: 1) History Indicated [place] cervical cerclage, 1 sutures (knot at 12 o'clock position) Surgeons: Attending: Raine Franklin MD Resident: Marisol Tamayo MD PGY-3 Student: Carri Estrella MS4 Anesthesia: Spinal Estimated Blood Loss: 5 cc Findings: 1) Cervix 0.5 cm dilated prior to the procedure, closed following the procedure. Cervix noted to besoft at start of the procedure. 2) heart tones confirmed by doptone following the procedure Specimens: 1) None Complications: 1) None apparent History: Ms. Miriam De La Cruz is a 33 year old at 13w4d by 8w4d US, who presents for scheduled cerclage. She has a history notable for delivery at 21w5d (G4 ). She had food poisoning in this then presented 2 weeks later with spotting, back pain and feelings of a vaginal bulge. She was found to be completely dilated. She shortly thereafter PPROM'ed and had an induction termination and subsequent uncomplicated . Pathology consistent with chorioamnionitis. She was counseled on options in this including serial cervical lengths and placement of history indicated cerclage. Risks of cerclage placement were discussed and she agreed to proceed. Details of Procedure: After administration of spinal anesthesia the patient was placed in the dorsal lithotomy position and prepped and draped in the usual fashion. The bladder was drained. A weighted speculum was placed into the vagina with right angle and Breisky retractors used to visualize the cervix. The vagina andcervix were copiously cleansed with Betadine solution. The cervix was soft and multiparous. The anterior lip of the cervix was grasped with a ring forcep.A circumferential suture of #2 Ethilon was placed in the usual fashion at the cervicovaginal reflection with knot tied at 12 o'clock position. Upon evaluation of the cervix following the initial cerclage placement the anterior lip of the cervix was noted to be pulled over the external os. Given this, the initial cerclage suture was removed. A second circumferential suture of #2 Ethilon was placedin the usual fashion at the cervicovaginal reflection with knot tied at 12 o'clock position and appeared in satisfactory place (one suture left in situ). The cervix was closed following the cerclage p lacement. The bladder was drained of clear urine and a rectal exam confirmed that no sutures were present in the rectum. The cervix and vaginal vault were inspected and noted to be free of injury and hemostatic. The instruments were removed from the vagina. She tolerated her spinal anesthesia well without incident. She was subsequently transferred to the recovery room in satisfactory condition. FHT were obtained and were normal in the PACU. Sponge and needle counts were correct at the close of the case x 2. Dr. Franklin was scrubbed and present throughout the entire procedure. Marisol Tamayo MD Medical Billing Supervisor PGY-3 02/04/24 1:30 PM Physician Attestation I was present for the entire procedure and performed the cerclage placement. Raine Franklin MD Date of Service (when I saw the patient): 02/04/24 * Plan of Care - Lorna Back RN - 02/04/2024 1:07 PM CDT Goal Outcome Evaluation: Plan of Care Reviewed With: patient, spouse Patient discharged ambulatory at 1300. AVS reviewed. Return precautions emphasized. All interactions with science interpreter. * Plan of Care - Lorna Back RN - 02/04/2024 10:58 AM CDT Goal Outcome Evaluation: Plan of Care Reviewed With: patient Patient in PACU with spouse, recovering well from cerclage. All vitals stable. Denies any pain or tenderness. Tolerating juice and crackers. IV fluid infused , BSUS by provider showing FHTs 150s. anticipate transfer to [facility] shortly. documented in this encounter Plan of Treatment Scheduled Orders Name Type Priority Associated Diagnoses Orde r Schedule Regional Anesthesia for Surgery: Procedures Routine One Time for 1 Occurrences starting 02/04/2024 until 02/04/2024 documented as of this encounter Procedures Procedure Name Priority Date/Time Associated Diagnosis Comments CERCLAGE, CERVIX, VAGINAL APPROACH 02/04/2024 9:25 AM CDT History of delivery, currently , first trimester TYPE AND SCREEN, ADULT STAT 02/04/2024 8:07 AM CDT ABO/RH TYPE AND SCREEN STAT 02/04/2024 8:07 AM CDT CBC WITH PLATELETS STAT 02/04/2024 8: 07 AM CDT documented in this encounter Results * Adult Type and Screen (02/04/2024 8:07 AM CDT) ABO/RH(D) B POS 02/04/2024 8:05 AM CDT UR BLOOD BANK Antibody Screen Negative Negative 02/04/2024 8:05 AM CDT UR BLOOD BANK SPECIMEN EXPIRATION DATE [id number] 02/04/2024 8:05 AM CDT UR BLOOD BANK Blood BLOOD SPECIMEN / Unknown Venipuncture / Unknown 02/04/2024 8:07 AM CDT 02/04/2024 8:20 AM CDT us Raine Franklin MD LAB - BLOOD BANK TEST ORDE R Final Result UR BLOOD BANK [facility] Blood Components Lab [address] [facility] [place] [address], [facility] * (ABNORMAL) CBC with platelets (02/04/2024 8:07 AM CDT) Pathologist [facility] WBC Count 8.2 4.0 - 11.0 10e3/uL [...] BLOOD ORDERABLES Fin al Result UR LABORATORY [facility] Acute Care Lab [address] [facility] [place] [address] documented in this encounter Visit Diagnoses Diagnosis History of delivery, currently , first trimester documented in this encounter Administered Medications Inactive Administered Medications - up to 3 most recent administrations Medication Order MAR Action Action Date Dose Rate Site acetaminophen (TYLENOL) tablet 975 mg 975 mg, Oral, ONCE, On Sat02/04/24 at 1100, For 1 dose, Maximum acetaminophen dose from all sources = 75 mg/kg/day not to exceed 4 grams/day., Pre-procedure $Given 02/04/2024 10:54 AM CDT 975 mg dexAMETHasone (DECADRON) injection 4 mg 4 mg, Intravenous, ONCE PRN, vomiting, nausea, Administer over 1 Minutes, Starting on Sat02/04/24 at 1001, For 1 dose, Administer ONLY if dexamethasone (DECADRON) NOT given in the OR. This is Step 2 of nausea and vomiting management. IF nausea vomiting NOT resolved within 30 minutes or dexamethasone (DECADRON) was given in the OR go to Step 3 prochlorperazine (COMPAZINE)., PACU hydrALAZINE (APRESOLINE) injection 2.5-5 mg 2.5-5 mg, Intravenous, EVERY 10 MIN PRN, other, for Systolic Blood Pressure GREATER than 160 mmHg AND heart rate LESS than 60 bpm., Administer over 1 Minutes, Starting on Sat02/04/24 at 1001, Max cumulative dose = 20 mg. FOR USE IN PACU ONLY., PACU lactated ringers BOLUS 250 mL Intravenous, 250 mL, ONCE, On Sat02/04/24 at 0800, For 1 dose, Pre-procedure $New Bag 02/04/2024 8:08 AM CDT 250 mLs lidocaine (LMX4) cream Topical, EVERY 1 HOUR PRN, pain, with VAD insertion, Starting on Sat02/04/24 at 0737, Apply at least 30 minutes prior to VAD insertion in divided doses as needed for size of site for insertion. MAX Dose: 2.5 g ( of 5 g tube) Do NOT give if patient has a history of allergy to any local anesthetic or any shai product. Do NOT use both lidocaine intradermal/subcutaneous injection and the lidocaine cream on the same site., Pre-procedure lidocaine (LMX4) cream Topical, EVERY 1 HOUR PRN, pain, with VAD insertion, Starting on Sat02/04/24 at 1051, Apply at least 30 minutes prior to VAD insertion in divided doses as needed for size of site for insertion. MAX Dose: 2.5 g ( of 5 g tube) Do NOT give if patient has a history of allergy to any local anesthetic or any shai product. Do NOT use both lidocaine intradermal/subcutaneous injection and the lidocaine cream on the same site., Pre-procedure lidocaine 1 % 0.1-1 mL 0.1-1 mL, Other, EVERY 1 HOUR PRN, mild pain with VAD insertion, Starting on Sat02/04/24 at 0737, MAX dose 1 mL subcutaneous OR intradermal along the side of the vein in divided doses as needed for VAD insertion. Do NOT give if patient has a history of allergy to any local anesthetic or any shai product. Do NOT use both lidocaine intradermal/subcutaneous injection and the lidocaine cream on the same site., Pre-procedure lidocaine 1 % 0.1-1 mL 0.1-1 mL, Other, EVERY 1 HOUR PRN, mild pain with VAD insertion, Starting on Sat02/04/24 at 1051, MAX dose 1 mL subcutaneous OR intradermal along the side of the vein in divided doses as needed for VAD insertion. Do NOT give if patient has a history of allergy to any local anesthetic or any shai product. Do NOT use both lidocaine intradermal/subcutaneous injection and the lidocaine cream on the same site., Pre-procedure naloxone (NARCAN) injection 0.1 mg 0.1 mg, Intravenous, EVERY 2 MIN PRN, opioid reversal, Starting on Sat02/04/24 at 1001, Notify Anesthesia Provider when administering naloxone (NARCAN) for unintended sedation or respiratory depression IF all three of the following criteria are met: 1. Respiratory rate LESS than or EQUAL to 8. 2. SaO2 is LESS than 92% and/or end-tidal CO2 is GREATER than 50. 3. Patient is receiving an opioid, has unintended sedation assessed as RASS (-4) or (-5) and patient is NOT currently on mechanical ventilation. RASS scale (-4) is deep sedation with no response to voice but movement or eye opening to physical stimulation. RASS scale (-5) is unarousable. Notify Anesthesia Provider PRIOR to administering additional opioids if naloxone (NARCAN) given. Monitor in Phase I for 2 hours after last naloxone (NARCAN) dose PRIOR to transfer to Patient Care Unit or Phase II., PACU ondansetron (ZOFRAN ODT) ODT tab 4 mg 4 mg, Oral, EVERY 30 MIN PRN, nausea, Starting on Sat02/04/24 at 1001, For 2 doses, Administer if NO vascular access present. This is Step 1 of nausea and vomiting management. If nausea/vomiting not resolved in 15 minutes, go to Step 2 dexamethasone (DECADRON) IV. MAX total dose = 8 mg, including OR dosing. With dry hands, peel back foil backing and gently remove tablet. Do not push oral disintegrating tablet through foil backing. Administer immediately on tongue and oral disintegrating tablet dissolves in seconds, then swallow with saliva. Liquid not required., PACU ondansetron (ZOFRAN) injection 4 mg 4 mg, Intravenous, EVERY 30 MIN PRN, nausea, Administer over 2-5 Minutes, Starting on Sat02/04/24 at 1001, For 2 doses, This is Step 1 of nausea and vomiting management. If nausea/vomiting not resolved in 15 minutes, then go to Step 2 dexamethasone (DECADRON) IV. MAX total dose = 8 mg, including OR dosing., PACU prochlorperazine (COMPAZINE) injection 5 mg 5 mg, Intravenous, EVERY 6 HOURS PRN, nausea, vomiting, Administer over 1-2 Minutes, Starting on Sat02/04/24 at 1001, This is Step 3 of the nausea and vomiting protocol. If nausea/vomitting not resolved in 15-30 minutes, notify Provider., PACU sodium chloride (PF) 0.9% PF flush 3 mL 3 mL, Intracatheter, EVERY 8 HOURS, First dose on Sat02/04/24 at 0800, to lock peripheral IV dormant line, Pre-procedure sodium chloride (PF) 0.9% PF flush 3 mL 3 mL, Intracatheter, EVERY 1 MIN PRN, line flush, other, to ensure patency or to lock dormant line, Starting on Sat02/04/24 at 0737, Pre-procedure sodium chloride (PF) 0.9% PF flush 3 mL 3 mL, Intracatheter, EVERY 8 HOURS, First dose on Sat02/04/24 at 1100, to lock peripheral IV dormant line, Pre-procedure sodium chloride (PF) 0.9% PF flush 3 mL 3 mL, Intracatheter, EVERY 1 MIN PRN, line flush, other, to ensure patency or to lock dormant line, Starting on Sat02/04/24 at 1051, Pre-procedure sodium citrate-citric acid (BICITRA) solution 15 mL 15 mL, Oral, PRE-OP/PRE-PROCEDURE, Starting on Sat02/04/24 at 0737, For 1 dose, Give in Pre-Op for gastric pH neutralization., Pre-procedure $Given 02/04/2024 9:20 AM CDT 15 mLs documented in this encounter Active and Recently Administered Medications Times are shown in CDT. Scheduled Medication Order 02/02/2024 02/03/2024 02/04/2024 acetaminophen (TYLENOL) tablet 975 mg (COMPLETED) 975 mg, Oral, ONCE, On Sat02/04/24 at 1100, For 1 dose, Maximum acetaminophen dose from all sources = 75 mg/kg/day not to exceed 4 grams/day., Pre-procedure 1054 ($Given - Provi analilia: Lorna Back RN) lactated ringers BOLUS 250 mL (COMPLETED) Intravenous, 250 mL, ONCE, On Sat02/04/24 at 0800, For 1 dose, Pre-procedure 0808 ($New Bag - Pro vider: Lorna Back RN) sodium chloride (PF) 0.9% PF flush 3 mL 3 mL, Intracatheter, EVERY 8 HOURS, First dose on Sat02/04/24 at 0800, to lock peripheral IV dormant line, Pre-procedure 0837 (Hold - Provide r: Lorna Back RN - Reason: Order parameters not met) sodium chloride (PF) 0.9% PF flush 3 mL 3 mL, Intracatheter, EVERY 8 HOURS, First dose on Sat02/04/24 at 1100, to lock peripheral IV dormant line, Pre-procedure 1052 (Hold - Provide r: Lorna Back RN - Reason: Order parameters not met) sodium citrate-citric acid (BICITRA) solution 15 mL (COMPLETED) 15 mL, Oral, PRE-OP/PRE-PROCEDURE, Starting on Sat02/04/24 at 0737, For 1 dose, Give in Pre-Op for gastric pH neutralization., Pre-procedure 0920 ($Given - Provi analilia: Lorna Back RN) sodium citrate-citric acid (BICITRA) solution 30 mL 30 mL, Oral, ONCE, On Sat02/04/24 at 1100, For 1 dose, Only for gastric pH neutralization. Give 45 minutes pre-op before transporting to surgery., Pre-procedure 1052 (Hold - Provide r: Lorna Back RN - Reason: Order parameters not met) PRN Medication Order 02/02/2024 02/03/2024 02/04/2024 dexAMETHasone (DECADRON) injection 4 mg 4 mg, Intravenous, ONCE PRN, vomiting, nausea, Administer over 1 Minutes, Starting on Sat02/04/24 at 1001, For 1 dose, Administer ONLY if dexamethasone (DECADRON) NOT given in the OR. This is Step 2 of nausea and vomiting management. IF nausea vomiting NOT resolved within 30 minutes or dexamethasone (DECADRON) was given in the OR go to Step 3 prochlorperazine (COMPAZINE)., PACU hydrALAZINE (APRESOLINE) injection 2.5-5 mg 2.5-5 mg, Intravenous, EVERY 10 MIN PRN, other, for Systolic Blood Pressure GREATER than 160 mmHg AND heart rate LESS than 60 bpm., Administer over 1 Minutes, Starting on Sat02/04/24 at 1001, Max cumulative dose = 20 mg. FOR USE IN PACU ONLY., PACU lidocaine (LMX4) cream Topical, EVERY 1 HOUR PRN, pain, with VAD insertion, Starting on Sat02/04/24 at 0737, Apply at least 30 minutes prior to VAD insertion in divided doses as needed for size of site for insertion. MAX Dose: 2.5 g ( of 5 g tube) Do NOT give if patient has a history of allergy to any local anesthetic or any shai product. Do NOT use both lidocaine intradermal/subcutaneous injection and the lidocaine cream on the same site., Pre-procedure lidocaine (LMX4) cream Topical, EVERY 1 HOUR PRN, pain, with VAD insertion, Starting on Sat02/04/24 at 1051, Apply at least 30 minutes prior to VAD insertion in divided doses as needed for size of site for insertion. MAX Dose: 2.5 g ( of 5 g tube) Do NOT give if patient has a history of allergy to any local anesthetic or any shai product. Do NOT use both lidocaine intradermal/subcutaneous injection and the lidocaine cream on the same site., Pre-procedure lidocaine 1 % 0.1-1 mL 0.1-1 mL, Other, EVERY 1 HOUR PRN, mild pain with VAD insertion, Starting on Sat02/04/24 at 0737, MAX dose 1 mL subcutaneous OR intradermal along the side of the vein in divided doses as needed for VAD insertion. Do NOT give if patient has a history of allergy to any local anesthetic or any shai product. Do NOT use both lidocaine intradermal/subcutaneous injection and the lidocaine cream on the same site., Pre-procedure lidocaine 1 % 0.1-1 mL 0.1-1 mL, Other, EVERY 1 HOUR PRN, mild pain with VAD insertion, Starting on Sat02/04/24 at 1051, MAX dose 1 mL subcutaneous OR intradermal along the side of the vein in divided doses as needed for VAD insertion. Do NOT give if patient has a history of allergy to any local anesthetic or any shai product. Do NOT use both lidocaine intradermal/subcutaneous injection and the lidocaine cream on the same site., Pre-procedure naloxone (NARCAN) injection 0.1 mg 0.1 mg, Intravenous, EVERY 2 MIN PRN, opioid reversal, Starting on Sat02/04/24 at 1001, Notify Anesthesia Provider when administering naloxone (NARCAN) for unintended sedation or respiratory depression IF all three of the following criteria are met: 1. Respiratory rate LESS than or EQUAL to 8. 2. SaO2 is LESS than 92% and/or end-tidal CO2 is GREATER than 50. 3. Patient is receiving an opioid, has unintended sedation assessed as RASS (-4) or (-5) and patient is NOT currently on mechanical ventilation. RASS scale (-4) is deep sedation with no response to voice but movement or eye opening to physical stimulation. RASS scale (-5) is unarousable. Notify Anesthesia Provider PRIOR to administering additional opioids if naloxone (NARCAN) given. Monitor in Phase I for 2 hours after last naloxone (NARCAN) dose PRIOR to transfer to Patient Care Unit or Phase II., PACU ondansetron (ZOFRAN ODT) ODT tab 4 mg(Linked Group 1) 4 mg, Oral, EVERY 30 MIN PRN, nausea, Starting on Sat02/04/24 at 1001, For 2 doses, Administer if NO vascular access present. This is Step 1 of nausea and vomiting management. If nausea/vomiting not resolved in 15 minutes, go to Step 2 dexamethasone (DECADRON) IV. MAX total dose = 8 mg, including OR dosing. With dry hands, peel back foil backing and gently remove tablet. Do not push oral disintegrating tablet through foil backing. Administer immediately on tongue and oral disintegrating tablet dissolves in seconds, then swallow with saliva. Liquid not required., PACU ondansetron (ZOFRAN) injection 4 mg(Linked Group 1) 4 mg, Intravenous, EVERY 30 MIN PRN, nausea, Administer over 2-5 Minutes, Starting on Sat02/04/24 at 1001, For 2 doses, This is Step 1 of nausea and vomiting management. If nausea/vomiting not resolved in 15 minutes, then go to Step 2 dexamethasone (DECADRON) IV. MAX total dose = 8 mg, including OR dosing., PACU prochlorperazine (COMPAZINE) injection 5 mg 5 mg, Intravenous, EVERY 6 HOURS PRN, nausea, vomiting, Administer over 1-2 Minutes, Starting on Sat02/04/24 at 1001, This is Step 3 of the nausea and vomiting protocol. If nausea/vomitting not resolved in 15-30 minutes, notify Provider., PACU sodium chloride (PF) 0.9% PF flush 3 mL 3 mL, Intracatheter, EVERY 1 MIN PRN, line flush, other, to ensure patency or to lock dormant line, Starting on Sat02/04/24 at 0737, Pre-procedure sodium chloride (PF) 0.9% PF flush 3 mL 3 mL, Intracatheter, EVERY 1 MIN PRN, line flush, other, to ensure patency or to lock dormant line, Starting on Sat02/04/24 at 1051, Pre-procedure Linked Groups Order Group 1: ondansetron (ZOFRAN ODT) ODT tab 4 mgJump to med 4 mg, Oral, EVERY 30 MIN PRN, nausea, Starting on Sat02/04/24 at 1001, For 2 doses, Administer if NO vascular access present. This is Step 1 of nausea and vomiting management. If nausea/vomiting not resolved in 15 minutes, go to Step 2 dexamethasone (DECADRON) IV. MAX total dose = 8 mg, including OR dosing. With dry hands, peel back foil backing and gently remove tablet. Do not push oral disintegrating tablet through foil backing. Administer immediately on tongue and oral disintegrating tablet dissolves in seconds, then swallow with saliva. Liquid not required., PACU Or ondansetron (ZOFRAN) injection 4 mgJump to med 4 mg, Intravenous, EVERY 30 MIN PRN, nausea, Administer over 2-5 Minutes, Starting on Sat02/04/24 at 1001, For 2 doses, This is Step 1 of nausea and vomiting management. If nausea/vomiting not resolved in 15 minutes, then go to Step 2 dexamethasone (DECADRON) IV. MAX total dose = 8 mg, including OR dosing., PACU documented in this encounter Care Teams Nailhead Operator Relationship Specialty Start Date End Date Pierre Dyson [address] [place] [address] PCP - General Family Medicine 02/04/24 documented as of this encounter
--- OUTSIDE RECORDS SUMMARY | 2024-03-22 14:22 | XMS_ITS | Encounter Summary ---
Author Organization [place] Address [address] [place] [address]. [place] [address] Care Team Providers Care Certified Real Estate Appraiser Name Role Phone No Ref-Primary, Physician Primary Care Provider Encounter Details Date Type Department Care Team (Late st Contact Info) Description 01/22/2024 10:15 AM CDT Office Visit [facility] [employer]ashing Machine [employer] [facility] [address] [place] [phone] Shona Oakes Social History Tobacco Use Types Packs/Day Years [...] on filedocumented in this encounter Care Teams Certified Real Estate Appraiser Relationship Specialty Start Date End Date No Ref-Primary, Physician PCP - General 01/01/24 02/03/24 documented as of this encounter
--- OUTSIDE RECORDS SUMMARY | 2024-03-22 14:22 | XMS_ITS | Encounter Summary ---
Author Organization [place] Address [address] [place] [address] Care Team Providers Care Buffer Inflated Pad Name Role Phone Pierre Dyson Primary Care Provider [phone] Silvana Avilez MD Unavailable [phone] Reason for Visit * Reason Comments Ultrasound L2/TV-Hx PTD with ne onatal demise, cerclage in place Encounter Details Date Type Department Care Team (Late st Contact Info) Description 03/06/2024 9:15 AM SEWING MACHINE ADJUSTER Office Visit [facility] [place] [address] [facility] [address] [place] [address] Sonja Martinez MD [address] [place] [address] related condition in second trimester (Primary Dx); Cervical cerclage suture present in second trimester; History of delivery, currently ; Hypothyroidism affecting in second trimester; Bilateral hearing loss, unspecified hearing loss type Social History Tobacco Use Types Packs/Day Years [...] in an abandoned building, in an overnight senior care, or couch-surfing.) Yes 02/04/2024 Are you worried [...] on file documented as of this encounter Progress Notes * Sonja Martinez MD - 03/06/2024 9:15 AM CST The patient was seen for an ultrasound in the Maternal[facility] Medicine Center today. For a detailed report of the ultrasound examination, please see the ultrasound report which can be found under the imaging tab. If you have questions regarding today's evaluation or if we can be of further service, please contact the Maternal- Medicine Center. Sonja Martinez MD Bioprocess Development Engineer, MORTGAGE ANALYST Maternal- Medicine NG MACHINE ADJUSTER documented in this encounter Nursing Notes * Mary Montoya RN - 03/06/2024 9:15 AM CST Patient presents to [facility] for L2/TV at 18w0d due to hx PTD with demise, cerclage in place. Denies LOF, vaginal bleeding or cramping/contractions. Confirmed with Dr. Franklin that she wanted a TVtoday. Dr. Franklin does want a TV along with the L2 today. SBAR given to [facility] MD, see their note in Epic. NG MACHINE ADJUSTER NG MACHINE ADJUSTER documented in this encounter Plan of Treatment Not on file documented as of this encounter Visit Diagnoses Diagnosis related condition in second trimester- Primary Unspecified complication of , antepartum Cervical cerclage suture present in second trimester History of delivery, currently with history of pre-term labor Hypothyroidism affecting in second trimester Bilateral hearing loss, unspecified hearing loss type documented in this encounter Care Teams Buffer Inflated Pad Relationship Specialty Start Date End Date Pierre Dyson [address] [place] [address] PCP - General Family Medicine 02/04/24 Silvana Avilez MD [address] [place] [id number] Assigned OBGYN Provider 02/19/24 documented as of this encounter
--- OUTSIDE RECORDS SUMMARY | 2024-03-22 14:22 | XMS_ITS | Encounter Summary ---
Author Organization [place] Address [facility] [place] [address] Care Team Providers Care Independent Video Producer Name Role Phone Pierre Dyson Primary Care Provider [phone] Reason for Visit * Reason Onset Date Comments Letter for School/Work 02/06/2024 Encounter Details Date Type Department Care Team (Late st Contact Info) Description 02/06/2024 Telephone [facility] [place] [address] [place], [place] [address] Mery Balbuena, RN Letter for School/Work Social History Tobacco Use Types Packs/Day Years [...] in an abandoned building, in an overnight detention, or couch-surfing.) Yes 02/04/2024 Are you worried [...] encounter Miscellaneous Notes * Telephone Encounter - Mery Balbuena RN - 02/06/2024 12:23 PM CDT Discussed work release and lifting guidelines for Mir[place] with Dr. Franklin. Letter written per instruction. documented in this encounter Plan of Treatment Not on file documented as of this encounter Visit Diagnoses Not on filedocumented in this encounter Care Teams Independent Video Producer Relationship Specialty Start Date End Date Pierre Dyson [address] [place] [address] PCP - General Family Medicine 02/04/24 documented as of this encounter
--- OUTSIDE RECORDS SUMMARY | 2024-03-22 14:22 | XMS_ITS | Encounter Summary ---
Author Organization [place] Address [facility] [place] [address] Care Team Providers Care Bottle Tester Name Role Phone No Ref-Primary, Physician Primary Care Provider Encounter Details Date Type Department Care Team (Late st Contact Info) Description 01/22/2024 12:[address] [facility] [address] [place] [address] Silvana Avilez MD [address] [place] [address] [address] [place] [address] Encounter for screening of mother; Encounter of female for testing for genetic disease carrier status for procreative management Social History Tobacco Use Types Packs/Day Years [...] Procedure Name Priority Date/Time Associated Diagnosis Comments MYRIAD NON-INVASIVE SCREENING PREQUEL Routine 01/22/2024 12:57 PM CDT Encounter for screening of mother MYRIAD CARRIER SCREENING FORESIGHT Routine 01/22/2024 12:57 PM CDT Encounter of female for testing for genetic disease carrier status for procreative management documented in this encounter Results * (ABNORMAL) Myriad Carrier Screening???Foresight (01/22/2024 12:57 PM CDT) See Scanned Result MYRIAD CARRIER SCREENING FORESIGHT-Sca nned(A) 02/07/2024 11:15 AM CDT [employer] Blood STRUCTURE OF LEFT UPPER LIMB / Unknown Venipuncture / Unknown 01/22/2024 12:57 PM CDT 01/22/2024 12:57 PM CDT Cadence Jones [employer] - BLOOD ORDERABLES Final Result Performing Organization Address City/[facility]/ZIP Co de Phone Number [employer] [address] [place] [address], [facility] [place] [phone] * Myriad Non-Invasive Screening???Prequel (01/22/2024 12:57 PM CDT) See Scanned Result MYRIAD NON-INVASIVE SCREENING PREQUEL-Scann ed 02/03/2024 9:13 AM CDT [employer] Blood STRUCTURE OF LEFT UPPER LIMB / Unknown Venipuncture / Unknown 01/22/2024 12:57 PM CDT 01/22/2024 12:57 PM CDT Cadence Jones [facility] - BLOOD ORDERABLES Final Result [employer] [address] [place] [address], [facility] [place] [phone] documented in this encounter Visit Diagnoses Diagnosis Encounter for screening of mother Unspecified screening Encounter of female for testing for genetic disease carrier status for procreative management Testing of female for genetic disease carrier status documented in this encounter Care Teams Bottle Tester Relationship Specialty Start Date End Date No Ref-Primary, Physician PCP - General 01/01/24 02/03/24 documented as of this encounter
--- OUTSIDE RECORDS SUMMARY | 2024-03-22 14:22 | XMS_ITS | Encounter Summary ---
Author Organization [place] Address [facility] [place] [address] Care Team Providers Care Rodeo Performer Name Role Phone No Ref-Primary, Physician Primary Care Provider Reason for Visit * Reason Onset Date Comments Appointment 01/23/2024 Encounter Details Date Type Department Care Team (Late st Contact Info) Description 01/23/2024 Telephone [facility] [address] [place] [address] Sravani Delgado, CRUZ Appointment Social History Tobacco [...] Telephone Encounter - Sravani Delgado RN - 01/23/2024 4:07 PM CDT LVM on both phone numbers available for patient to call back [facility] P[facility] line to schedule cerclage. Dates available 02/03 or 02/04 @1030, arrival at 0830 rSavani Delgado RN documented in this encounter Plan of Treatment Not on file documented as of this encounter Visit Diagnoses Not on filedocumented in this encounter Care Teams Rodeo Performer Relationship Specialty Start Date End Date No Ref-Primary, Physician PCP - General 01/01/24 02/03/24 documented as of this encounter
--- OUTSIDE RECORDS SUMMARY | 2024-03-22 14:22 | XMS_ITS | Encounter Summary ---
Author Organization [place] Address [address] [place] [address] Care Team Providers Care Buttoner Name Role Phone No Ref-Primary, Physician Primary Care Provider Encounter Details Date Type Department Care Team (Late st Contact Info) Description 01/22/2024 Orders Only [facility] [place] [address] [place] [address] Makenzie Bowser RN History of delivery, currently , first trimester (Primary Dx) Social History Tobacco Use Types [...] as of this encounter Progress Notes * Makenzie Bowser RN - 01/22/2024 12:35 PM CDT Called pt to offer two dates for surgery, left VM with nonspecific procedure information but requested callback to confirm dates between 02/03 or 02/04 at 1030 (0830 arrival). Left callback number. documented in this encounter Plan of Treatment Not on file documented as of this encounter Visit Diagnoses Diagnosis History of delivery, currently , first trimester- Primary documented in this encounter Care Teams Buttoner Relationship Specialty Start Date End Date No Ref-Primary, Physician PCP - General 01/01/24 02/03/24 documented as of this encounter
--- OUTSIDE RECORDS SUMMARY | 2024-03-22 14:22 | XMS_ITS | Encounter Summary ---
Author Organization [place] Address [address] [place] [address]. [place] [address] Care Team Providers Care Health Tech Name Role Phone Pierre Dyson Primary Care Provider [phone] Silvana Avilez MD Unavailable Encounter Details Date Type Department Care Team (Late st Contact Info) Description 03/06/2024 8:45 AM RETAIL LEASING AGENT Office Visit [facility] [employer] [facility] [address] [place] [address] Marisol Dhaliwal Social History Tobacco Use [...] an abandoned building, in an overnight senior living, or couch-surfing.) Yes 02/04/2024 Are you worried [...] on filedocumented in this encounter Care Teams Health Tech Relationship Specialty Start Date End Date Pierre Dyson [address] [place] [address] PCP - General Family Medicine 02/04/24 Silvana Avilez MD [address] [facility] [address] [place] [address] Assigned OBGYN Provider 02/19/24 documented as of this encounter
--- OUTSIDE RECORDS SUMMARY | 2024-03-22 14:22 | XMS_ITS | Encounter Summary ---
Author Organization [place] Address [address] [place] [address] Care Team Providers Care Simulation Engineer Name Role Phone Pierre Dyson Primary Care Provider [phone] Silvana Avilez MD Unavailable [phone] Reason for Referral * Diagnostic Imaging Ultrasound (Routine) - Pending Review Specialty Diagnoses / Procedures Referred By Contac t Referred To Contact Radiology. Diagnoses History of delivery, currently , first trimester Procedures [facility] US Comprehensive Single Silvana Avilez MD [address] [place] [address] [place] [address] Phone: tel: fax: Referral ID Status Reason Start Date Expiration Date V isits Requested Visits Authorized [id number] Pending Review 01/22/2024 01/21/2025 1 1 ICATION ANALYST Reason for Visit * Diagnostic Imaging Ultrasound (Routine) - Pending Review Specialty Diagnoses / Procedures Referred By Contac t Referred To Contact Radiology. Diagnoses History of delivery, currently , first trimester Procedures [facility] US Comprehensive Single Silvana Avilez MD [address] [place] [address] [place] [address] Phone: tel: fax: Referral ID Status Reason Start Date Expiration Date V isits Requested Visits Authorized [id number] Pending Review 01/22/2024 01/21/2025 1 1 Encounter Details Date Type Department Care Team (Latest Contact Info) Description 03/06/2024 8:41 AM APPLICATION ANALYST - 03/06/2024 11:59 PM APPLICATION ANALYST Hospital Encounter [facility] Maternal Medicine [facility] [address] [facility] [address] [place] [address] Sonja Martinez MD [address] [place] [address] History of delivery, currently , first trimester [...] mouth daily. documented as of this encounter Plan of Treatment Not on file documented as of this encounter Procedures Procedure Name Priority Date/Time Associated Diagnosis Comments [facility] US COMPREHENSIVE SINGLE Routine 03/06/2024 9:46 AM APPLICATION ANALYST History of delivery, currently , first trimester documented in this encounter Results * [facility] US Comprehensive Single (03/06/2024 9:46 AM APPLICATION ANALYST) Anatomical Region Laterality Modality Ultrasound 03/06/2024 8:46 AM APPLICATION ANALYST Impressions 03/06/2024 5:55 PM APPLICATION ANALYST IMPRESSION ----- 1. Schreiber at 18w 0d [...] a circumvallate placenta. Narrative 03/06/2024 5:55 PM APPLICATION ANALYST Comprehensive ----- Pat. Name: KENNEDY PRICE Study Date: 03/06/2024 8:46am Pat. NO: [id number] Referring MD: RAFY CONRAD Site: Radio Journalist: Key Fam RDMS : 1990 Age: 33 [...] 4d Hadlock Humerus 26.3 mm 18w 2d [facility] Weight Calculation: EFW 243 g 75% Hadlock EFW (lb,oz) 0 lb 9 oz EFW by Hadlock ([id number]) Head / Face / Neck Biometry: Prisoner Classification Interviewer 7.4 mm CM 3.8 mm Nasal bone 5.8 mm ANATOMY ----- The following structures appear normal: Head / Neck Cranium. Head size. Head shape. Lateral ventricles. Choroid plexus. Midline falx. Cavum septi pellucidi. Cerebellum. Cisterna magna. Parenchyma. Thalami. Vermis. Neck. Nuchal fold. Face Lips. Profile. Nose. Maxilla. Mandible. Orbits. Lens. Heart / Thorax 4-chamber view. RVOT view. LVOT view. 3-vessel view. 2-akcpor-vkjlunq view. Situs. Aortic arch view. Bicaval view. [...] medical record, and communicating with other health daycare assistant and/or care coordination. Procedure Note Sonja Martinez MD - 03/06/2024 Comprehensive ----- Pat. Name: KENNEDY PRICE Study Date: 03/06/2024 8:46am Pat. NO: [id number] Referring MD: RAFY CONRAD Site: Radio Journalist: Key Fam RDMS : 1990 Age: 33 [...] EFW (lb,oz) 0 lb 9oz EFW by Hadlock([id number]) Head / Face / Neck Biometry: Prisoner Classification Interviewer 7.4mm CM 3.8mm Nasal bone 5.8mm ANATOMY ----- The following structures appear normal: Head / Neck Cranium. Head size. Head shape.Lateral ventricles. Choroid plexus. Midline falx. Cavum septi pellucidi.Cerebellum. Cisterna magna. Parenchyma. Thalami. Vermis. Neck. Nuchal fold. Face Lips. Profile. Nose. Maxilla.Mandible. Orbits. Lens. Heart / Thorax 4-chamber view. RVOT view. LVOT view.3-vessel view. 4-nczwnt-niujudf view. Situs. Aortic arch view. Bicavalview. Ductal [...] electronic medical record, andcommunicating with other health daycare assistant and/or carecoordination. IMPRESSION ----- 1. Schreiber [...] a circumvallate placenta. us Raine Franklin MD [facility] ORDERABLES Edit ed Result - Final documented in this encounter Visit Diagnoses Diagnosis History of delivery, currently , first trimester documented in this encounter Care Teams Simulation Engineer Relationship Specialty Start Date End Date Pierre Dyson [address] [place] [address] PCP - General Family Medicine 02/04/24 Silvana Avilez MD [address] [facility] [address] [place], [place] [address] Assigned OBGYN Provider 02/19/24 documented as of this encounter
--- OUTSIDE RECORDS SUMMARY | 2024-03-22 14:22 | XMS_ITS | Encounter Summary ---
Author Organization [place] Address [address] [place] [address]. [place] [address] Care Team Providers Care Kiss Machine Operator Name Role Phone Pierre Dyson Primary Care Provider [phone] Reason for Visit * Reason Comments CERCLAGE * Auth/Cert (Routine) Specialty Diagnoses / Procedures Referred By Contac t Referred To Contact paper testing supervisor Diagnoses History of delivery, currently , first trimester History of delivery, currently , first trimester [O09.891] Procedures ZZC REVISION OF CERVIX,NON OBSTETRICAL MO CERCLAGE CERVIX DURING , VAGINAL CERCLAGE, CERVIX, VAGINAL APPROACH [facility] [address] [place] [phone] Phone: tel: Referral ID Status Reason Start Date Expiration Date Visits Re quested Visits Authorized [id number] 1 1 Encounter Details Date Type Department Care Team (Latest Contact Info) Description 02/04/2024 6:40 AM CDT - 02/04/2024 1:09 PM CDT Hospital Encounter [facility] [address] [place] [phone] Raine Franklin MD [address] [place] [address] Discharge Disposition: Home or Self Care Social [...] Date Recorded Do you have housing? (Amisha patiño is defined as stable permanent housing and does not include staying ouside in a car, in a tent, in an abandoned building, in an overnight custodial, or couch-surfing.) Yes 02/04/2024 Are you worried [...] through Care Everywhere. * Cervical Cerclage: Post-op ([place]) documented in this encounter Medications at Time [...] admit today with partner naz, and mindy, winemaker, here for cerclage. Last eaten 02/02 1900, last liquids 0630. Report given to a bill ARROYO documented in this encounter H&P Notes * Raine Franklin MD - 02/04/2024 8:35 AM CDT [facility] OB History and Physical Miriam De La Cruz Age: [age] year old Date of : 1990 HPI: Ms. Miriam De La Cruz is a 33 year old at 13w4d by 8w4d US, who presents for scheduled cerclage. Interviewed with winemaker. She has a history notable for delivery at 21w5d ([id number]). She had food poisoning in this then [...] removing the cerclage, she can return to [facility] for removal. - Discussed postoperative [...] with the treatment plan. Marisol Tamayo MD Buttermilk Drier Operator PGY-3 02/04/24 8:34 AM Physician Attestation I [...] throughout the entire procedure. Marisol Tamayo MD Buttermilk Drier Operator PGY-3 02/04/24 1:30 PM Physician Attestation I [...] reviewed. Return precautions emphasized. All interactions with winemaker. * Plan of Care - Lorna Back RN - 02/04/2024 10:58 AM CDT Goal Outcome Evaluation: Plan of Care Reviewed With: patient Patient in PACU with spouse, recovering well from cerclage. All vitals stable. Denies any pain or tenderness. Tolerating juice and crackers. IV fluid infused , BSUS by provider showing FHTs 150s. anticipate transfer to [facility]. documented in this encounter Plan of [...] AM CDT CBC WITH PLATELETS STAT 02/04/2024 8 :07 AM CDT documented in this encounter Results * Adult Type and Screen (02/04/2024 8:07 AM CDT) ABO/RH(D) B POS 02/04/2024 8:05 AM CDT UR BLOOD BANK Antibody Screen Negative Negative 02/04/2024 8:05 AM CDT UR BLOOD BANK SPECIMEN EXPIRATION DATE [id number] 02/04/2024 8:05 AM CDT UR BLOOD BANK Blood BLOOD SPECIMEN / Unknown Venipuncture / Unknown 02/04/2024 8:07 AM CDT 02/04/2024 8:20 AM CDT us Raine Franklin MD LAB - BLOOD BANK TEST ORDE R Final Result BLOOD BANK [facility] [address] [facility] [place] [address] * (ABNORMAL) CBC with platelets [...] ORDERABLES Fin al Result UR LABORATORY [facility] Acute Care Lab [address] [facility] [place] [address] documented in this encounter Visit Diagnoses Diagnosis documented in this encounter Administered Medications Inactive [...] PACU documented in this encounter Care Teams Kiss Machine Operator Relationship Specialty Start Date End Date Pierre Dyson [address] [facility] [address] PCP - General Family Medicine 02/04/24 documented as of this encounter
--- OUTSIDE RECORDS SUMMARY | 2024-03-22 14:22 | XMS_ITS | Encounter Summary ---
Author Organization [place] Address [address] [place] [address]. [place] [address] Care Team Providers Care Bun Icer Name Role Phone Pierre Dyson Primary Care Provider [phone] Encounter Details Date Type Department Care Team (Late st Contact Info) Description 02/04/2024 6:30 AM CDT Office Visit [facility] [address] [place] [phone] [place] Social History Tobacco Use Types Packs/Day Years [...] in an abandoned building, in an overnight snf, or couch-surfing.) Yes 02/04/2024 Are you worried [...] on filedocumented in this encounter Care Teams Bun Icer Relationship Specialty Start Date End Date Pierre Dyson [address] [facility] [place] [address] PCP - General Family Medicine 02/04/24 documented as of this encounter
--- OUTSIDE RECORDS SUMMARY | 2024-03-22 14:22 | XMS_ITS | Encounter Summary ---
Author Organization [place] Address [address] [place] [address]. [place] [address] Care Team Providers Care Building Maintenance Worker Name Role Phone Pierre Dyson Primary Care Provider [phone] Encounter Details Date Type Department Care Team (Late st Contact Info) Description 02/04/2024 8:30 AM CDT Hospital Encounter [facility] [address] [place] [address] Raine Franklin MD [address] [place] [address] Social History Tobacco Use Types Packs/Day Years [...] in an abandoned building, in an overnight retirement, or couch-surfing.) Yes 02/04/2024 Are you worried [...] as of this encounter Progress Notes * Raine Franklin MD - 02/04/2024 2:00 PM CDT MFM Brief Progress Note Called to perform bedside ultrasound for heart tones following the cervical cerclage placement as unable to obtain bedside Doptones. cardiac activity confirmed with a heart rate in the 150's. The cervical cerclage was well visualized on transabdominal imaging and appeared in satisfactory place. Plan to discharge home today when meets postoperative goals. Raine Franklin MD Specialist in Maternal- Medicine documented in this encounter Plan of Treatment Not on file documented as of this encounter Visit Diagnoses Not on filedocumented in this encounter Care Teams Building Maintenance Worker Relationship Specialty Start Date End Date Pierre Dyson [address] [facility] [place] [address] PCP - General Family Medicine 02/04/24 documented as of this encounter
--- OUTSIDE RECORDS SUMMARY | 2024-03-22 14:22 | XMS_ITS | Encounter Summary ---
Author Organization [place] Address [facility] [place] [address] Care Team Providers Care Yarn Carrier Name Role Phone Pierre Dyson Primary Care Provider [phone] Silvana Avilez MD Unavailable [phone] Encounter Details Date Type Department Care Team (Latest Contact Info) Description 03/01/2024 Travel Social History Tobacco Use Types Packs/Day Years [...] in an abandoned building, in an overnight fci, or couch-surfing.) Yes 02/04/2024 Are you worried [...] on filedocumented in this encounter Care Teams Yarn Carrier Relationship Specialty Start Date End Date Pierre Dyson [address] [place] [address] PCP - General Family Medicine 02/04/24 Silvana Avilez MD [address] [place] [address] Assigned OBGYN Provider 02/19/24 documented as of this encounter
--- OUTSIDE RECORDS SUMMARY | 2024-03-22 14:22 | XMS_ITS | Encounter Summary ---
Author Organization [place] Address [address] [place] [address]. [place] [address] Care Team Providers Care Machine Stuffer Automatic Name Role Phone No Ref-Primary, Physician Primary Care Provider Encounter Details Date Type Department Care Team (Latest Contact Info) Description 01/22/2024 Travel Social History Tobacco Use Types Packs/Day [...] on filedocumented in this encounter Care Teams Machine Stuffer Automatic Relationship Specialty Start Date End Date No Ref-Primary, Physician PCP - General 01/01/24 02/03/24 documented as of this encounter
--- OUTSIDE RECORDS SUMMARY | 2024-03-22 14:22 | XMS_ITS | Encounter Summary ---
Author Organization [place] Address [address] [facility] [place] [address] Care Team Providers Care Servicer Coin Machines Name Role Phone No Ref-Primary, Physician Primary Care Provider Pierre Dyson Primary Care Provider [phone] Silvana Avilez MD Unavailable [phone] Sonja Martinez MD Unavailable [phone] Encounter Details Date Type Department Care Team (Late st Contact Info) Description 02/03/2024 MyC Medical Advice [facility] [place] [address] [facility] [address] [place] [address] Cadence Jones, [address] [address] [place] [address] Social History Tobacco Use Types [...] on filedocumented in this encounter Care Teams Servicer Coin Machines Relationship Specialty Start Date End Date No Ref-Primary, Physician PCP - General 01/01/24 02/03/24 Pierre Dyson [address] [place] [address] PCP - General Family Medicine 02/04/24 Silvana Avilez MD [address] [place] [address] Assigned OBGYN Provider 02/19/24 Sonja Martinez MD [address] [place] [address] Assigned Pediatric Specialist Provider 03/21/24 documented as of this encounter
--- OUTSIDE RECORDS SUMMARY | 2024-03-22 14:22 | XMS_ITS | Encounter Summary ---
Author Organization [place] Address [facility] [place] [address] Care Team Providers Care Orthopedic Mechanic Name Role Phone Pierre Dyson Primary Care Provider [phone] Encounter Details Date Type Department Care Team (Latest Contact Info) Description 02/04/2024 Travel Social History Tobacco Use Types Packs/Day [...] in an abandoned building, in an overnight halfway, or couch-surfing.) Yes 02/04/2024 Are you worried [...] on filedocumented in this encounter Care Teams Orthopedic Mechanic Relationship Specialty Start Date End Date Pierre Dyson [address] [facility] [place] [address] PCP - General Family Medicine 02/04/24 documented as of this encounter
--- OUTSIDE RECORDS SUMMARY | 2024-03-22 14:22 | XMS_ITS | Encounter Summary ---
Author Organization [place] Address [address] [place] [address]. [place] [address] Care Team Providers Care Sales Project Engineer Name Role Phone No Ref-Primary, Physician Primary Care Provider Encounter Details Date Type Department Care Team (Late st Contact Info) Description 01/22/2024 Medical Correspondence [facility] Health Information Management [address] [facility] [address] [place] [address] Scan, Non-Provider Social History Tobacco Use Types Packs/Day Years [...] on filedocumented in this encounter Care Teams Sales Project Engineer Relationship Specialty Start Date End Date No Ref-Primary, Physician PCP - General 01/01/24 02/03/24 documented as of this encounter
--- OUTSIDE RECORDS SUMMARY | 2024-03-22 14:22 | XMS_ITS | Encounter Summary ---
Author Organization [place] Address [facility] [address] Care Team Providers Care Business Reporter Name Role Phone Pierre Dyson Primary Care Provider [phone] Silvana Avilez MD Unavailable [phone] Encounter Details Date Type Department Care Team (Latest Contact Info) Description 03/06/2024 Travel Social History Tobacco Use Types Packs/Day [...] on filedocumented in this encounter Care Teams Business Reporter Relationship Specialty Start Date End Date Pierre Dyson [address] [place] [address] PCP - General Family Medicine 02/04/24 Silvana Avilez MD [address] [place] [address] Assigned OBGYN Provider 02/19/24 documented as of this encounter
--- OUTSIDE RECORDS SUMMARY | 2024-03-22 14:23 | XMS_ITS | Encounter Summary ---
Author Organization [facility] Address [address] [place] [id number] Care Team Providers Care Multigrapher Name Role Phone No Ref-Primary, Physician Primary Care Provider Reason for Referral * Diagnostic Imaging Ultrasound (Routine) - Pending Review Specialty Diagnoses / Procedures Referred By Contac t Referred To Contact Radiology. Diagnoses History of delivery, currently , first trimester Procedures [facility] US Comprehensive Single Silvana Avilez MD [address] [place] [address] Phone: tel: fax: Referral ID Status Reason Start Date Expiration Date V isits Requested Visits Authorized [id number] Pending Review 01/22/2024 01/21/2025 1 1 Reason for Visit * Reason Comments Ultrasound NT-hx PTD with neona guillermina demise at 21 weeks Consult MFM consult-hx PTD w ith demise at 21 weeks Genetic Counseling GC-hx PTD with neona guillermina demise at 21 weeks * Consultation (Routine: Next available opening) - Pending Review Specialty Diagnoses / Procedures Referred By Contac t Referred To Contact Diagnoses History of delivery, currently , first trimester Raine Franklin MD [address] [place] [address] Phone: tel: fax: Referral ID Status Reason Start Date Expiration Date V isits Requested Visits Authorized [id number] Pending Review 01/08/2024 01/07/2025 1 1 Encounter Details Date Type Department Care Team (Latest Contact Info) Description 01/22/2024 11:45 AM CDT Office Visit [facility] [place] [address] [place] [address] Silvana Avilez MD [address] [address] [place] [address] Cervical insufficiency during in first trimester, antepartum (Primary Dx); History of delivery, currently , first trimester Social History Tobacco Use Types Packs/Day Years [...] Sign Reading Time Taken Comments Blood Pressure 110/76 01/22/2024 11:58 AM CDT Pulse 81 01/22/2024 11:58 AM CDT Temperature - - Respiratory Rate - - Oxygen Saturation 100% 01/22/2024 11:58 AM CDT Inhaled Oxygen Concentration - - Weight - - Height - - Body Mass Index - - documented in this encounter Progress Notes * Silvana Avilez MD - 01/22/2024 11:45 AM CDT Images from the original note were not included. Maternal Medicine January 22, [address] Conrad, Thank you for referring your patient Ms. Megan De La Cruz for a Maternal- Medicine consultation today. As you know, she is a 33 year old at 11w5d by LMP c/w 8 week ultrasound whose most recentpregnancy was complicated by suspected cervical insufficiency with PPROM and PTD at 21w5d with subsequent demise. Kennedy's obstetrical history is significant for 3 prior term deliveries (37 week in 2016, 38 week primary in 2019 for failure to progress, and then a 37 week in 2021. She had GDM inthis ). Her most recent had been uncomplicated. She recalls that approximately 2weeks prior to delivery she had been in [place] following her father passing away and got food poisoning with significant nausea/vomiting/diarrhea. She then 2 weeks later went to a conference in [facility] and shortly after arriving had a small amount of spotting and felt like she might have lost her mucous plug. The following day she had low back pain and when she had a bowel movement felt a bulge in her vagina with increased pressure. She went in for evaluation at the closest hospital. She was told she was completely dilated and that she should drive to the [facility]. At the [facility] she was found to have hour glassing membranes. She was started on Indomethacin and had an MFM consult the following morning. They discussed options with her including expectant management, exam indicated cerclage, or induction of labor. Shortly after this discussion she hadPPROM. Proceeded with induction and uncomplicated . demise shortly after . Placental pathology consistent with chorioamnionitis. Today she feels well. She denies contractions/cramping, leakage, or bleeding. Excited but also understandably nervous. Today's visit performed with an in person unarmed security guard. Obstetrical History: OB History Para Term AB Living 5 [...] Failure to Progress in Second Stage Name: BG SIRISHA-KENNEDY Apgar1: 8 Apgar5: 9 1 Term 08/01/15 37w4d 30:20 / 04:02 2.778 kg (6 lb 2 oz) M Vag-Spont EPI N TRINITY Apgar1: 9 Apgar5: 9 Medical History: Hypothyroidism Surgical History: Past Surgical History: Procedure Laterality Date SECTION KNEE SURGERY Left ACL XR KNEE SURGERY BRIDGETTE LEFT Left Family History: Please see genetic counseling note for full detailed 3 generation family history Kennedy reports a personal and family history of congenital Deafness. Her partner, Jerrod, also has a personal and family history of Deafness. The couple's younger two children (5y, 2y) have hearing loss. Kennedy reports a family history significant for cancer. Specifically, her paternal grandmother (d.62y) had breast cancer under the age of 50y and did not have genetic testing. Kennedy has a family history of hypertrophic cardiomyopathy in her father (d.57y) and paternal grandmother (d.62y). She otherwise specifically denies a family history of motor/intellectual impairment, stillbirth, genetic or chromosome abnormalities or congenital anomalies. BP 110/76 (BP Location: Left arm, Patient Position: Sitting, Cuff Size: Adult Regular) Pulse 81 LMP 11/01/2023 SpO2 100% Gen: NAD CV: Regular rate Pulm: Breathing comfortably Abd: Soft, nontender, gravid Ext: WWP Pertinent Data Reviewed: Maternal echocardiogram 09/18/23 Final Conclusion 1. Normal left ventricular systolic function. Estimated left ventricular ejection fraction is 55-60%. 2. No regional wall motion abnormalities. 3. Normal right ventricular chamber size. Normal right ventricular systolic function. 4. No significant valvular heart disease. Placental pathology 08/27/2023 FINAL PATHOLOGY DIAGNOSIS: Schreiber placenta (159 g): -Second trimester chorionic villi with villous edema. -Acute chorioamnionitis with chorionic vasculitis and acute subchorionitis. -Three-vessel umbilical cord with one vessel vasculitis. Comment(s): The amount and pattern of acute inflammation in the membranes and umbilical cord are consistent with an amniotic fluid infection; both maternal and inflammatory response is identified. Clinical correlation is recommended. Assessment & Recommendations: 33 year old at 11w5d by LMP c/w 8 week ultrasound whose most recent was complicated by suspected cervical insufficiency with PPROM and PTD at 21w5d with subsequent demise. As you know and as I explained to Ms. Megan De La Cruz and her partner - her history is suspicious for cervical insufficiency. Unfortunately, the cause of cervical insufficiency is still poorly understood.It is typically diagnosed based on a history of painless cervical dilation after the first trimester with subsequent loss or delivery, typically, prior to 24 weeks. In someone with a history suspicious for cervical insufficiency there are two main strategies for management in a subsequentpregnancy: placement of an elective, early (<14 weeks of gestation) cerclage or cerclage placement only when ultrasound demonstrates cervical shortening. I discussed the risks, benefits, limitations and alternatives of each approach. We discussed that a history-indicated cerclage is typically placed at the end of the first trimester (13 to 14 weeks of gestation). In patients who choose serial cervical length screening we typically monitor the cervical length via ultrasound every 2 weeks nibe70-82 weeks and reserve cerclage placement for patients with a cervical length less than 25 mm. This approach may avoid unnecessary cerclage placement in up to 50% of patients. After counseling she would like to proceed with history indicated cerclage placement. We discussed scheduling this in the next 1-2 weeks and our patient care coordinators will reach out to her with adefinitive date and time. Plan: -Cell free DNA and carrier screening drawn today; results to be communicated as soon as they are available -History indicated cerclage planned in the next 1-2 weeks -Comprehensive anatomy scan with our office between 18-20 weeks -Referrals placed to cancer and cardiac genetics based on her family history -Cerclage removal with your or our office at 36-37 weeks At the end of our discussion, Ms. Megan De La Cruz indicated that her questions were answered and she seemed satisfied with our discussion. Thank you for the opportunity to participate in your patient???s care. If I can be of any further assistance, please do not hesitate to contact me. Sincerely, Silvana Avilez MD Furnace Fitter, OIL BURNER MECHANIC Maternal- Medicine I spent a total of 60 minutes during today's office visit with Ms. Megan De La Cruz. I also spent time reviewing the patient's medical record and documenting in her chart. Over 50% of this time was spent counseling the patient and/or coordinating care. Please see her note for specific details; I have made the necessary edits/additions. The patient was also seen for an ultrasound in the Maternal- Medicine Center today. For a detailed report of the ultrasound examination, please see the ultrasound report which can be found underthe imaging tab. documented in this encounter Nursing Notes * Mary Montoya RN - 01/22/2024 11:45 AM CDT Patient presents to [facility] for GC/NT/MFM consult at 11w5d due to hx PTD with demise at 21 weeks. Denies LOF, vaginal bleeding or cramping/contractions. SBAR given to MFM , see their note in Epic. documented in this encounter Plan of Treatment Not on file documented as of this encounter Results * [facility] Comprehensive Single (03/06/2024 9:46 AM SOLE LEVELING MACHINE OPERATOR) Anatomical Region Laterality Modality Ultrasound 03/06/2024 8:46 AM SOLE LEVELING MACHINE OPERATOR Impressions 03/06/2024 5:55 PM SOLE LEVELING MACHINE OPERATOR IMPRESSION ----- 1. Schreiber at 18w [...] a circumvallate placenta. Narrative 03/06/2024 5:55 PM SOLE LEVELING MACHINE OPERATOR Comprehensive ----- Pat. Name: KENNEDY PRICE Study Date: 03/06/2024 8:46am Pat. 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 (Transvaginal ultrasound examination was required to adequately complete the exam.). View: Sufficient ----- Cshreiber . Number of fetuses: 1 DATING ----- [...] 4d Hadlock Humerus 26.3 mm 18w 2d [facility] Weight Calculation: EFW 243 g 75% Hadlock EFW (lb,oz) 0 lb 9 oz EFW by Hadlock ([id number]) Head / Face / Neck Biometry: Cable Assembler 7.4 mm CM 3.8 mm Nasal bone 5.8 mm ANATOMY ----- The following structures appear normal: Head / Neck Cranium. Head size. Head shape. Lateral ventricles. Choroid plexus. Midline falx. Cavum septi pellucidi. Cerebellum. Cisterna magna. Parenchyma. Thalami. Vermis. Neck. Nuchal fold. Face Lips. Profile. Nose. Maxilla. Mandible. Orbits. Lens. Heart / Thorax 4-chamber view. RVOT view. LVOT view. 3-vessel view. 5-viaahq-eibmezg view. Situs. Aortic arch view. Bicaval view. [...] medical record, and communicating with other health manager long term care and/or care coordination. Procedure Note Sonja Martinez MD - 03/06/2024 Comprehensive ----- Pat. Name: KENNEDY PRICE Study Date: 03/06/2024 8:46am Pat. NO: [id number] Referring MD: RAFY CONRAD Site: Shaping Machine Tender: Key Fam RDMS : 1990 Age: 33 [...] EFW (lb,oz) 0 lb 9oz EFW by [place]ock([id number]) Head / Face / Neck Biometry: Cable Assembler 7.4mm CM 3.8mm Nasal bone 5.8mm ANATOMY ----- The following structures appear normal: Head / Neck Cranium. Head size. Head shape.Lateral ventricles. Choroid plexus. Midline falx. Cavum septi pellucidi.Cerebellum. Cisterna magna. Parenchyma. Thalami. Vermis. Neck. Nuchal fold. Face Lips. Profile. Nose. Maxilla.Mandible. Orbits. Lens. Heart / Thorax 4-chamber view. RVOT view. LVOT view.3-vessel view. 0-kmqzlc-jkyvxur view. Situs. Aortic arch view. Bicavalview. Ductal [...] electronic medical record, andcommunicating with other health manager long term care and/or carecoordination. IMPRESSION ----- 1. Schreiber at [...] a circumvallate placenta. us Raine Franklin MD [facility] ORDER[facility]LES Edit ed Result - Final documented in this encounter Visit Diagnoses Diagnosis Cervical insufficiency during in first trimester, antepartum- Primary History of delivery, currently , first trimester History of delivery, currently , first trimester documented in this encounter Care Teams Multigrapher Relationship Specialty Start Date End Date No Ref-Primary, Physician PCP - General 01/01/24 02/03/24 documented as of this encounter
--- OUTSIDE RECORDS SUMMARY | 2024-03-22 14:23 | XMS_ITS | Clinical Summary ---
Author Organization [employer] [facility] Address [place], [place] [address] Care Team Providers Care Race Car Driver Name Role Phone Pierre Dyson MD Primary Care Provider Raine Vogt CNM Unavailable [phone] Allergies Active Allergy Reactions Criticality Noted Date Comments Cats (Fur, Dander, Saliva) Throat Swelling/Closing High 01/13/2020 Cefaclor Hives 01/13/2020 Medications Medication Sig Dispensed Refills Start Date End Date Status fluticasone (50 mcg per actuation) nasal solution (FLONASE) Inhale 2 Sprays into both nostrils once daily. 1 Bottle 01/13/2020 Active multivitamin () 27 mg iron- 800 mcg folicIndications:Enc ounter for supervision of other normal in first trimester Take 1 Tablet by mouth once daily with a meal. 90 Tablet 3 05/25/2021 Active diclofenac topical (VOLTAREN) 1 % gelIndications:Acute pain of left knee,Knee strain, left, initial encounter Apply 4 g topically to affected area(s) four times daily. 50 g 03/15/2023 Active albuterol HFA (PRO-AIR; VENTOLIN; PROVENTIL) 90 mcg/actuation inhalerIndications:M ild persistent asthma with exacerbation Inhale 2 Puffs by mouth every 4 hours if needed for Shortness Of Breath. 18 g 12 04/10/2023 Active levothyroxine (SYNTHROID) 75 mcg tabletIndications:Hy pothyroidism (acquired) Increase from 7 to 9 pills per week. 108 Tablet 01/10/2024 Active fluticasone furoate-vilanteroL (Breo Ellipta) 100-25 mcg/dose inhalation powderIndications:Mi ld persistent asthma with exacerbation Inhale 1 Puff by mouth once daily. Rinse mouth after each use. Discard 6 weeks after opening or when the counter reads 0 (after all blisters have been used) whichever comes first. 180 Each 02/21/2024 Active flunisolide, 25 mcg per actuation, nasal (NASALIDE) 25 mcg (0.025 %) nasal sprayIndications:Mil d persistent asthma with exacerbation Inhale 2 Sprays in both nostrils two times daily. 50 mL 02/21/2024 Active Active Problems Problem Noted Date Diagnosed Date Primary osteoarthritis of left knee 05/10/2023 Chondromalacia of left knee 05/10/2023 Bodies, loose, joint, knee, left 05/10/2023 Bilateral sensorineural hearing loss 04/02/2022 ASCUS with positive high risk HPV cervical 02/02 Overview (04/25/2023): 01/30/2022: NIL/HPV 18+ 03/05/2022: [place] and ECC - NED 1 04/10/2023: ASCUS/HPV 18+ Plan: Colposcopy complicated by abdominal mass Comments Yes Encounters Date Type Department Care Team Description 02/10/2024 4:00 PM CDT Office Visit [address] [address] Pierre Dyson MD Follow Up (Chest congestion feels like there is phlegm in chest ) 02/10/2024 Travel 02/03/2024 5:20 PM CDT Office [place] [address] [place] [address] Pierre Dyson MD Cough (Dry harsh cough with wheezing x 3 weeks ) 02/02/2024 Travel 01/09/2024 [address] [address] Pierre Dyson MD Refill Request (Levothyroxine) 01/01/2024 Lab Requisition [facility] [phone] Wandy Moreno PA-C from Last 3 Months Immunizations Name Administration Dates Next Due COVID-19 VACCINE SPIKEVAX (M ODERNA 50MCG/0.5ML) 12YO+ PFS 04/10/2023 COVID-19 vaccine ([employer] NTech 30mcg/0.3mL) 12YO+ BIVALENT PF, MDV 01/30/2022 [...] 0 04/10/2023 Social Connections Answer Date Recorded Do you often feel lonely or isolated from those around you? 0 02/02/2024 Financial Resource Strain Answer Date R ecorded Difficulty of Paying Living Expenses 3 02/02/2024 Difficulty of Paying Living Expenses Not on file 02/02/2024 Food Insecurity Answer Date Recorded Do you worry your food will run out before you are able to buy more? 1 02/02/2024 Transportation Needs Answer Date Record ed Does lack of transportation keep you from medica l appointments? 1 02/02/2024 Does lack of transportation keep you from work, meetings or getting things that you need? 1 02/02/2024 Housing Stability Answer Date Recorded What is your housing situation today? 1 02/02/2024 Comments Yes Sex and Gender Information Value Date Recorded Sex Assigned at Female 04/30/2020 1:15 PM SCARIFIER OPERATOR Gender Identity Female 04/30/2020 1:15 PM SCARIFIER OPERATOR Sexual Orientation Choose not to disclose 2020 9:29 PM SCARIFIER OPERATOR Obstetrics History Para Term AB IAB SAB Ectopic Multiple Livin g Live Births 5 2 2 Date Outcome GA Total Labor Labor/2nd/3rd Weight Sex Type Anes PTL Naomie A1 A5 Name Clin Term F CS-Clas sical Term M Vag Current Last Filed Vital Signs Vital Sign Reading Time Taken Comments Blood Pressure 96/60 02/10/2024 4:09 PM CDT Pulse 94 02/10/2024 4:09 PM CDT Temperature 36.8 C (98.2 F) 02/03/2024 5:28 PM CDT Respiratory Rate 18 03/15/2023 2:31 PM SCARIFIER OPERATOR Oxygen Saturation 97% 02/10/2024 4:09 PM CDT Inhaled Oxygen Concentration - - Weight 75.3 kg (166 lb) 02/10/2024 4:09 PM CDT Height 160 cm (5' 3) 09/03/2023 1:04 PM CDT Body Mass Index 29.41 09/03/2023 1:04 PM CDT Plan of Treatment Health Maintenance Due Date Last Done Comments HIV for age 15-65 2004 COVID-19 vaccine series ( season) 2023 04/10/2023, 01/30/2022, 04/19/2021, Additional history exists Influenza for age 9-49 12/29/2023 3, 01/30/2022, 06/09/2021, Additional history exists Depression screening for age 12+ 04/10/2024 04/10/2023, 01/30/2022, 01/09/2022, Additional history exists BMI (ht and wt on same day) for age 18+ 09/02/2024 09/03/2023, 04/10/2023, 09/06/2022, Additional history exists Pap test for age 21-65 12/30/2024 4, 12/31/2023, 04/10/2023, Additional history exists Tetanus booster 11/10/2031 11/09/2021, 04/29/2018 RSV vaccine for adults or (1 - 1-dose 75+ series) 2064 Tdap Completed 11/09/2021, 04/29/2018 Hepatitis C screening for age 18-79 Completed 01/30/2022 Pneumococcal series for age 6-64 Aged Out 04/10/2023 No longer eligible based on patient's age to complete this topic Medical Devices Implanted Type Area Recycler Device Identifier Shelf Expiration Date Model / Serial / Lot Sys Meniscal Cvd 360 Fast-Fix - [id number] Implanted:Qty: 2 on 03/15/2020 by Marcello Valenzuela MD at [facility] Left: Knee [employer] 11/09/2022 [id number] / / [id number] Sys Meniscal Rev Cvd 360 Fast-Fix - [id number] Implanted:Qty: 1 on 03/15/2020 by Marcello Valenzuela MD at [facility] Left: Knee [employer] 05/27/2020 [id number] / / [id number] Sys Meniscal Cvd 360 Fast-Fix - [id number] Implanted:Qty: 3 on 03/15/2020 by Marcello Valenzuela MD at [facility] Left: Knee [employer] 10/26/2022 [id number] / / [id number] Description:From vendors sto ck Procedures Procedure Name Priority Date/Time Associated Diagnosis Comments LAB TRACKING EVENT Routine 12/31/2023 2: 20 PM CDT PIE CRUST MIXER THIN PREP PAP SCREEN IMAGED Routine 12/31/2023 2:20 PM CDT HPV HIGH RISK Routine 12/31/2023 2:20 PM CDT ANTI HCV Routine 01/30/2022 2:51 PM CDT Need for hepatitis C screening test from Last 3 Months or Most Recently Relevant to Health Maintenance Results * LAB TRACKING EVENT (12/31/2023 2:20 PM CDT) Other (Other) Client Collect / Unknown 12/31/2023 2:20 PM CDT 01/01/2024 5:20 PM CDT Wandy L Fitzloff PA-C LAB BILL [facility] [address] [place] [address], [place] * PIE CRUST MIXER THIN PREP PAP SCREEN IMAGED (12/31/2023 2:20 PM CDT) Case Report Gynecologic Cytology Report Case: [id number] Authorizing Provider: Wandy Moreno PA-C Collected: 12/31/2023 1420 Ordering Location: [facility] Received: 01/03/2024 1703 First Screen: Fabricio Bee Specimen: PIE CRUST MIXER ThinPrep Vial Screening, Cervical 01/14/2024 10:03 AM CDT [facility] [employer] [facility] INTERPRETATION/ RESULT NEGATIVE FOR INTRAEPITHELIAL LESION OR MALIGNANCY (NIL) (none) 01/14/2024 10:03 AM CDT [facility] IMEN ADEQUACY Satisfactory for evaluation No endocervical component seen in a patient 01/14/2024 10:03 AM CDT [facility] HPV REQUEST HPV and PAP 01/14/2024 10:03 AM CDT [facility] Date of LMP 11/01/2023 01/14/2024 10:03 AM CDT [facility] Last Pap Date 01/14/2024 10:03 AM CDT [facility] Comment:06/2018 Last Pap Result NIL 10:03 AM CDT [facility] [employer] [facility] Abnormal Pap or [place] Bx in last 5 years No 01/14/2024 10:03 AM CDT [facility] [employer] [facility] Menstrual Status 01/14/2024 10:03 AM CDT [facility] [employer] [facility] [place] Bx Done Today No 01/14/2024 10:03 AM CDT [facility] [employer] [facility] Additional Information 01/14/2024 10:03 AM CDT [facility] [employer] [facility] Comment: Interpreted at [facility] - [address], [place] [address] Automated Review Successful 01/14/2024 10:03 AM CDT [facility] Comment:Specimen processed s uccessfully by automated ecological economist device, ThinPrep Imaging System, [employer] ANCILLARY TESTING PIE CRUST MIXER HPV Ordered, Please see separate report 01/14/2024 10:03 AM CDT [facility] ENTR[facility]AT[facility] Note The pap test is a screening technique, not a diagnostic procedure. It is used primarily to screen for squamous cancers and precursor lesions. Published studies have shown that it is subject to both false negative and false positive results. The pap test should not be used as the sole means to diagnose or exclude pre-malignant and malignant lesions. 01/14/2024 10:03 AM CDT [facility] Other (Cervical) 12/31/2023 2:20 PM CDT 01/03/2024 5:03 PM CDT Wandy Moreno PA-C PATHOLOGY/CYTOLOGY [facility] [address] [place] [address], * (ABNORMAL) HPV HIGH RISK (12/31/2023 2:20 PM CDT) TYPE 16 Negative Negative 01/07/2024 11:26 AM CDT [facility] LAB[facility] TYPE 18 Positive(A) Negative 01/07/2024 11:26 AM CDT [facility] OTHER HIGH RISK TYPES Negative Negative 01/07/2024 11:26 AM CDT [facility] Other (Cervical) 12/31/2023 2:20 PM CDT 01/03/2024 5:03 PM CDT Narrative [facility] - 01/07/2024 11:26 AM CDT Specimen is positive for HPV type 18 DNA. HPV types 16, 31, 33, 35, 39, 45, 51, 52, 56, 58, 59, 66 and 68 DNA were undetectable or below the pre-set threshold. Methodology: GAMEVILas 4800 HPV Test Wandy Moreno PA-C MICROBIOLOGY [facility] [employer] [address] [place] [address], * ANTI HCV (01/30/2022 2:51 PM CDT) HEPATITIS C ANTIBODY Non-React edgar Non-React edgar 02/01/2022 12:31 AM CDT [facility] [employer] [facility] Comment:Antibodies to HCV no t detected; does not exclude the possibility of exposure to HCV. Blood BLOOD SPECIMEN / Unknown Venipuncture / Unknown 01/30/2022 2:51 PM CDT 01/30/2022 2:54 PM CDT Pierre Dyson MD SEND OUTS [facility] [employer] [address] [place] [address], from Last 3 Months or Most Recently Relevant to Health Maintenance Advance Directives * Full Code (Latest Code Status on File) Date Activated Date Inactivated Comments 03/15/2020 6:34 AM 03/15/2020 6:06 PM Question Answer Comments Code Status Discussion: Discussed Care Teams Race Car Driver Relationship Specialty Start Date End Date Pierre Dyson MD [address] [place] [address] PCP - General Family Practice 03/01/20 Raine Vogt CNM [address] [place] [address] Referring Provider Certified Nurse Heavy Equipment Engine Mechanic 09/21/21
--- OUTSIDE RECORDS SUMMARY | 2024-03-22 14:23 | XMS_ITS | Encounter Summary ---
Author Organization [facility] Address [address] [place] [address] Care Team Providers Care Track Broom Operator Name Role Phone No Ref-Primary, Physician Primary Care Provider Pierre Dyson Primary Care Provider [phone] Silvana Avilez MD Unavailable [phone] Sonja Martinez MD Unavailable [phone] Reason for Referral * Consultation (Routine: Next available opening) - Pending Review Specialty Diagnoses / Procedures Referred By Contac t Referred To Contact Diagnoses History of delivery, currently , first trimester Raine Franklin MD [address] [address] Phone: tel: fax: Referral ID Status Reason Start Date Expiration Date V isits Requested Visits Authorized [id number] Pending Review 01/08/2024 01/07/2025 1 1 * Consultation (Routine: Next available opening) - Pending Review Specialty Diagnoses / Procedures Referred By Contac t Referred To Contact Diagnoses History of delivery, currently , first trimester Raine Franklin MD [address] [address] Phone: tel: fax: Referral ID Status Reason Start Date Expiration Date V isits Requested Visits Authorized [id number] Pending Review 01/08/2024 01/07/2025 1 1 Question Answer Office Visit Type: MFM Consult Additional Information: Rad consult * Diagnostic Imaging Ultrasound (Routine) - Pending Review Specialty Diagnoses / Procedures Referred By Kathy grover Referred To Contact Radiology. Diagnoses History of delivery, currently , first trimester Procedures Maternal Nuchal Translucency Raine Franklin MD [address] [address] Phone: tel: fax: Referral ID Status Reason Start Date Expiration Date V isits Requested Visits Authorized [id number] Pending Review 01/08/2024 01/07/2025 1 1 Encounter Details Date Type Department Care Team (Late st Contact Info) Description 01/08/2024 [facility] Only [facility] [address] [place], [place] [address] Marisol Mooney RN History of delivery, currently , first trimester (Primary Dx) Social History Tobacco Use Types Packs/Day Years Used Date Smoking Tobacco: Never Assessed Comments Unknown Sex and Gender Information Value Date Recorded Sex Assigned at Not on file Legal Sex Female 12:20 PM CDT Gender Identity Not on file Sexual Orientation Not on file documented as of this encounter Plan of Treatment Scheduled Referrals Name Type Priority Associated Diagnoses Orde r Schedule MF Office Visit - MFM Consult Referral Routine: Next available opening History of delivery, currently , first trimester Expected: 01/08/2024 (Approximate), Expires: 01/07/2025 MF Genetic Counseling Referral Routine: Next available opening History of delivery, currently , first trimester Expected: 01/08/2024 (Approximate), Expires: 01/07/2025 documented as of this encounter Results * Maternal Nuchal Translucency [...] PRICE Study Date: 01/22/2024 11:13am Pat. NO: [id number] Referring MD: RAFY CONRAD Site: [facility] Manager: Андрей Francis RDMS : 1990 Age: [...] MD - 01/22/2024 NT ----- Pat. Name: RYAN DE LA CRUZ KENNEDY Study Date: 01/22/2024 11:13am Pat. NO: [id number] Referring MD: RAFY CONRAD Site: [facility] Manager: Андрей Francis RDMS : 1990 Age: [...] early gestational age. us Raine Franklin MD [facility] ORDERABLES Edit ed Result - Final documented in this encounter Visit Diagnoses Diagnosis History of delivery, currently , first trimester- Primary History of delivery, currently , first trimester documented in this encounter Care Teams Track Broom Operator Relationship Specialty Start Date End Date No Ref-Primary, Physician PCP - General 01/01/24 02/03/24 Pierre Dyson [address] [place] [address] PCP - General Family Medicine 02/04/24 Silvana Avilez MD [address] [facility] [address] [place] [address] Assigned OBGYN Provider 02/19/24 Sonja Martinez MD [address] [place] [address] Assigned Pediatric Specialist Provider 03/21/24 documented as of this encounter
--- OUTSIDE RECORDS SUMMARY | 2024-03-22 14:23 | XMS_ITS | Encounter Summary ---
Author Organization [facility] Address [address] [place] [address]. [place] [address] Care Team Providers Care Hobbies And Crafts Sales Representative Name Role Phone No Ref-Primary, Physician Primary Care Provider Reason for Visit * Reason Comments Genetic Counseling Hx PTD and demise at 21 weeks Ultrasound NT-Hx PTD and neonat al demise at 21 weeks Consult Hx PTD and demise at 21 weeks Encounter Details Date Type Department Care Team (Late st Contact Info) Description 01/14/2024 PRE VISIT [facility] [place] [address] [facility] [address] [place] [address] Ana Jenkins, RN Genetic Counseling (Hx PTD and demise at 21 weeks); Ultrasound (NT-Hx PTD and demise at 21 weeks); Consult (Hx PTD and demise at 21 weeks) Social History Tobacco Use Types Packs/Day Years Used Date Smoking Tobacco: Never Assessed Estimated Date of Delivery Comme nts Yes [...] on filedocumented in this encounter Care Teams Hobbies And Crafts Sales Representative Relationship Specialty Start Date End Date No Ref-Primary, Physician PCP - General 01/01/24 02/03/24 documented as of this encounter
--- OUTSIDE RECORDS SUMMARY | 2024-03-22 14:23 | XMS_ITS | Encounter Summary ---
Author Organization [place] Address [address] [place] [address] Care Team Providers Care Medical Billing And Coding Specialist Name Role Phone No Ref-Primary, Physician Primary Care Provider Reason for Referral * Consultation (Routine) - Pending Review Specialty Diagnoses / Procedures Referred By Kathy t Referred To Contact Diagnoses related condition, antepartum July Phone: tel: fax: [facility] [place] [address] [facility] [address] [place] [address] Phone: tel: fax: Referral ID Status Reason Start Date Expiration Date V isits Requested Visits Authorized [id number] Pending Review 01/01/2024 12/31/2024 1 1 Question Answer MFM Consultation (unrelated to Ultrasound findings) Yes (enter details in Comments) Genetic Counseling Consultation: No fax [facility] July [phone] Ultrasound NONE US PROC NONE Preferred Location: [facility] [place] 08/07/2024 MFM Issue OTHER (enter details in Comments) - delivery & demise @ 21 wks 5 days Comments There is no height or weight on file to calculate BMI. >> Patient may proceed with recommendations for further testing as directed by the Maternal Medicine Specialist >> >> If requesting Echo: MFM will determine appropriate location for exam due to indication. Please be aware that coverage of these services is subject to the terms and limitations of your health insurance plan. Call member services at your health plan with any benefit or coverage questions. Encounter Details Date Type Department Care Team (Latest Contact Info) Description 01/01/2024 Transcribe Orders [facility] [place] [address] [facility] [address] [place] [address] Tiffanie, July [address] [place] [address] related condition, antepartum (Primary Dx) Social History Tobacco Use Types [...] Type Priority Associated Diagnoses Orde r Schedule [facility] Referral - Referral Routine related condition, antepartum Expected: 01/01/2024 (Approximate), Expires: 06/29/2024 documented as of this encounter Visit Diagnoses Diagnosis related condition, antepartum- Primary documented in this encounter Care Teams Medical Billing And Coding Specialist Relationship Specialty Start Date End Date No Ref-Primary, Physician PCP - General 01/01/24 02/03/24 documented as of this encounter
--- OUTSIDE RECORDS SUMMARY | 2024-03-22 14:23 | XMS_ITS | Encounter Summary ---
Author Organization [place] Address [address] [place] [address]. [place] [address] Care Team Providers Care Materials Planner/Production Planner Name Role Phone No Ref-Primary, Physician Primary Care Provider Encounter Details Date Type Department Care Team (Latest Contact Info) Description 12/31/2023 Medical Correspondence [facility] Information Management [address] [place] [address] Scan, Non-Provider [facility] PROVIDER SERVICE REQUEST- OUTPATIENT Social History Tobacco Use Types Packs/Day Years [...] on filedocumented in this encounter Care Teams Materials Planner/Production Planner Relationship Specialty Start Date End Date No Ref-Primary, Physician PCP - General 01/01/24 02/03/24 documented as of this encounter
--- OUTSIDE RECORDS SUMMARY | 2024-03-22 14:23 | XMS_ITS | Encounter Summary ---
Author Organization [place] Address [facility] [place] [address] Care Team Providers Care Pathology Collector Name Role Phone No Ref-Primary, Physician Primary Care Provider Reason for Referral * Consultation (Routine: Next available opening) - Pending Review Specialty Diagnoses / Procedures Referred By Contdajuan t Referred To Contact Genetics, Clinical Diagnoses Family history of hypertrophic cardiomyopathy Silvana Avilez MD [address] [place] [id number] Phone: tel: fax: Referral ID Status Reason Start Date Expiration Date V isits Requested Visits Authorized [id number] Pending Review 01/22/2024 01/21/2025 1 1 Scheduling Instructions Patient uses mixer whipped topping Question Answer Reason for Referral: Cardiology Scheduling Instructions: [facility] will call you to coordinate your care as prescribed by your provider. If you don't hear from a hobbies and crafts sales representative within 2 business days, please call [phone]. Additional Information: Patient's father (d.57y) and paternal grandmother (d.62y) had hypertrophic cardiomyopathy and no genetic testing Comments We will make every effort to schedule with your recommended provider. However, to minimize your waiting time for the appointment, we may offer an appointment with an alternative provider. Please be aware that coverage of these services is subject to the terms and limitations of your health insurance plan. Call member services at your health plan with any benefit or coverage questions. [facility] will call you to coordinate your care as prescribed by your provider. If you don't hear from a hobbies and crafts sales representative within 2 business days, please call [phone]. * Consultation (Routine: Next available opening) - Pending Review Specialty Diagnoses / Procedures Referred By Kathy grover Referred To Contact Medical Oncology Diagnoses Family history of malignant neoplasm of breast Silvana Avilez MD [address] [place] [address] Phone: tel: fax: Referral ID Status Reason Start Date Expiration Date V isits Requested Visits Authorized [id number] Pending Review 01/22/2024 01/21/2025 1 1 Scheduling Instructions mixer whipped topping required Question Answer My Clinical Question Is: Patient's paternal grandmother () with breast cancer <50y and no history of genetic testing, patient's father also If you have additional clinical questions which require a provider discussion, please call [phone]. Ask for the Chemo only medicine physician. Reason for Referral: Risk Management/Genetic Counseling Scheduling Instructions: [facility] will call you to coordinate your care as prescribed by the provider. If you don t hear from a hobbies and crafts sales representative within 2 business days, please call Comments Please be aware that coverage of these services is subject to the terms and limitations of your health insurance plan. Call member services at your health plan with any benefit or coverage questions. [facility] will call you to coordinate your care as prescribed by the provider. If you don t hear from a hobbies and crafts sales representative within 2 business days, please call Reason for Visit * Reason Comments Genetic Counseling Screening, history o f demise following PTL, congenital Deafness * Consultation (Routine: Next available opening) - Pending Review Specialty Diagnoses / Procedures Referred By Kathy grover Referred To Contact Diagnoses History of delivery, currently , first trimester Raine Franklin MD [address] [place] [address] Phone: tel: fax: Referral ID Status Reason Start Date Expiration Date V isits Requested Visits Authorized [id number] Pending Review 01/08/2024 01/07/2025 1 1 Encounter Details Date Type Department Care Team (Latest Contact Info) Description 01/22/2024 10:15 AM CDT Office Visit [facility] [place] [facility] [address] [place] [id number] Silvana Avilez MD [address] [place] [address] Cadence Jones [address] [place] [address] Encounter for screening of mother (Primary Dx); History of delivery, currently , first trimester; Encounter of female for testing for genetic disease carrier status for procreative management; Encounter for procreative genetic counseling and testing; Deafness congenital; Family history of malignant neoplasm of breast; Family history of hypertrophic cardiomyopathy Social History Tobacco Use Types Packs/Day Years [...] as of this encounter Progress Notes * Cadence Jones - 01/22/2024 10:15 AM CDT [facility] Genetic Counseling Consult Patient: Miriam De La Cruz Preferred Name: Miriam Date of : 1990 Date of Service: 01/22/24 Miriam was seen at the [facility] for genetic consultation. The indication for genetic counseling is desire to discuss options for genetic screening and diagnosticsand personal medical history. The patient was accompanied to this visit by their partner, Jerrod Raza. The session was conducted with an in person research phlebotomist, Shona Oakes. IMPRESSION/ PLAN 1. Miriam has not had genetic screening in this but elected to have screening today. 2. During today's MF visit, Miriam had a blood draw for expanded non-invasive testing (also called NIPT, NIPS, or cell-free DNA) through [facility] ([facility]). The expanded NIPT screens for trisomy 21, 18, and 13 and select microdeletion syndromes, including 22q11.2 deletion syndrome. The patient opted to screen for sex chromosome aneuploidies, but does NOT wish to know predicted sex. She is aware that if results are abnormal for a sex chromosome aneuploidy, I will disclose predicted sex. Results are expected in 7-14 days. The patient requested that results be sent to her via Karmarama message. If results are abnormal, patient will request a genetic counseling visit. Patient was informed that results, including sex, will be available in [facility]. 3. Miriam and her partner, Jerrod, elected to pursue expanded carrier screening for 267 conditions through [facility] [employer]. Results are expected within 2-3 weeks, and will be available in Docker. We will contact the couple to discuss the results. The couple requested that we contact Miriam with results once both are available. She requested a Karmarama message with results. Authorization to share protected health information was signed today's visit. 4. Since the patient chose aneuploidy screening via NIPT, quad screen is NOT recommended in the second trimester. If the patient desires screening for open neural tube defects, maternal serum AFP only is recommended, ideally between 16- 18 weeks gestation. 5. Miriam had a nuchal translucency ultrasound today. Please see the ultrasound report for further details. Miriam also had a MFM consultation today. Please see the consult note for more details. 6. Further recommendations include a anatomy level II ultrasound with [facility]. The upcoming ultrasound has been scheduled for 03/06/2024. 7. Miriam reports a family history significant for a paternal grandmother (d. 62y) with breast cancer diagnosed under the age of 50y with no history of genetic testing. She also reports a family history significant for her father (d.57y) and paternal grandmother (d.62y) with hypertrophic cardiomyopathy with no history of genetic testing. A referral to [facility] Cancer Risk Management genetic counseling and [facility] cardiology genetic counseling were offered and accepted today. Orders were placed to coordinate this care. HISTORY /Parity: Miriam's history is significant for: A son (8y) born vaginally in 07/2015 with her current partner A daughter (5y) born via section in 05/2018 with her current partner A son (2y) born via in 12/2021 with her current partner A delivery at 21w for which there was demise in 07/2023 with her current partner CURRENT Current Age: [age] year old Age at Delivery: 33 year old SYLVAIN: 08/07/2024, by Last Menstrual Period Gestational Age: 11w5d This is a single gestation. This was conceived spontaneously. Miriam denies bleeding, complications, illnesses, fevers, and exposure concerns. She reports she is taking vitamins, albuterol, and levothyroxine. MEDICAL HISTORY Miriam had an MFM consult today due to her history of labor and demise. See MFM consult note for details. FAMILY HISTORY A three-generation pedigree was obtained today and is scanned under the Media tab in [employer]. The family history was reported by Miriam and their partner. The following significant findings were reported today: Miriam reports a personal and family history of congenital Deafness. Her partner, Jerrod, also has a personal and family history of Deafness. The couple's younger two children (5y, 2y) have hearing loss. The couple reports that there has not been previous genetic testing to assess for genetic etiology. We discussed that there are many genetic etiologies of hearing loss. About 50% of cases of hearing loss are due to environmental causes. There are syndromic and nonsyndromic genetic etiologies for hearing loss. Syndromic causes generally have other health or physical differences seen in association with hearing loss. Nonsyndromic genetic etiologies explain 35% of cases of hearing loss, and occur without physical or other health findings. We discussed that carrier screening can assess for somenonsyndromic genetic etiologies for hearing loss,. The couple was interested in assessing for possible genetic etiology. They elected carrier screening today. They are aware carrier screening is not comprehensive for all genetic etiologies. If negative, a referral to general genetics can be consider ed. Miriam reports a family history significant for cancer. Specifically, her paternal grandmother (d.62y) had breast cancer under the age of 50y and did not have genetic testing. Miriam's father (d.57y) has three brothers. There is no additional paternal family history of cancer. Miriam has three maternal cousins with leukemia. We discussed the family history of breast cancer briefly. Cancer most oftenoccurs by chance; however, some families seem to develop cancer more frequently than expected. Everyone has a risk to develop cancer, but individuals may be at an increased risk to develop cancer based on their family history. We discussed that breast cancer <50y is rare and can be associated with inherited cancer predisposition syndromes. Genetic counseling is available for cancer syndromes. Cancer family history, even without genetic testing, can change cancer screening recommendations forfamily members and aid in insurance coverage for access to them as well. The most informative individuals to complete cancer genetic counseling and genetic testing are those with a personal history of cancer or those closely related to the affected individuals. This may be Miriam as her father and paternal grandmother are . Miriam was provided a brochure on the Cancer Risk Management Program and requested a referral which was placed today. Miriam has a family history of hypertrophic cardiomyopathy in her father (d.57y) and paternal grandmother (d.62y). She reports that neither relative had genetic testing. Miriam had an echocardiogram within normal limits. Familial hypertrophic cardiomyopathy (HCM) is a cardiac condition characterized by hypertrophy (thickening) of the cardiac (heart) muscle. This thickening typically occurs in the septum that the left and right ventricle. This thickening can impede or make the pumping ofoxygen-rich blood from the heart less efficient. Onset is typically adolescence or young adulthood but can develop at any age. Symptoms of HCM are variable but can include chest pain, shortness of breath, palpitations, dizziness, and fainting. In some cases HCM can cause more significant complications such as arrhythmias and sudden cardiac . There are several genes, in which a monoallelic pathogenic variant, would cause HCM. These genes are all inherited in an autosomal dominant pattern. Therefore, most affected individuals have one affected parent and a 50% chance of having a child withthe condition as well. I offered a referral to cardiology genetic counseling which was accepted andplaced today. Jerrod (33y) was born with a club foot. Clubfeet can be the result of an abnormal position of the baby, lack of amniotic fluid, a genetic syndrome, a neurological problem, or other unknown causes. If the clubfoot is isolated (no other structural differences identified), then it is typically thought to be caused by multifactorial inheritance, meaning that some environmental effects of unknown origin combined with a certain genetic predisposition caused the clubfoot. In many cases the cause of clubfoot cannot be determined. We discussed the limitations of ultrasound in detecting clubfeet. Otherwise, the reported family history is unremarkable for multiple miscarriages, stillbirths, defects, intellectual disabilities, and consanguinity. RISK ASSESSMENT FOR INHERITED CONDITIONS AND CARRIER SCREENING OPTIONS Expanded carrier screening is available to screen for autosomal recessive conditions and X-linked conditions in a large list of genes. Carrier screening does not test the but gives a risk assessment for the and future pregnancies to have the condition. Expanded carrier screeningis designed to identify carrier status for conditions that are primarily childhood or adolescent onset. Expanded carrier screening does not evaluate for adult-onset conditions such as hereditary cancer syndromes, dementia/ Alzheimer's disease, or cardiovascular disease risk factors. Additionally, expanded carrier screening is not comprehensive for all known genetic diseases or inherited conditions. Carrier screening does not test for all genetic and health conditions or risk factors. Autosomal recessive conditions happen when a mutation has been inherited from the egg and sperm andinclude conditions like cystic fibrosis, thalassemia, hearing loss, spinal muscular atrophy, and more. We reviewed that when both biological parents carry a harmful genetic change in a gene associated with autosomal recessive inheritance, each of their pregnancies has a 1 in 4 (25%) chance to be affected by that condition. X-linked conditions happen when a mutation has been inherited from the eggand include conditions like fragile X syndrome.With x-linked conditions, the specific risk generally depends on the chromosomal sex of the fetus, with XY individuals (generally male) being most severely affected. screening assesses for some of these conditions. About [place] Screening The patient does NOT have a family history of known inherited conditions. This does NOT mean the patient and/or their partner is not a carrier of a condition. Approximately 90% of couples at an increased reproductive risk for an inherited condition have no family history of that condition. The patient had previous carrier screening for 2 conditions (Cystic Fibrosis and Spinal Muscular Atrophy) through [facility] in 12/2017. It was negative per her medical records. A copy of the report was not available for review today. Miriam was unaware of previous carrier screening. The patient's partner did not complete carrier screening as well. The patient and their partner pursued carrier screening today. The screening will include 267 conditions through [facility] [employer] See below for the more detailed information we discussed. See separate documentation in partners chart. Expanded carrier screening for mutations in a large panel of genes associated with autosomal recessive conditions including cystic fibrosis, spinal muscular atrophy, and others, is now available. We discussed that expanded carrier screening is designed to identify carrier status for conditions that are primarily childhood or adolescent onset. Expanded carrier screening does not evaluate for adult-onset conditions such as hereditary cancer syndromes, dementia/ Alzheimer's disease, or cardiovascular disease risk factors. Additionally, expanded carrier screening is not comprehensive for all known genetic diseases or inherited conditions. This is a screening test, and residual carrier status risk figures will be provided to the patient after results become available. Carrier screening is not meant to diagnose the patient with a condition, and generally carriers are asymptomatic. However, certain genes may confer increased risks for various health concerns in carriers (DMD, FMR1, etc).Patients are encouraged to share results with their primary care providers to ensure appropriate screening. If we are notified by the performing laboratory of a variant reclassification, the patient will be contacted. We reviewed that there is a law in place, the Genetic Information Nondiscrimination Act (CECIL), that protects patients from discrimination by health insurance companies and employers based on their genetic information. CECIL does not protect against discrimination by life insurance companies or disability insurance. We reviewed availability of expanded carrier screening through [employer] and different panel sizes. If an individual is a carrier, family members could be as well. The patient is encouraged to share positive results with siblings and other family members of reproductive age. Additionally, even if there is not a high reproductive risk for a condition, it is possible that carrier status can be passed on to future generations. [facility] is not responsible for this billing, it is handled entirely by the performing lab. The patient has the responsibility of continuing with insurance billing or the option of changing to self pay. Many plans cover genetic testing but that does not mean free. Covered benefits go towards a deductible or out of pocket maximum (if a plan has these). If the patient decides the better financial option is to do self pay instead, it is their responsibility to communicate this to the performing lab. Genetic counselors have limited availability to change or help with this process. [facility] billing can also be reached at [phone] or [email or web address] RISK ASSESSMENT FOR CHROMOSOME CONDITIONS We explained that the risk for chromosome abnormalities increases with maternal age. We discussed specific features of common chromosome abnormalities, including trisomy 21 (Down syndrome), trisomy 13, trisomy 18, and sex chromosome trisomies. At age 33 at midtrimester, the risk to have a baby with Down syndrome is 1 in 342. At age 33 at midtrimester, the risk to have a baby with any chromosome abnormality is 1 in 172. Miriam has not had genetic screening in this but elected to have screening today. GENETIC TESTING OPTIONS Genetic testing during a includes screening and diagnostic procedures. Screening tests are non-invasive which means no risk to the and includes ultrasounds and blood work. The benefits and limitations of screening were reviewed. Screening tests provide a risk assessment (chance) specific to the for certain chromosome abnormalities but cannot definitively diagnose or exclude a chromosome abnormality. Follow-up genetic counseling and consideration of diagnostic testing is recommended with any abnormal screening result. Diagnostic testing during a is more certain and can test for more conditions. However, the tests do have a risk of miscarriage that requires careful consideration. These tests can detect chromosome ab normalities with greater than 99% certainty. Results can be compromised by maternal cell contamination or mosaicism and are limited by the resolution of current genetic testing technology. There is no screening or diagnostic test that detects all forms of defects or intellectual disability. We discussed the following screening options: Non-invasive testing (NIPT) Also called cell-free DNA screening because it detects chromosomes from the placenta in the person's blood Can be done any time after 10 weeks gestation Standard recommendation for NIPT screens for trisomy 21, trisomy 18, trisomy 13, with the option ofadding sex chromosome aneuploidies, without or without predicted sex Cannot screen for open neural tube defects, maternal serum AFP after 15 weeks is recommended New NIPT options include screening for other trisomies, microdeletion syndromes, and in some cases blood antigens. Guidelines do not recommend these conditions are included in standard screening. These options have limitations and should be discussed with a genetic counselor. However, current (2022) ACMG guidelines do recommend that screening for one microdeletion syndrome,called 22q11.2 deletion syndrome be offered to all patients. 22q11.2 deletion syndrome hasan estimated prevalence of 1 in 990 to 1 in 2148 (0.05-0.1%). Risk is not thought to increase with maternal age. Clinical features are variable but include congenital heart defects, cleft palate, developmental delays, immune system deficiencies, and hearing loss. Approximately 90% of cases are de brielle (a sporadic new change in a ). Cell-free DNA screening for 22q11.2 deletion syndrome isavailable with the inclusion of other microdeletion syndromes. There is less data about the performance of cell-free DNA screening for more rare microdeletions and the chance for false positives or negative may be increased. We discussed the limitations of cell-free DNA screening in detecting microdeletions and the possibility of false positives and false negatives. The patient opted into microdeletion syndrome screening. We discussed the following ultrasound options: Nuchal translucency (NT) ultrasound Ultrasound between 15y7o-38q8p that includes nuchal translucency measurement and nasal bone assessments Nuchal translucency refers to the space at the back of the neck where fluid builds up. All babies at this stage have fluid and there is only concern if there is too much fluid Nasal bone refers to the small bone in the nose. There is concern for conditions like Down syndromeif the bone cannot be seen at all This ultrasound can be done as part of first trimester screening, at the same time as another screen (NIPT), at the same time as a CVS, or if the patients does not want genetic screening. Markers on ultrasound detects about 70% of pregnancies with aneuploidy Abnormalities on NT ultrasound can also increase the risk for a defect, like a heart defect Comprehensive level II ultrasound ( Anatomy Ultrasound) Ultrasound done between 18-20 weeks gestation Screens for major defects and markers for aneuploidy (like trisomy 21 and trisomy 18) Includes looking at the fetus/baby's growth, heart, organs (stomach, kidneys), placenta, and amniotic fluid We discussed the following diagnostic options: Chorionic villus sampling (CVS) Invasive diagnostic procedure done between 10w0d and 13w6d The procedure collects a small sample from the placenta for the purpose of chromosomal testing and/or other genetic testing Diagnostic result; more than 99% sensitivity for chromosome abnormalities Cannot screen for open neural tube defects, maternal serum AFP after 15 weeks is recommended Amniocentesis Invasive diagnostic procedure done after 15 weeks gestation The procedure collects a small sample of amniotic fluid for the purpose of chromosomal testing and/or other genetic testing Diagnostic result; more than 99% sensitivity for chromosome abnormalities Testing for AFP in the amniotic fluid can test for open neural tube defects It was a pleasure to be involved with Miriam???s care. [id number] time of the meeting was 55 minutes. Cadence Jones GC, MS, C Board Certified and [place] Licensed Genetic Counselor [facility] Office: [phone] [facility]: [phone] [facility] documented in this encounter Plan of Treatment Scheduled Referrals Name Type Priority Associated Diagnoses Orde r Schedule Adult Oncology/Hematology Facilities Maintenance Assistant Referral Referral Routine: Next available opening Family history of malignant neoplasm of breast Expected: 01/22/2024 (Approximate), Expires: 01/21/2025 [facility] Maintenance Assistant Referral Referral Routine: Next available opening Family history of hypertrophic cardiomyopathy Expected: 01/22/2024 (Approximate), Expires: 01/21/2025 documented as of this encounter Results * (ABNORMAL) My[facility] Carrier Screening???Foresight (01/22/2024 12:57 PM CDT) See Scanned Result MYRIAD CARRIER SCREENING FORESIGHT-Sca nned(A) 02/07/2024 11:15 AM CDT [facility] Blood STRUCTURE OF LEFT UPPER LIMB / Unknown Venipuncture / Unknown 01/22/2024 12:57 PM CDT 01/22/2024 12:57 PM CDT Cadence Jones GC LAB - BLOOD ORDERABLES Final Result [facility] [address] [place] [address], [facility] [phone] * [facility]riad Non-Invasive Screening???Prequel (01/22/2024 12:57 PM CDT) See Scanned Result [facility] NON-INVASIVE SCREENING PREQUEL-Scann ed 02/03/2024 9:13 AM CDT [facility] Blood STRUCTURE OF LEFT UPPER LIMB / Unknown Venipuncture / Unknown 01/22/2024 12:57 PM CDT 01/22/2024 12:57 PM CDT Cadence Jones GC LAB - BLOOD ORDERABLES Final Result [facility] [address] [place] [address], [facility] [phone] documented in this encounter Visit Diagnoses Diagnosis Encounter for screening of mother- Primary Unspecified screening History of delivery, currently , first trimester Encounter of female for testing for genetic disease carrier status for procreative management Testing of female for genetic disease carrier status Encounter for procreative genetic counseling and testing Deafness congenital Unspecified hearing loss Family history of malignant neoplasm of breast Family history of hypertrophic cardiomyopathy Family history of other cardiovascular diseases documented in this encounter Care Teams Pathology Collector Relationship Specialty Start Date End Date No Ref-Primary, Physician PCP - General 01/01/24 02/03/24 documented as of this encounter
== END 2024-03-20 13:44 | disposition home or self-care (01) ==
LOC: NFLDREF 03-22 14:20
PROVIDERS: Visit Provider Obstetrics & Gynecology
DX: E03.9 Hypothyroidism, unspecified (principal)
CPT/HCPCS: 84443

== ENCOUNTER 2024-04-17 14:41 | Outpatient (CLI) | payer BC, SELFPAY | END 2024-04-17 14:42 | disposition home or self-care (01) | LOC: NFLDREF 14:42 | PROVIDERS: Visit Provider Obstetrics & Gynecology | DX: Z34.92 Encounter for supervision of normal pregnancy, unspecified, second trimester (principal); Z3A.24 24 weeks gestation of pregnancy | CPT/HCPCS: 86644; 86645 ==

== ENCOUNTER 2024-05-15 06:59 | Outpatient (CLI) | payer BC, SELFPAY ==
--- NOTE | 2024-05-15 07:15 | CRLHL7_ITS ---
For Patients: As a result of the Century Cures Act, medical imaging exams and procedure reports are released immediately into your electronic medical record. You may view this report before your referring provider. If you have questions, please contact your health care provider. OB ULTRASOUND LMP: 11/01/2023. SYLVAIN by LMP: 08/07/2024. GA: 8 w, 4 d. Single. Comparison: 12/31/2023, 01/22/2024. INDICATION: Circumvallate placenta. Growth. TECHNIQUE: Real time ayala scale imaging of the fetus was performed. Transabdominal and transvaginal. CERVIX: Visualized. Measurement: 3.0 cm. POSITIONING: Breech. AMNIOTIC FLUID: 5.1 cm. SDP (N: greater than 2 x 1 cm) PLACENTA: Technique: Transabdominal. PLACENTA POSITION: Anterior. DOPPLER: heart rate: 145 bpm. BIOMETRY: BPD: 7.0 cm. 28 w, 2 d, 46 percent. HC: 26.1 cm. 28 w, 2 d, 29 percent. AC: 24.3 cm. 28 w, 4 d, 59 percent. FL: 5.4 cm. 28 w, 4 d, 54 percent. FL/AC ratio: 22.3 percent. HC/AC ratio: 1.07. EFW: 1240 g. Weight: 2 lbs, 12 oz. age by this US: 28 w, 3 d. SYLVAIN by this US: 08/04/2024. Percentile by SYLVAIN: 57.7 percent. IMPRESSION: 1. Sonographic gestational age 28 weeks 3 days and sonographic due date 08/04/2024. Good correlation with dates. 2. Estimated weight 58th percentile. Abdominal circumference 59th percentile. 3. Cervical cerclage is present. There is mild funneling of the internal cervical os. The cervix otherwise appears closed and measures 3 cm in length. Cervical measurement performed with transvaginal imaging. Filemon Siddiqui M.D. Diagnostic Radiologist [email or web address] chandra/Dictated by: Filemon Siddiqui MD @ 05/15/2024 9:52:00 AM (Electronically Signed)
== END 2024-05-15 07:00 | disposition home or self-care (01) ==
LOC: US 07:01
PROVIDERS: PCP Family Medicine; Visit Provider Obstetrics & Gynecology
DX: O43.113 Circumvallate placenta, third trimester (principal); Z3A.28 28 weeks gestation of pregnancy
CPT/HCPCS: 76816; 76817; 84443; 86592

== ENCOUNTER 2024-06-09 16:53 | Outpatient (CLI) | payer BC, SELFPAY ==
[2024-06-09 17:25] VITALS: PULSE 80; O2SAT 97
[2024-06-09 17:30] VITALS: PULSE 85; O2SAT 98
[2024-06-09 17:31] VITALS: BP 104/62; PULSE 79
[2024-06-09 17:51] LABS: Appearance Urine Clear (Clear); Bilirubin Urine Negative (Negative); Blood Urine Trace-lysed (Negative); Color Urine Yellow (Yellow); Glucose Urine Negative (Negative); Ketones Urine 1+ (Negative); Leukocyte Esterase Urine Negative (Negative); Nitrite Urine Negative (Negative); Protein Urine Negative (Negative); Specific Gravity Urine 1.015 (1.000-1.030); Urobilinogen Urine 0.2 (0.2-1.0)
[2024-06-09 18:00] LABS: Amnisure Rom* Negative
[2024-06-09 18:02] LABS: RBC Urine 0-2 (0-2); WBC Urine 0-2 (0-5)
[2024-06-09 18:03] LABS: Clue Cells No Clue Cells Seen (None Seen); Trichomonas No Trichomonas Seen (None Seen); Yeast No Yeast Seen (None Seen)
--- NOTE | 2024-06-09 18:21 | PC.OBNST ---
NST Note NST Note Start: 06/09/24 17:00 Freq: ONCE Status: Active Protocol: Document 06/09/24 18:19 FABIANJohn (Rec: 06/09/24 18:21 MELCHOR [id number]) NST Note 5 Para (# of births) 3 EDC 08/07/24 Gestational Age In Weeks & Days 31 Weeks & 4 Days High Risk Factors Diabetes - Gestational Diet Controlled,History of /Stillborn Patient Presented with Complaint(s) of Leaking fluid Reactive Yes Appropriate for Gestational Age Yes CRUZ Meneses Date 06/09/24 Reactive Yes Appropriate for Gestational Age Yes CRUZ Quintanilla Date 06/09/24 OB NST charge Yes Complete NST Note via Write Note Yes The provider's electronic signature indicates the NST is reactive/appropriate for gestational age. *Note to provider: If an addendum is required, open the patient's chart and click on the note under the Nurse/Allied Health tab.
== END 2024-06-09 18:12 | disposition home or self-care (01) ==
LOC: OB OUT 16:53 → OB 16:53
PROVIDERS: PCP Family Medicine; Visit Provider Obstetrics & Gynecology
DX: O47.9 False labor, unspecified (principal)
CPT/HCPCS: 59025; 76815; 81001; 81003; 84112; 87210; G0463

== ENCOUNTER 2024-06-15 08:17 | Outpatient (CLI) | payer BC, SELFPAY ==
--- NOTE | 2024-06-15 08:15 | CRLHL7_ITS ---
For Patients: As a result of the Century Cures Act, medical imaging exams and procedure reports are released immediately into your electronic medical record. You may view this report before your referring provider. If you have questions, please contact your health care provider. INDICATION: Circumvallate placenta. TECHNIQUE: Ultrasound OB pelvis transabdominal. Real-time ayala-scale imaging of the fetus was performed as well as color Doppler and spectral Doppler analysis of the umbilical artery. COMPARISON: Ultrasound Ob June 09, 2024 FINDINGS: Single living intrauterine gestation. heart rate: 145 beats per minute. Presentation: Cephalic. Placenta: Anterior. Amniotic fluid deepest pocket: 7.5 cm. Cervix: Nonvisualized The following biometric measurements were obtained: Biparietal diameter: 8 cm, 32 weeks 2 day, 36 percentile. Head circumference: 30 centimeter, 33 weeks 1 day, 29 percentile. Abdominal circumference: 30 centimeter, 33 weeks 4 day, 80 percentile. Femur length: 6 centimeter, 32 weeks 2 day, 34 percentile. Ultrasound age: 32 weeks 6 day. SYLVAIN by US: 08/04/24. EFW: 2100 gram Grams, 59 %. IMPRESSION.: Single viable intrauterine with estimated gestational age of 32 weeks 6 day and EFW of 2100 grams (59th percentile). Dictated by Ceci Alvarez MD @ 06/15/2024 12:12:06 PM (Electronically Signed)
== END 2024-06-15 08:18 | disposition home or self-care (01) ==
LOC: US 08:17
PROVIDERS: PCP Family Medicine; Visit Provider Obstetrics & Gynecology
DX: O43.113 Circumvallate placenta, third trimester (principal); Z3A.32 32 weeks gestation of pregnancy
CPT/HCPCS: 76816

== ENCOUNTER 2024-07-12 13:08 | Inpatient (IN) | payer BC, SELFPAY ==
[2024-07-12] VITALS (13 sets, daily range): BP systolic 115–142; BP diastolic 68–85; PULSE 61–93; RESP 16–22; TEMP 36.4–37.1; BMI 31.7
[2024-07-12 11:51] LABS: Amnisure Rom* Negative
--- NOTE | 2024-07-12 13:11 | PM.OBHPLI ---
OB - H&P: HPI Labor/Induction History of Present Illness Date Seen: 07/12/24 Chief Complaint: The patient is a 33 year old 6 para 3113 at 36 2/7 weeks gestation by LMP consistent with 1st trimester ultrasound, who presents with painful uterine contractions. Chief complaint: maternity : 6 Para: 3 Date of last menstrual period: 11/01/23 Estimated date of delivery: 08/07/24 Gestational age based on last menstrual period: 36 Narrative: Patient with history of PTL and cervical cerclage placed this that was removed this past Saturday at 36 weeks. After removal cervix was found to be 2-3cm dilated. Patient presents today due to frequent uterine contractions and upon initial evaluation cervix had been found unchanged from clinic, but after 2 hours of monitoring her cervix is now 5/70%/-1, uterine contractions have remained regular and painful. Patient will be admitted to allow delivery. Specific Issues/Plans Partner: Evin. Children:Xade, Zala, Zo and Tray (4th child was a loss at 21w5d). Baby: [place] for her, her spouse knows the sex of the baby. #Gestational diabetes A1 1hr GTT: 225 Had prediabetes: HgbA1C = 5.7% at NOB and hx. of GDM in 3rd Nutrition consult US for EFW at 32 and 36 weeks: ordered on 05/15/24 If starts insulin will need twice weekly testing alternating NST and BPP weekly Diabetes education 06/29/24: Patient made significant dietary changes over the weekend and all but 1 of her blood sugars were normal. Education is provided if she needs insulin, but will hold on insulin at this time. Blood sugars to be sent to July in 1 week #Patient and partner are deaf, need ALS metal base blocker Declined amnio option for genetic testing w/ MFM # History of delivery and demise shortly after delivery 08/26/2023 at 21 weeks +5 (delivered in [place] while traveling) # Cervical insufficiency 08/27/2023 placental pathology: Acute chorioamnionitis w/ chorionic vasculitis & acute subchorionitis. 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 MFM referral on 01/22/24: NIPT drawn with at visit. Referrals placed to cancer in cardiac genetics based on her family history. Arrieta Cerclage placed by [facility] on 02/04/2024, 1 suture at w/ knot at 12 o'clock. [ ] Cerclage removal at 36-37 weeks Offer MSAFP at 15-20 weeks: declined Level II US at 18-20 weeks: scheduled w/ [facility] Cerclage removed on 07/10/24 # history of with the 2nd delivery (maternal exhaustion) History of x2 Desires TOLAC consent given to the patient to review on 02/11/2024 Chance of successful 84.2% # Asthma Uses albuterol once daily and Flonase nasal spray Recommend appointment with PCP for consideration of steroid inhaler # migraine headaches # Hypothyroidism TSH first-trimester 12/31/2023: 0.922 TSH second-trimester: 03/20/24 0.574 TSH 3rd trimester @ 28 weeks: 05/15/24 0.672 # ASCUS Pap/positive HPV, 18 04/20 Colposcopy during 06/26/2023, no biopsy Pap 12/31/2023: NIL, +HPV, 18. Patient declined colposcopy. #Circumvallate placenta Doing growth US at 28, 32 and 36 weeks (32 and 36 weeks for GDM) #Possible CMV exposure [x] IgG positive - nothing further required US 01/22/24: with [facility]. Single live at 11 weeks 5 days. Nuchal translucency measurement within normal range. The nasal bone was visualized. - 03/06: EFW 243g @ 75%ile, AC 64%ile. Anterior placenta, circumvallate. No previa, 3 vessel cord. Cervix closed, stable in length, cerclage present. 05/15/24 Growth: Breech, SDP 5.1cm, EFW 57.7%. PPD 46%, HC 29%, AC 59%, FL 54% 06/15: EFW 2100g at 59%ile. MVP 7.5cm. Immunizations; Flu: 02/25/24 at work Covid:02/25/24 at work Tdap: 05/29/24 RSV: [ History of Present Dating criteria: based on LMP care: good care Ultrasounds: normal 1st trimester US and normal mid trimester US complications: labor and gestational diabetes Labs Blood type: B (+) positive Rubella: immune RPR/VDLR: nonreactive GBS status: negative HBsAG: negative Review of Systems Status of ROS: Reports: 10 or more systems reviewed and unremarkable except as noted in History and below Meds Home Medications and Allergies Home Medications ?Medication ?Instructions ?Recorded ?Confirmed ?Type fluticasone furoate 100 1 inh inhalation DAILY 11/09/21 07/10/24 History mcg-vilanterol 25 mcg/dose inhalation powder fluticasone propionate 50 1 spray intranasal QDAY 11/09/21 07/10/24 History mcg/actuation nasal spray,suspension (Flonase Allergy Relief) levothyroxine 75 mcg capsule 75 mcg PO QDAY 06/03/23 07/10/24 History WLF-meak-KG-omega 3-fat com #1 27 1 cap PO DAILY PRN 12/31/23 07/10/24 History mg-1 mg-300 mg capsule Allergies Allergy/AdvReac Type Severity Reaction Status Date / Time cat dander Allergy Mild Anaphylaxis Verified 07/12/24 11:44 cefaclor Allergy Unknown Rash Verified 07/12/24 11:44 seasonal allergies Allergy Mild Cough Uncoded 07/10/24 09:37 OB - H&P: Exam Physical Exam: Vital signs: Temp Pulse Resp BP 98.4 F 90 16 126/76 07/12/24 10:46 07/12/24 10:46 07/12/24 10:46 07/12/24 10:46 OB - Problem Based A/P Additional Plan (1) labor: Status: Acute Plan: 1. Allow vaginal delivery. 2. Candidate for pain management as needed. 3. GBS negative, no need for antibiotic prophylaxis. (2) Gestational diabetes: Problem details: 1hr GTT: 225 on 05/15/24 Status: Acute Plan: 1. 2hrPP upon admission normal at 85. 2. Continue to monitor per protocol. (3) Hypothyroidism: Problem details: Dx at 2021 Status: Acute Plan: 1. Continue Levothyroxine 75mcg daily. (4) Exposure to cytomegalovirus (CMV): Status: Acute (5) Asthma: Status: Acute Plan: Will avoid hemabate. Delivery/Labor/Induction Plan Plan: expectant management
[2024-07-12 15:13] LABS: Basophils Absolute Auto 0.01 K/uL (0.00-0.30); Basophils Percent Auto 0.1 % (0.0-3.0); Eosinophils Absolute Auto 0.02 K/uL (0.00-0.50); Eosinophils Percent Auto 0.2 % (0.0-7.0); Hematocrit 34.6 % (33.0-51.0); Hemoglobin* 11.8 gm/dL (12.0-16.0); Immature Granulocytes Abs Auto 0.01 K/uL (0.00-0.30); Immature Granulocytes Pct Auto 0.1 %; Lymphocytes Absolute Auto 1.88 K/uL (0.90-2.90); Lymphocytes Percent Auto 23.3 % (20-44); Mean Corpuscular HGB Conc 34 gm/dL (32-36); Mean Corpuscular Hemoglobin 31 pg (26-34); Mean Corpuscular Volume 90 fL (80-100); Monocytes Percent Auto 6.1 % (0.0-11.0); Neutrophils Absolute Auto 5.67 K/uL (1.7-7.0); Neutrophils Percent Auto 70.2 % (42.0-72.0); Platelet Count* 213 K/uL (140-440); RDW Coefficient of Variation % 14.3 % (11.5-15.5); Red Blood Count 3.84 m/uL (4.00-5.20); White Blood Count* 8.08 K/uL (4.50-11.00)
[2024-07-12 15:21] LABS: Slide Review Reflex No
--- NOTE | 2024-07-12 16:59 | P.OBPN_ITS ---
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 Expect a vaginal delivery soon.
--- NOTE | 2024-07-12 19:45 | PM.OBPNL ---
Subjective Time Seen by Provider: 19:00 Date Seen: 07/12/24 Narrative: Good Objective Vital Signs: Last Vital Signs Temp 98.6 F 07/12/24 19:25 Pulse 85 07/12/24 19:27 Resp 16 07/12/24 19:25 BP 115/83 07/12/24 19:27 Pelvic Exam Dilation (cm): 9 Effacement (%): 90 Station: 0 Contractions Monitor mode: External Contraction pattern: Regular Contraction intensity: Moderate Assessment Station: 0 Amniotic Membrane Status: AROM Status: Category l Heart Rate Baseline: 135 Retirement Variability: Moderate (6-25) Monitor Accelerations: Present Monitor Decelerations: None Plan Plan: Recheck and cervix found 9cm, recommend AROM. Clear fluid, patient tolerated procedure well, would like to try Nitrous first for pain management if needed. Re check in 2 hours, expect vaginal delivery soon.
[2024-07-12] MEDS: INSULIN ASPART 100 UNIT/ML SUBCUT (20:11)
[2024-07-12] MEDS: LIDOCAINE 1 % PF 30 ML INJECTION (20:38)
[2024-07-12] MEDS: OXYTOCIN 30 unit/500 ML in NS 30 UNIT/500 ML BAG 300 UNIT IVPB ×2 (20:38→23:18)
--- NOTE | 2024-07-12 20:57 | W.PM.OBVAGDE ---
OB Procedure Vag Delivery Mother Details Mother Details: The patient is a 33 year-old, 6, Para 3, admitted on 07/12/24 at 36 2/7 Days gestation for a vaginal trial after section due to labor. Patient was admitted for observation and she kept progressing in cervical dilation and persistence of uterine contractions, progressed to 9cm where recommendation was given for AROM and delivered shortly after that. : 6 Para: 4 Weeks Gestation: 36.2 Admission Date: 07/12/24 Additional Details Amniotic Membrane Status: AROM Amniotic Membrane Rupture Date: 07/12/24 Amniotic Membrane Rupture Time: 19:08 Amniotic Membrane Fluid Description: Clear Analgesia/Anesthesia Type: Nitrous Oxide Waterbirth: No Pitcoin: No Intrapartal Events: Labor Augmentation Delivery augmentation: rupture of membranes Labor Onset: 17:00 Complete: 20:28 Pushin:28 Heart: heart tones during second stage were category 1. Delivery Details Delivery Date: 07/12/24 Delivery Time: 20:35 Route of delivery: Gender: Female Infant Viability: Alive; Heart Rate Present Position at Delivery: OA Delivery Details: Delivered via spontaneous vaginal delivery. Infant was placed on maternal abdomen.? Cord was clamped and cut after a 30-60 second delay. Nose and mouth were bulb suctioned.? Infant weight pending. 1 Minute Interval Total Score: 9 5 Minute Interval Total Score: 9 Additional Details Shoulder Dystocia: No Placenta Delivery Time: 20:40 Placental Delivery Description: Spontaneous Delivery repair: Vicryl Procedure Done: Global Blood Loss: 100 Laceration: Vaginal - 1st Degree Episiotomy Description: None Blood Loss Measurement Type: QBL Bakri Used: No Sponge/Need Count Correct: Yes Cord Vessel Description: 3 Vessels and Nuchal Cord Event Summary Status: Mother and were stable after delivery. Disposition: floor
[2024-07-13 02:45] VITALS: BP 109/68; PULSE 92; RESP 16; O2SAT 96
[2024-07-13] MEDS: ACETAMINOPHEN 500 MG TABLET 1000 MG PO ×2 (05:43→13:28)
[2024-07-13 05:49] VITALS: BP 112/77; PULSE 74; RESP 16; TEMP 37; O2SAT 96
[2024-07-13 06:37] LABS: Hemoglobin* 11.8 gm/dL (12.0-16.0)
[2024-07-13 08:44] VITALS: BP 101/63; PULSE 74; RESP 16; TEMP 36.7; O2SAT 96
--- NOTE | 2024-07-13 09:01 | PM.OBPNVD1 ---
OB - PN:Subj Subjective Date Seen: 07/13/24 Narrative: Miriam is a 33 y.o. G 6 P 4 who was admitted to [facility] for spontaneous labor following cerclage removed that was performed in clinic then triage on Monday 07/10. ?She had a NVD that was complicated by status. The patient feels well. ?The pain is well controlled with current medications. ?She has no new complaints. ?She is breast feeding and reports things are going well. the patient has done well.? Vitals have been stable.? She has remained afebrile.? Has a good appetite, is tolerating a general diet. ?She is voiding without difficulty.? She is passing gas and has not had a bowel movement.? She is ambulating and denies any dizziness.? Has small amount of rubra lochia. Problems: none OB - PN: Obj Exam Physical Exam: Vital signs: Temp Pulse Resp BP Pulse Ox O2 Del Method 98.1 F 74 16 101/63 96 Room Air 07/13/24 08:44 07/13/24 08:44 07/13/24 08:44 07/13/24 08:44 07/13/24 08:44 07/13/24 08:44 Narrative: GENERAL APPEARANCE:? normal affect, alert, no distress MOOD:? appropriate CHEST:? clear to auscultation HEART:? regular rate and rhythm ABDOMEN:? soft, non-tender the uterine fundus is at Umbilicus, Midline and is appropriate for the stage of recovery. PERINEUM:? mild edema of the perineum. EXTREMITIES:? normal and no edema OB - PN: Obj Data Labs Labs: Laboratory Results - last 24 hr 07/12/24 07/12/24 07/13/24 11:23 15:02 06:22 WBC 8.08 RBC 3.84 L Hgb 11.8 L 11.8 L Hct 34.6 MCV 90 MCH 31 MCHC 34 RDW Coeff of [place] 14.3 Plt Count 213 Neut % (Auto) 70.2 Lymph % (Auto) 23.3 [place] % (Auto) 6.1 Eos % (Auto) 0.2 Baso % (Auto) 0.1 Neut # (Auto) 5.67 Lymph # (Auto) 1.88 [place] # (Auto) 0.50 Eos # (Auto) 0.02 Baso # (Auto) 0.01 Abs Immat Gran (auto) 0.01 Imm/Tot Granulo (auto) 0.1 Membrane Rupture Negative Blood Type B Positive Antibody Screen NEGATIVE OB - PN: A/P Delivery Assessment and Plan (1) care and examination immediately after delivery: Status: Acute (2) Gestational diabetes: Problem details: 1hr GTT: 225 on 05/15/24 Status: Acute (3) Hypothyroidism: Problem details: Dx at 2021 Status: Acute (4) Exposure to cytomegalovirus (CMV): Status: Acute (5) Lactating mother: Status: Acute Plan day: 1 Plan: routine care Comments: , may see if needed? Hgb 11.8. ? GDM. Can do 2 hour gct tomorrow or at 6 week visit. TSH recheck at 6 week visit. Anticipate discharge tomorrow
[2024-07-13] MEDS: DOCUSATE SODIUM 100 MG CAPSULE PO (09:11)
[2024-07-13 13:09] VITALS: BP 119/79; PULSE 78; RESP 16; TEMP 36.7; O2SAT 96
[2024-07-13 16:45] VITALS: BP 109/75; PULSE 86; RESP 16; TEMP 36.5; O2SAT 96
[2024-07-13 22:45] VITALS: BP 116/78; PULSE 72; RESP 16; TEMP 36.9; O2SAT 97
[2024-07-14 07:25] LABS: Glucose Fasting 83 mg/dl (70-95)
--- NOTE | 2024-07-14 07:36 | P.DS_ITS ---
DS: Providers Provider Date Seen: 07/14/24 Date of admission: 07/12/24 13:08 Primary care physician: Pierre Dyson MD Admitting Clinician: Vida Steele MD Attending Physician on discharge: Vida Steele MD Date of Discharge: 07/14/24 DS: Diagnosis Discharge Diagnosis (1) Lactating mother: Status: Acute (2) care and examination immediately after delivery: Status: Acute (3) Gestational diabetes: Status: Acute Problem details: 1hr GTT: 225 on 05/15/24 PP 2hr GTT: fasting normal, 2hr elevated at 217 Exam Narrative: Exam Narrative: GENERAL APPEARANCE:? normal affect, alert, no distress? MOOD:? appropriate? CHEST:? clear to auscultation and percussion? HEART:? regular rate and rhythm? ABDOMEN:? soft, non-tender the uterine fundus is U/2 and is appropriate for the stage of recovery.? PERINEUM:? mild edema of the perineum, there is a 1st degree that is healing well.? EXTREMITIES:? normal and no edema? Const: Vital Signs, click to edit/add: Vital Signs - 24 hr 07/13/24 08:44 07/13/24 13:09 07/13/24 16:45 Temperature 98.1 F 98.1 F 97.7 F Pulse Rate [Pulse Oximeter] 74 78 86 Respiratory Rate 16 16 16 Blood Pressure [Ri ght Arm] 101/63 119/79 109/75 Pulse Oximetry 96 96 96 Oxygen Delivery Me thod Room Air Room Air Room Air 07/13/24 22:45 Temperature 98.5 F Pulse Rate [Pulse Oximeter] 72 Respiratory Rate 16 Blood Pressure [Ri ght Arm] 116/78 Pulse Oximetry 97 Oxygen Delivery Me thod Room Air Documenting provider has reviewed patient's vital signs: yes OB - DS: Summary Hospital Course Hospital Course: Miriam is a 33 year old G 6 P 4 at 36.2 weeks gestation that was admitted to the Center on 07/12/24 for spontaneous labor. She had an uncomplicated vaginal delivery. She delivered a viable female infant. She is breast feeding and feels it is going well but waiting for her milk to come in. Baby is above weight. the patient has done well. Her pain is well controlled with current medications.? She has no new complaints.? Urinary output is adequate and she is voiding without difficulty.? Has a good appetite, is tolerating a general diet, is passing flatus, and has had a bowel movement.? Has scant amount of rubra lochia.? She is ambulating well. her 2hr GTT today was collected. Her fasting was normal but the the PP was elevated at 217. Should repeat Hgb A1C in 1 year and consider behavioral health clinician consultation given this and elevated A1c at her initial OB visit. Peripartum Data delivery method: Vaginal Laceration description: Vaginal - 1st Degree Episiotomy description: None complications: none [place] Gender: Female Infant Discharge Plan: Home Status at Discharge Functional status at discharge: independent ambulation Overall status at discharge: patient is progressing back to baseline Time Spent with Patient Time attestation: Total time spent providing and/or coordinating discharge services: Discharge Plan Discharge Disposition: Home, Self-Care Date of Admission: 07/12/24 13:08 Attending Provider on Discharge: Barbara Marin Primary Care Provider: Pierre Dyson Condition: Stable Anticipated Discharge Date/Time: 07/14/24 23:00 Discharge Medications: New docusate sodium 100 mg Capsule 100 mg PO DAILY Qty: 90 0RF Rx Instructions: Take 1-2 tablets daily as needed for constipation. ibuprofen 600 mg Tablet 600 mg PO Q6H PRNQty: 60 0RF Continued fluticasone furoate-vilanterol 100-25 mcg/dose blister with device 1 inh inhalation DAILY fluticasone propionate [Flonase Allergy Relief] 50 mcg/actuation spray,suspension 1 spray intranasal QDAY Rx Instructions: administer into each nostril levothyroxine 75 mcg capsule 75 mcg PO QDAY PQL-loqq-IL-omega 3-fat com #1 27-1-300 mg capsule 1 cap PO DAILY PRN Discontinued (DME) lancets [Accu-Chek Softclix Lancets] Misc See Rx Instructions .Route Qty: 100 3RF Rx Instructions: As directed (DME) Test Strips Misc See Rx Instructions .MEDSUPPLY Qty: 100 3RF Rx Instructions: Test blood sugar 4 times daily. (DME) Blood Glucose Meter Misc See Rx Instructions .MEDSUPPLY Qty: 1 0RF Rx Instructions: As directed (DME) lancets Misc See Rx Instructions .MEDSUPPLY Qty: 100 3RF Rx Instructions: Test blood sugar 4 times daily. Discharge Orders: Discharge Order (Routine); Ordered 07/14/24 Ordered By: Barbara Marin Patient Education: OB Vaginal/Breast Feeding Additional Instructions: Discharge instructions were reviewed with the patient including signs and symptoms of infection and home going medications.? Lifting Restrictions: 20 pounds for 6? weeks? ?? Do not drive while taking narcotic pain meds.? Off Work or School for 6 weeks.? ?? Symptoms to report to doctor:? -Bleeding that saturates more than one pad per hour? -Passing clots larger than the size of a golf ball? -Pain not relieved by prescribed medication? -Fever above 100.4 degrees Fahrenheit? -A foul vaginal odor? -Difficulty in emotions, mood and functions? -Thoughts of hurting yourself and/or ? -Painful, reddened area in your breast? -Any drainage, redness or tenderness in your IV/epidural site? -Severe headache that doesn't improve after taking medications? -Changes in vision, including temporary loss of vision, blurred vision, and/or light sensitivity? -Upper abdominal pain (usually under ribs on the right side)? -Decrease in urination or painful, frequent urinating? -Chest pain? -Shortness of breath? -Tenderness or pain with redness and/swelling in the calf(s) of your leg? ?? Follow Up in clinic in 2 and 6 weeks.? ?? consultation services are available to all mothers and babies for the first year after delivery.? To make an appointment, please call [phone].? Activity Level: Activity as Tolerated Discharge Diet: Regular Follow Up Appointments: [facility] [Provider Group] Forms: Gertrudeth Info Instructions
[2024-07-14 08:36] VITALS: BP 104/72; PULSE 98; RESP 16; TEMP 36.7; O2SAT 96
[2024-07-14] MEDS: ACETAMINOPHEN 500 MG TABLET 1000 MG PO ×2 (08:51→21:25)
[2024-07-14] MEDS: DOCUSATE SODIUM 100 MG CAPSULE PO (08:51)
[2024-07-14 09:17] LABS: Glucose 2 Hour 217 mg/dl (70-155)
[2024-07-14 16:40] VITALS: BP 106/73; PULSE 83; RESP 16; TEMP 36.8; O2SAT 96
[2024-07-15 14:04] LABS: Rapid Plasma Reagin (RPR) Non Reactive (Non Reactive)
== END 2024-07-14 21:35 | disposition home or self-care (01) | DRG 560 ==
LOC: OB OUT 13:09 → OB 07-13 08:05
PROVIDERS: Admitting Provider Obstetrics & Gynecology; PCP Family Medicine; Visit Provider Obstetrics & Gynecology
DX: O34.211 Maternal care for low transverse scar from previous cesarean delivery (principal); O24.420 Gestational diabetes mellitus in childbirth, diet controlled; O60.14X0 Preterm labor third trimester with preterm delivery third trimester, not applicable or unspecified; O70.0 First degree perineal laceration during delivery; O34.33 Maternal care for cervical incompetence, third trimester; O43.113 Circumvallate placenta, third trimester; J45.909 Unspecified asthma, uncomplicated; O99.284 Endocrine, nutritional and metabolic diseases complicating childbirth; E03.9 Hypothyroidism, unspecified; H91.93 Unspecified hearing loss, bilateral; Z20.828 Contact with and (suspected) exposure to other viral communicable diseases; Z87.410 Personal history of cervical dysplasia; Z87.51 Personal history of pre-term labor; Z37.0 Single live birth; Z3A.36 36 weeks gestation of pregnancy
CPT/HCPCS: 36415; 59025; 76816; 82947; 82950; 84112; 85018; 85025; 86592; 86850; 86900; 86901; 87081; 87653; 88307; G0463; A9270; J2003; J3010

== ENCOUNTER 2024-08-26 10:55 | Outpatient (CLI) | payer BC, SELFPAY | END 2024-08-26 10:56 | disposition home or self-care (01) | LOC: NFLDREF 08-28 00:50 | PROVIDERS: PCP Family Medicine; Referring Provider Family Medicine; Visit Provider Registered Nurse | DX: E03.9 Hypothyroidism, unspecified (principal) | CPT/HCPCS: 84439; 84443 ==

== ENCOUNTER 2024-10-29 15:48 | Outpatient (CLI) | payer BC, SELFPAY | END 2024-10-29 15:49 | disposition home or self-care (01) | LOC: NFLDREF 11-03 03:42 | PROVIDERS: PCP Family Medicine; Referring Provider Family Medicine; Visit Provider Obstetrics & Gynecology | DX: E03.9 Hypothyroidism, unspecified (principal); R87.810 Cervical high risk human papillomavirus (HPV) DNA test positive | CPT/HCPCS: 84439; 84443 ==